=== PATIENT | male | born 1940 | race Caucasian/White ===

== ENCOUNTER → 2016-10-21 | Outpatient (CLI) | payer OTHER ==
[~2016-10-21] MED LIST: AMLO-114 PO; ASCO100061 PO; ASPEC81 PO; ESCI1TAB6 PO; FERR325T PO; FERR325T51 PO; LPT/40 PO; LPT10 PO; MULT-513 PO; PANT40TA PO; PRT/40 PO; SELE200T9 PO
[2016-10-21 13:37] LABS: BASO % 0.2 %; BASO ABS # 0.01 K/uL (0-0.2); COMPLETE YES; EOS % 0.6 %; HEMATOCRIT 41.6 % (42-52); IG% 0.4 %; LYMPH % 27.9 %; LYMPH ABS # 1.49 K/uL (1.2-3.4); MEAN CELL VOLUME 95.4 fL (80-100); MEAN CORPUSCULAR HEMOGLOBIN 31.4 pg (25-34); MEAN CORPUSCULAR HGB CONC 32.9 g/dl (32-36); MEAN PLATELET VOLUME 10.4 fL (7.4-10.4); MONO % 10.7 %; NEUT % 60.2 %; PLATELET COUNT 207 K/uL (130-400); RED BLOOD COUNT 4.36 M/uL (4.7-6.1); WHITE BLOOD COUNT 5.34 K/uL (4.8-10.8)
[2016-10-21 13:49] LABS: ALT/SGPT 26 U/L (12-78); AST/SGOT 22 U/L (15-37); BLOOD UREA NITROGEN 22 mg/dl (7-18); BUN/CREATININE RATIO 17.3 (10-20); CALCIUM 8.7 mg/dl (8.5-10.1); CARBON DIOXIDE 24 mmol/L (21-32); CHLORIDE 109 mmol/L (98-107); GLUCOSE 98 mg/dl (70-99); SODIUM 141 mmol/L (136-145)
[2016-10-21 13:59] LABS: ALB/GLOB RATIO 0.9 (0.9-2); ALKALINE PHOSPHATASE 82 U/L (45-117)
[2016-10-21 14:53] LABS: LYME DISEASE AB IGG NEG (NEG)
[2016-10-21 14:56] LABS: LYME DISEASE AB IGM NEG (NEG)
--- NOTE | 2016-10-26 11:01 | CODING QUERY MEDICAL NECESSITY ---
CQSUPPORTING DIAGNOSIS NEEDED A supporting diagnosis is required for the test/procedure performed on this patient in order for us to be reimbursed by the patient's insurance. Please provide a supporting diagnosis for the following test/procedure listed below next to the test name along with your signature. *If there is no additional diagnosis for this patient that would support the following test/procedure please document that below next to the test/procedure. Test(s)/Procedure(s) that require a supporting diagnosis: DOS 10/21/16 VITAMIN B12 ORDERED BY JARRED NULL Provider Signature: Date: Thank you Reina Garcia Health Information Management Once completed, please kindly fax back to [phone] For questions please call [phone]
== END | disposition home or self-care (01) ==
LOC: C.LABPBG 07:38
PROVIDERS: ATTEND Family Medicine
DX: N52.9 Male erectile dysfunction, unspecified (principal); C61 Malignant neoplasm of prostate; R31.29 Other microscopic hematuria; R41.3 Other amnesia; R26.89 Other abnormalities of gait and mobility; R53.83 Other fatigue; D50.9 Iron deficiency anemia, unspecified

== ENCOUNTER 2016-10-24 15:13 | Inpatient (IN) | payer OTHER ==
[~2016-10-24] VITALS: Ht 175.3 cm; Wt 80.0 kg
[~2016-10-24 15:13] MED LIST changes: -ASCO100061 PO; -ASPEC81 PO; -GADAVIST IV PRN; -LPT/40 PO; -LPT10 PO; -PRT/40 PO
[2016-10-24] MEDS ORDERED: PRT/40 PO (15:31)
[2016-10-24] MEDS ORDERED: SODIUM CHLORIDE 0.9% 1000ML 1,000 ML IV SCH (16:41)
[2016-10-24] MEDS ORDERED: ASCO100061 PO (16:42)
[2016-10-24] MEDS ORDERED: LPT10 PO (16:44)
[2016-10-24 17:01] LABS: BASO % 0.2 %; BASO ABS # 0.01 K/uL (0-0.2); COMPLETE YES; EOS % 0.8 %; HEMATOCRIT 42.2 % (42-52); IG% 0.2 %; LYMPH % 30.5 %; LYMPH ABS # 1.59 K/uL (1.2-3.4); MEAN CELL VOLUME 93.4 fL (80-100); MEAN CORPUSCULAR HEMOGLOBIN 30.5 pg (25-34); MEAN CORPUSCULAR HGB CONC 32.7 g/dl (32-36); MEAN PLATELET VOLUME 9.5 fL (7.4-10.4); MONO % 10.2 %; NEUT % 58.1 %; PLATELET COUNT 202 K/uL (130-400); RED BLOOD COUNT 4.52 M/uL (4.7-6.1); WHITE BLOOD COUNT 5.21 K/uL (4.8-10.8)
[2016-10-24 17:07] LABS: PARTIAL THROMBOPLASTIN RATIO 1.1; PROTHROMBIN TIME (PATIENT) 10.7 SECONDS (9.0-12.0)
[2016-10-24 17:08] LABS: BUN/CREATININE RATIO 13.3 (10-20); CALCIUM 8.5 mg/dl (8.5-10.1); CREATININE 1.3 mg/dl (0.60-1.40); POTASSIUM 3.8 mmol/L (3.5-5.1)
--- NOTE | 2016-10-24 17:08 | DIAGNOSTIC IMAGING REPORT ---
CHEST ONE VIEW PORTABLE CLINICAL HISTORY: Stroke COMPARISON STUDY: Chest CT November 12, 2015. FINDINGS: There is no pneumothorax. Mild elevation of the right hemidiaphragm is unchanged. Linear bibasilar opacities suggest atelectasis. There is no evidence of pulmonary edema. Mild cardiomegaly is unchanged. IMPRESSION: 1. No acute findings. 2. Linear bibasilar opacities suggestive of atelectasis. Electronically signed by: Angel Mann M.D. 10/24/2016 5:06 PM Dictated Date/Time: 10/24/2016 5:06 PM
[2016-10-24] MEDS ORDERED: PHARMACIST DISCHARGE MED REC CONSULT PRN (18:00)
[2016-10-24 20:00] VITALS: BP 162/80; PULSE 80; TEMP 36.9; O2SAT 95; Ht 175.3 cm; Wt 80.0 kg
--- NOTE | 2016-10-24 20:34 | EMERGENCY ROOM VISIT NOTE ---
History Report prepared by Ruben: Giovani Cedeño Under the Supervision of: Dr. Krunal Smith M.D. First contact with patient: 16:29 Chief Complaint: ABNORMAL DIAGNOSTIC TESTING Stated Complaint: ABNORMAL MRI History of Present Illness The patient is a 75 year old male who presents to the Emergency Room with an abnormal MRI that was taken earlier today. Per the patient's family, Dr. Hernandes of neurology had ordered the MRI because the patient had fallen while walking in June, and has been feeling fatigued for a while. The patient says that he has noticed feeling off balance intermittently for the past few days. The MRI revealed a 4x4 area consistent with an acute lacunar infarct. The patient states that he currently feels fine. He denies any fevers, recent cold symptoms , vision problems, trouble swallowing, abdominal pain, vomiting, diarrhea, or unilateral numbness or weakness. The patient was taken off Aspirin because he had went through radiation and had a lot of bleeding, per the patient's family. The patient does have a history of a stroke. Source of History: patient, family Onset: Earlier today Position: other (global - abnormal MRI) Quality: other (4x4 area consistent with an acute lacunar infarct) Associated Symptoms: + fatigue, No fevers, No vomiting, No abdominal pain, No diarrhea, No weakness (unilateral), No numbness (unilateral) Note: Associated symptoms: Off balance intermittently past few days. Denies recent cold symptoms, vision problems, trouble swallowing. Review of Systems See HPI for pertinent positives & negatives. A total of 10 systems reviewed and were otherwise negative. Past Medical & Surgical Medical Problems: (1) CVA (cerebral vascular accident) (2) Hypertension Family History Diabetes mellitus Heart disease Hypertension Social History Smoking Status: Never Smoker Alcohol Use: none Drug Use: none Marital Status: Housing Status: lives with family Occupation Status: employed, retired Current/Historical Medications Scheduled Amlodipine (Norvasc), 10 MG PO DAILY Ascorbic Acid (Ascorbic Acid), 1 TAB PO DAILY Atorvastatin (Atorvastatin Calcium), 1 TAB PO DAILY Ferrous Sulfate (Ferrous Sulfate), 1 TAB PO DAILY Multivitamins/Minerals (Mvi With Minerals), 1 TAB PO DAILY Pantoprazole (Pantoprazole Sodium), 1 TAB PO DAILY Allergies Coded Allergies: No Known Allergies (Unverified , 10/24/16) Physical Exam Vital Signs Date Time Temp Pulse Resp B/P (MAP) Pulse Ox O2 Delivery O2 Flow Rate FiO2 10/24/16 18:33 68 18 147/81 98 Room Air 10/24/16 17:05 70 18 147/81 97 Room Air 10/24/16 15:39 84 10/24/16 15:36 76 18 158/81 97 Room Air 10/24/16 15:20 36.9 77 18 157/81 97 Room Air Physical Exam Constitutional: Vital signs reviewed. Eyes: Pupils are equal round reactive to light. Conjunctiva are noninjected. ENT: Pharynx is clear without erythema or exudate. Mucous membranes are moist. Neck supple without meningeal signs. Respiratory: Clear to auscultation bilaterally. Breath sounds are equal bilaterally. Cardiovascular: Regular rate and rhythm. No rubs or gallops. No carotid bruits. GI: Soft, nondistended and nontender. Bowel sounds are present. Musculoskeletal: No peripheral edema. No lower extremity tenderness. Integumentary: No cyanosis. Neurological: The patient is awake and alert. Cranial nerves II-XII are intact. Motor is 5 out of 5 all extremities. Sensation is intact to light touch all extremities. Normal speech. No pronator drift. Psychiatric: Normal affect. Medical Decision & Procedures ER Provider Diagnostic Interpretation: X-ray results as stated below per interpretation by me and the radiologist: CHEST ONE VIEW PORTABLE CLINICAL HISTORY: Stroke COMPARISON STUDY: Chest CT November 12, 2015. FINDINGS: There is no pneumothorax. Mild elevation of the right hemidiaphragm is unchanged. Linear bibasilar opacities suggest atelectasis. There is no evidence of pulmonary edema. Mild cardiomegaly is unchanged. IMPRESSION: 1. No acute findings. 2. Linear bibasilar opacities suggestive of atelectasis. Electronically signed by: Angel Mann M.D. 10/24/2016 5:06 PM Dictated Date/Time: 10/24/2016 5:06 PM Laboratory Results 10/24/16 15:35 Red Blood Count 4.52, Mean Corpuscular Volume 93.4, Mean Corpuscular Hemoglobin 30.5, Mean Corpuscular Hemoglobin Concent 32.7, Mean Platelet Volume 9.5, Neutrophils (%) (Auto) 58.1, Lymphocytes (%) (Auto) 30.5, Monocytes (%) (Auto) 10.2, Eosinophils (%) (Auto) 0.8, Basophils (%) (Auto) 0.2, Neutrophils # (Auto ) 3.03, Lymphocytes # (Auto) 1.59, Monocytes # (Auto) 0.53, Eosinophils # (Auto ) 0.04, Basophils # (Auto) 0.01 10/24/16 15:35 Test 10/24/16 15:35 White Blood Count 5.21 K/uL (4.8-10.8) Red Blood Count 4.52 M/uL (4.7-6.1) Hemoglobin 13.8 g/dL (14.0-18.0) Hematocrit 42.2 % (42-52) Mean Corpuscular Volume 93.4 fL (80-100) Mean Corpuscular Hemoglobin 30.5 pg (25-34) Mean Corpuscular Hemoglobin Concent 32.7 g/dl (32-36) Platelet Count 202 K/uL (130-400) Mean Platelet Volume 9.5 fL (7.4-10.4) Neutrophils (%) (Auto) 58.1 % Lymphocytes (%) (Auto) 30.5 % Monocytes (%) (Auto) 10.2 % Eosinophils (%) (Auto) 0.8 % Basophils (%) (Auto) 0.2 % Neutrophils # (Auto) 3.03 K/uL (1.4-6.5) Lymphocytes # (Auto) 1.59 K/uL (1.2-3.4) Monocytes # (Auto) 0.53 K/uL (0.11-0.59) Eosinophils # (Auto) 0.04 K/uL (0-0.5) Basophils # (Auto) 0.01 K/uL (0-0.2) RDW Standard Deviation 46.5 fL (36.4-46.3) RDW Coefficient of Variation 13.6 % (11.5-14.5) Immature Granulocyte % (Auto) 0.2 % Immature Granulocyte # (Auto) 0.01 K/uL (0.00-0.02) Prothrombin Time 10.7 SECONDS (9.0-12.0) Prothromb Time International Ratio 1.0 (0.9-1.1) Activated Partial Thromboplast Time 28.2 SECONDS (21.0-31.0) Partial Thromboplastin Ratio 1.1 Anion Gap 8.0 mmol/L (3-11) Est Creatinine Clear Calc Drug Dose 47.6 ml/min Estimated GFR () 61.0 Estimated GFR (Non- 52.6 BUN/Creatinine Ratio 13.3 (10-20) Calcium Level 8.5 mg/dl (8.5-10.1) Medications Administered Medications (Trade) Dose Ordered Sig/Arturo Route Start Time Stop Time Status Last Admin Dose Admin Sodium Chloride 1,000 ml @ 50 mls/hr Q20H IV 10/24/16 16:41 11/23/16 16:40 10/24/16 16:41 50 MLS/HR ECG Indication: other (stroke) Rate (beats per minute): 72 Rhythm: normal sinus Findings: no acute ischemic change, no ectopy, other (limited due to baseline artifact) ED Course 1632: The patient was evaluated in room C4. A complete history and physical exam was performed. The patient verbally expressed understanding and agreement of the treatment plan. The patient will be evaluated for further treatment. 1639: I discussed the patient with Dr. Alamo's PA - Dr. Alamo will evaluate the patient for further treatment. 1641: Ordered NSS 1000 ml @ 50 mls/hr IV. Medical Decision This is a 75-year-old male who presents with an abnormal MRI. I did perform a limited focused review of portions of the patient's old chart on the electronic medical record. The patient had an MRI of the brain today which showed a 4x4 mm area consistent with an acute lacunar infarct. He also has increased signal within the distal basilar artery concerning for thrombus or slow flow. Blood Pressure Screening: Patient was found to have an elevated blood pressure and was referred to their primary doctor for recheck and further treatment. Medication Reconciliation: I attest that I have personally reviewed the patient' s current medication list. I did evaluate the patient as noted above. The patient is presenting with an MRI showing acute lacunar infarct as well as concerning flow in the basilar artery. Dr. Hernandes called and spoke to another physician and recommended he be admitted to the hospital for further evaluation. IV access was established. The patient was placed on a continuous monitoring engineer. I did order and personally review the patient's 12-lead EKG and chest x-ray as described above. I did order and review the patient's blood work as noted in the electronic medical record. I did discuss the case with the hospitalist and residential case manager. Consults Time Called: 163 Consulting Physician: Dr. Ashutosh STERN Returned Call: [phone] I discussed the patient with Dr. Alamo's PA - Dr. Alamo will evaluate the patient for further treatment. Impression Primary Impression: Acute CVA (cerebrovascular accident) Scribe Attestation The scribe's documentation has been prepared under my direct and personally reviewed by me in its entirety. I confirm that the note above accurately reflects all work, treatment, procedures, and medical decision making performed by me. Departure Information Dispostion Being Evaluated By Hospitalist Referrals Chanel Cruz M.D. (PCP) Patient Instructions [facility]
--- NOTE | 2016-10-24 20:57 | DIAGNOSTIC IMAGING REPORT ---
MRA OF THE INTRACRANIAL CIRCULATION WITHOUT CONTRAST CLINICAL HISTORY: Stroke - Attention to [place] [facility] [place]. COMPARISON STUDY: MRI of the brain performed earlier today. TECHNIQUE: Utilizing a 1.5 Michelle magnet and 3-D [id number] technique, unenhanced MRA of the intracranial circulation was obtained. FINDINGS: This exam is moderately compromised by motion artifact. However, the bilateral M1, M2, A1 and A2 segments appear patent. There is a diminutive right vertebral artery which was shown to be patent on contrast-enhanced MRA of the neck. The left vertebral artery is dominant and patent. 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 There are bilateral posterior communicating arteries. The posterior cerebral arteries appear diminutive. These are suboptimally assessed due to artifact on this exam. There is diminished flow within the bilateral posterior cerebral arteries although the vessels are likely patent. There is a suspected tiny 3 mm aneurysm arising from the inferior aspect of the left supraclinoid ICA. IMPRESSION: 1. 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 This accounts for the abnormality on MRI of the brain from earlier today. This occlusion is age indeterminate although probably chronic. 2. Minimal flow identified within the bilateral posterior cerebral arteries which are suboptimally assessed on this exam due to artifact. These vessels are likely patent although occlusion would be difficult to exclude on this exam. 3. 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 Electronically signed by: Angel Mann M.D. 10/24/2016 8:56 PM Dictated Date/Time: 10/24/2016 8:05 PM
--- NOTE | 2016-10-24 20:57 | DIAGNOSTIC IMAGING REPORT ---
MRA OF THE NECK WITH AND WITHOUT CONTRAST CLINICAL HISTORY: Stroke. COMPARISON STUDY: None. TECHNIQUE: Unenhanced and contrast-enhanced MRA of the neck was performed. Injection of 8 mL of Gadavist IV was uneventful. NASCET criteria were utilized to estimate the degree of carotid stenosis. FINDINGS: The vertebral arteries are suboptimally assessed on this exam. The vertebral artery origins are not imaged on this exam. The left vertebral artery is dominant and patent. There is no significant stenosis within the bilateral common carotid and internal carotid arteries. Note is made of occlusion of the proximal basilar artery with distal reconstitution. This accounts for the abnormality on MRI of the brain from earlier today. IMPRESSION: 1. 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 This occlusion is age indeterminate although probably chronic given the findings on the brain MRI. 2. No significant stenosis within the bilateral common carotid and internal carotid arteries. Electronically signed by: Angel Mann M.D. 10/24/2016 8:56 PM Dictated Date/Time: 10/24/2016 8:08 PM
[2016-10-24 23:33] VITALS: BP 130/71; PULSE 76; TEMP 36.9; O2SAT 97
[2016-10-25 01:10] LABS: CKMB/CK RATIO 1.7 (0-3.0)
[2016-10-25 03:49] VITALS: BP 153/85; PULSE 81; TEMP 37; O2SAT 96
[2016-10-25 06:42] LABS: ESTIMATED AVERAGE GLUCOSE 114 mg/dl; HA1C FLAG Normal (Normal)
--- NOTE | 2016-10-25 08:02 | History and Physical ---
History & Physical Date & Time of Service: Oct 25, 2016 at 07:52 Chief Complaint: CVA Primary Care Physician: Chanel Cruz M.D. History of Present Illness Source: patient, family, spouse The patient is a 75-year-old male referred to the emergency department by Dr. Hernandes his neurologist after an MRI showed a right acute lacunar infarct. Family has noted a worsening in his general mentation over the past few days, and he has noticed more of an issue with imbalance. The MRI was initially performed due to the patient's history of falling while walking in June, and some persistent fatigue since that time. The patient has had a normal appetite , and no difficulty with speech or with swallowing. The patient has a history of prostate cancer a few years ago, and was taken off aspirin due to hematuria at that time. His aspirin was not restarted after that incident. Past Medical/Surgical History Medical Problems: (1) Hypertension Status: Chronic Family History Diabetes mellitus Heart disease Hypertension Social History Smoking Status: Never Smoker Smokeless Tobacco Use: No Alcohol Use: none Drug Use: none Marital Status: Housing status: lives with family Occupational Status: employed, retired Multi-Drug Resistant Organisms History of MDRO: No Allergies Coded Allergies: No Known Allergies (Unverified , 10/24/16) Home Medications Scheduled Amlodipine (Norvasc), 10 MG PO DAILY Ascorbic Acid (Ascorbic Acid), 1,000 MG PO DAILY Atorvastatin (Atorvastatin Calcium), 1 TAB PO DAILY Ferrous Sulfate (Ferrous Sulfate), 325 MG PO DAILY Multivitamins/Minerals (Mvi With Minerals), 1 TAB PO DAILY Pantoprazole (Pantoprazole Sodium), 1 TAB PO DAILY Review of Systems The patient denies chest pain, palpitations, shortness of breath, cough, lower extremity swelling, sore throat, fevers, chills, sweats, weight change, fatigue , nausea, vomiting, abdominal pain, pelvic pain, blood in urine or stool, dysuria, urinary frequency or urgency, rash, abnormal bruising or bleeding, focal weakness, numbness or tingling in arms or legs, night sweats, or allergy symptoms. The review of systems is otherwise negative other than for that already noted above, and at least 10 systems have been reviewed. Physical Exam Vital Signs Date Time Temp Pulse Resp B/P (MAP) Pulse Ox O2 Delivery O2 Flow Rate FiO2 10/25/16 04:00 Room Air 10/25/16 03:49 37.0 81 16 153/85 (107) 96 Room Air 10/25/16 00:00 Room Air 10/24/16 23:33 36.9 76 17 130/71 (90) 97 Room Air 10/24/16 20:00 36.9 80 20 162/80 95 Room Air 10/24/16 20:00 Room Air 10/24/16 19:49 36.9 68 18 147/81 98 10/24/16 18:33 68 18 147/81 98 Room Air 10/24/16 17:05 70 18 147/81 97 Room Air 10/24/16 15:39 84 10/24/16 15:36 76 18 158/81 97 Room Air 10/24/16 15:20 36.9 77 18 157/81 97 Room Air The patient is awake, well-developed and adequately nourished, alert and oriented 3, normocephalic and atraumatic, lying in bed and in no acute distress. HEENT--PERRL, EOMI, mucous membranes and oropharynx normal. Neck--supple, no JVD or bruits, thyroid normal, trachea midline, no adenopathy. Heart--normal S1 and S2, no extra beats, no murmurs, rubs or gallops. Lungs--clear bilaterally with good air movement, no respiratory distress, no accessory muscle use. Abdomen--normal bowel sounds and soft, nontender and nondistended, no hernias or masses, no organomegaly. Extremities--no cyanosis, clubbing or edema. There are good distal pulses b/l. Dermatologic--normal skin turgor, normal color, warm and dry, no abnormal lymph nodes, no rash. Neurologic--cranial nerves II through XII grossly intact. Rheumatologic--normal range of motion of joints. Psychiatric--normal affect. Diagnostics Laboratory Results Results Past 24 Hours Test 10/24/16 15:35 10/25/16 00:16 10/25/16 07:37 10/25/16 07:42 Range/Units White Blood Count 5.21 4.8-10.8 K/uL Red Blood Count 4.52 4.7-6.1 M/uL Hemoglobin 13.8 14.0-18.0 g/dL Hematocrit 42.2 42-52 % Mean Corpuscular Volume 93.4 80-100 fL Mean Corpuscular Hemoglobin 30.5 25-34 pg Mean Corpuscular Hemoglobin Concent 32.7 32-36 g/dl Platelet Count 202 130-400 K/uL Mean Platelet Volume 9.5 7.4-10.4 fL Neutrophils (%) (Auto) 58.1 % Lymphocytes (%) (Auto) 30.5 % Monocytes (%) (Auto) 10.2 % Eosinophils (%) (Auto) 0.8 % Basophils (%) (Auto) 0.2 % Neutrophils # (Auto) 3.03 1.4-6.5 K/uL Lymphocytes # (Auto) 1.59 1.2-3.4 K/uL Monocytes # (Auto) 0.53 0.11-0.59 K/uL Eosinophils # (Auto) 0.04 0-0.5 K/uL Basophils # (Auto) 0.01 0-0.2 K/uL RDW Standard Deviation 46.5 36.4-46.3 fL RDW Coefficient of Variation 13.6 11.5-14.5 % Immature Granulocyte % (Auto) 0.2 % Immature Granulocyte # (Auto) 0.01 0.00-0.02 K/uL Prothrombin Time 10.7 9.0-12.0 SECONDS Prothromb Time International Ratio 1.0 0.9-1.1 Activated Partial Thromboplast Time 28.2 21.0-31.0 SECONDS Partial Thromboplastin Ratio 1.1 Sodium Level 140 136-145 mmol/L Potassium Level 3.8 3.5-5.1 mmol/L Chloride Level 107 98-107 mmol/L Carbon Dioxide Level 25 21-32 mmol/L Anion Gap 8.0 3-11 mmol/L Blood Urea Nitrogen 17 7-18 mg/dl Creatinine 1.30 0.60-1.40 mg/dl Est Creatinine Clear Calc Drug Dose 47.6 ml/min Estimated GFR () 61.0 Estimated GFR (Non- 52.6 BUN/Creatinine Ratio 13.3 10-20 Random Glucose 130 70-99 mg/dl Estimated Average Glucose 114 mg/dl Hemoglobin A1c 5.6 4.5-5.6 % Calcium Level 8.5 8.5-10.1 mg/dl Total Creatine Kinase 82 39-308 U/L Creatine Kinase MB 1.4 0.5-3.6 ng/ml Creatine Kinase MB Ratio 1.7 0-3.0 Troponin I < 0.015 0-0.045 ng/ml Diagnostic Radiology Patient Name: STEPHANY GREEN Unit Number: [id number] Dictated: 10/24/161705 Transcribed: 10/24/161705 JA Printed Date/Time: [~ rep prt dt]/[~ rep prt tm] [~ rep ct labl] - [~ rep ct ivnm] [facility] [place] [place] [address] Dictated: 10/24/161705 Transcribed: 10/24/161705 JA Printed Date/Time: [~ rep prt dt]/[~ rep prt tm] [~ rep ct labl] - [~ rep ct ivnm] [~ rep ct add3]] CHEST ONE VIEW PORTABLE CLINICAL HISTORY: Stroke COMPARISON STUDY: Chest CT November 12, 2015. FINDINGS: There is no pneumothorax. Mild elevation of the right hemidiaphragm is unchanged. Linear bibasilar opacities suggest atelectasis. There is no evidence of pulmonary edema. Mild cardiomegaly is unchanged. IMPRESSION: 1. No acute findings. 2. Linear bibasilar opacities suggestive of atelectasis. Electronically signed by: Angel Mann M.D. 10/24/2016 5:06 PM Dictated Date/Time: 10/24/2016 5:06 PM The status of this report is Signed. Draft = Not yet reviewed or approved by Radiologist. Signed = Reviewed and approved by Radiologist. <AttendingPhy></AttendingPhy> <FamilyPhy>Chanel Cruz M.D.</FamilyPhy> < PrimaryPhy>Chanel Crzu M.D.</PrimaryPhy> <UnitNumber>[id number]</UnitNumber> < VisitNumber>[id number]</VisitNumber> <PatientName>STEPHANY GREEN</PatientName > <DateOfBirth>1940</DateOfBirth> <Location>C.EDC</Location> <ServiceDate> 10/24/16</ServiceDate> <MNE>ESINDI</MNE> <OrderingPhy>Krunal Smith MD</ OrderingPhy> <OrderingPhyMNE>f rep ord dr pryor</OrderingPhyMNE> <DictatingPhyMNE> f rep dict dr pryor</DictatingPhyMNE> <CCListMNE>f rep ct mne</CCListMNE> < AdmittingPhyMNE>f pt admit dr pryor</AdmittingPhyMNE> <AttendingPhyMNE>f pt attend dr pryor</AttendingPhyMNE> <ConsultingPhyMNE>f pt consult dr pryor</ConsultingPhyMNE> <FamilyPhyMNE>f pt fam dr pryor</FamilyPhyMNE> <OtherPhyMNE>f pt other dr pryor</OtherPhyMNE> < PrimaryPhyMNE>f pt prim care dr pryor</PrimaryPhyMNE> <ReferringPhyMNE>f pt referring dr pryor</ReferringPhyMNE> Patient Name: STEPHANY GREEN Unit Number: [id number] Dictated: 10/24/162007 Transcribed: 10/24/162012 ELIEZER Printed Date/Time: [~ rep prt dt]/[~ rep prt tm] [~ rep ct labl] - [~ rep ct ivnm] [facility] Radiology Department [place] [id number] Dictated: 10/24/162007 Transcribed: 10/24/162012 JA Printed Date/Time: [~ rep prt dt]/[~ rep prt tm] [~ rep ct labl] - [~ rep ct ivnm] MRA OF THE NECK WITH AND WITHOUT CONTRAST CLINICAL HISTORY: Stroke. COMPARISON STUDY: None. TECHNIQUE: Unenhanced and contrast-enhanced MRA of the neck was performed. Injection of 8 mL of Gadavist IV was uneventful. NASCET criteria were utilized to estimate the degree of carotid stenosis. FINDINGS: The vertebral arteries are suboptimally assessed on this exam. The vertebral artery origins are not imaged on this exam. The left vertebral artery is dominant and patent. There is no significant stenosis within the bilateral common carotid and internal carotid arteries. Note is made of occlusion of the proximal basilar artery with distal reconstitution. This accounts for the abnormality on MRI of the brain from earlier today. IMPRESSION: 1. 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 This occlusion is age indeterminate although probably chronic given the findings on the brain MRI. 2. No significant stenosis within the bilateral common carotid and internal carotid arteries. Electronically signed by: Angel Mann M.D. 10/24/2016 8:56 PM Dictated Date/Time: 10/24/2016 8:08 PM The status of this report is Signed. Draft = Not yet reviewed or approved by Radiologist. Signed = Reviewed and approved by Radiologist. <AttendingPhy>Ramiro Alamo M.D.</AttendingPhy> <FamilyPhy>Chanel Cruz M.D.</FamilyPhy> <PrimaryPhy>Chanel Cruz M.D.</PrimaryPhy> <UnitNumber> [id number]</UnitNumber> <VisitNumber>[id number]</VisitNumber> <PatientName> STEPHANY GREEN</PatientName> <DateOfBirth>1940</DateOfBirth> <Location> C.2T</Location> <ServiceDate>10/24/16</ServiceDate> <MNE>ESINDI</MNE> < OrderingPhy>Ramiro Alamo M.D.</OrderingPhy> <OrderingPhyMNE>f rep ord dr pryor</OrderingPhyMNE> <DictatingPhyMNE>f rep dict dr pryor</DictatingPhyMNE> < CCListMNE>f rep ct konstantin</CCListMNE> <AdmittingPhyMNE>f pt admit dr pryor</ AdmittingPhyMNE> <AttendingPhyMNE>f pt attend dr pryor</AttendingPhyMNE> <ConsultingPhyMNE>f pt consult dr pryor</ConsultingPhyMNE> <FamilyPhyMNE>f pt fam dr pryor</FamilyPhyMNE> <OtherPhyMNE>f pt other dr pryor</OtherPhyMNE> < PrimaryPhyMNE>f pt prim care dr pryor</PrimaryPhyMNE> <ReferringPhyMNE>f pt referring dr pryor</ReferringPhyMNE> Patient Name: STEPHANY GREEN Unit Number: [id number] Dictated: 10/24/162004 Transcribed: 10/24/162020 JA Printed Date/Time: [~ rep prt dt]/[~ rep prt tm] [~ rep ct labl] - [~ rep ct ivnm] [facility] [place] [place] [address] Dictated: 10/24/162004 Transcribed: 10/24/162020 JA Printed Date/Time: [~ rep prt dt]/[~ rep prt tm] [~ rep ct labl] - [~ rep ct ivnm] [~ rep ct add3]] MRA OF THE INTRACRANIAL CIRCULATION WITHOUT CONTRAST CLINICAL HISTORY: Stroke - Attention to [place]. COMPARISON STUDY: MRI of the brain performed earlier today. TECHNIQUE: Utilizing a 1.5 Michelle magnet and 3-D [id number] technique, unenhanced MRA of the intracranial circulation was obtained. FINDINGS: This exam is moderately compromised by motion artifact. However, the bilateral M1, M2, A1 and A2 segments appear patent. There is a diminutive right vertebral artery which was shown to be patent on contrast-enhanced MRA of the neck. The left vertebral artery is dominant and patent. 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 There are bilateral posterior communicating arteries. The posterior cerebral arteries appear diminutive. These are suboptimally assessed due to artifact on this exam. There is diminished flow within the bilateral posterior cerebral arteries although the vessels are likely patent. There is a suspected tiny 3 mm aneurysm arising from the inferior aspect of the left supraclinoid ICA. IMPRESSION: 1. 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 This accounts for the abnormality on MRI of the brain from earlier today. This occlusion is age indeterminate although probably chronic. 2. Minimal flow identified within the bilateral posterior cerebral arteries which are suboptimally assessed on this exam due to artifact. These vessels are likely patent although occlusion would be difficult to exclude on this exam. 3. 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 Electronically signed by: Angel Mann M.D. 10/24/2016 8:56 PM Dictated Date/Time: 10/24/2016 8:05 PM The status of this report is Signed. Draft = Not yet reviewed or approved by Radiologist. Signed = Reviewed and approved by Radiologist. <AttendingPhy>Ramiro Alamo M.D.</AttendingPhy> <FamilyPhy>Chanel Cruz M.D.</FamilyPhy> <PrimaryPhy>Chanel Cruz M.D.</PrimaryPhy> <UnitNumber> [id number]</UnitNumber> <VisitNumber>[id number]</VisitNumber> <PatientName> STEPHANY GREEN</PatientName> <DateOfBirth>1940</DateOfBirth> <Location> C.2T</Location> <ServiceDate>10/24/16</ServiceDate> <MNE>ESINDI</MNE> < OrderingPhy>Ramiro Alamo M.D.</OrderingPhy> <OrderingPhyMNE>f rep ord dr pryor</OrderingPhyMNE> <DictatingPhyMNE>f rep dict dr pryor</DictatingPhyMNE> < CCListMNE>f rep ct konstantin</CCListMNE> <AdmittingPhyMNE>f pt admit dr pryor</ AdmittingPhyMNE> <AttendingPhyMNE>f pt attend dr pryor</AttendingPhyMNE> <ConsultingPhyMNE>f pt consult dr pryor</ConsultingPhyMNE> <FamilyPhyMNE>f pt fam dr pryor</FamilyPhyMNE> <OtherPhyMNE>f pt other dr pryor</OtherPhyMNE> < PrimaryPhyMNE>f pt prim care dr pryor</PrimaryPhyMNE> <ReferringPhyMNE>f pt referring dr pryor</ReferringPhyMNE> EKG EKG shows normal sinus rhythm at 72 bpm, no significant change compared to 10/16 Impression Assessment and Plan Right lacunar infarct in lentiform nucleus --noted in outpatient MRI by his neurologist Dr. Hernandes, who will be consulted. We'll order an MRA of the head without contrast, and an MRA of the neck combo further assessment. We'll start aspirin 81 mg by mouth daily. Hypertension-- continue amlodipine 10 mg by mouth daily. Hyperlipidemia--continue atorvastatin daily. GERD--continue pantoprazole 40 mg by mouth daily. Level of Care Telemetry Advanced Directives Existing Advance Directive: No Existing Living Will: Yes Existing Power of Auto Suspension And Steering Mechanic: Yes Resuscitation Status FULL RESUSCITATION VTE Prophylaxis VTE Risk Assessment Done? Y/N: Yes Risk Level: Moderate Given or contraindicated: SCD's (a CT)
[2016-10-25 08:13] LABS: BASO % 0.2 %; BASO ABS # 0.01 K/uL (0-0.2); COMPLETE YES; EOS % 0.5 %; HEMATOCRIT 44.7 % (42-52); IG% 0.2 %; LYMPH % 26.8 %; LYMPH ABS # 1.54 K/uL (1.2-3.4); MEAN CELL VOLUME 93.3 fL (80-100); MEAN CORPUSCULAR HEMOGLOBIN 30.9 pg (25-34); MEAN CORPUSCULAR HGB CONC 33.1 g/dl (32-36); MEAN PLATELET VOLUME 9.4 fL (7.4-10.4); MONO % 8.2 %; NEUT % 64.1 %; PLATELET COUNT 212 K/uL (130-400); RED BLOOD COUNT 4.79 M/uL (4.7-6.1); WHITE BLOOD COUNT 5.75 K/uL (4.8-10.8)
[2016-10-25 08:33] LABS: PROTHROMBIN TIME (PATIENT) 11.2 SECONDS (9.0-12.0)
[2016-10-25 08:35] VITALS: BP 153/76; PULSE 84; O2SAT 96
[2016-10-25 08:49] LABS: BLOOD UREA NITROGEN 16 mg/dl (7-18); BUN/CREATININE RATIO 12.6 (10-20); CALCIUM 9.2 mg/dl (8.5-10.1); CARBON DIOXIDE 25 mmol/L (21-32); CHLORIDE 107 mmol/L (98-107); GLUCOSE 93 mg/dl (70-99); POTASSIUM 3.8 mmol/L (3.5-5.1); SODIUM 140 mmol/L (136-145)
[2016-10-25] MEDS: CEROVITE ADV FORMULA TAB PO SCH (08:50)
[2016-10-25] MEDS: ASPIRIN 81 MG ECTAB PO SCH (08:50)
[2016-10-25] MEDS: AMLODIPINE BESYLATE 5 MG TAB PO SCH (08:51)
[2016-10-25] MEDS: PANTOprazole SOD 40 MG TAB PO SCH (08:51)
[2016-10-25] MEDS: ASCORBIC ACID 500 MG TAB PO SCH (08:51)
[2016-10-25 08:54] LABS: CHOLESTEROL 172 mg/dl (0-200); CHOLESTEROL/HDL RATIO 3.2; CKMB/CK RATIO 2.1 (0-3.0); HDL CHOLESTEROL 53 mg/dl; LDL CHOLESTEROL CALCULATED 98 mg/dl; TRIGLYCERIDES 106 mg/dl (0-150); VERY LOW DENSITY LIPOPROT CALC 21 mg/dl
[2016-10-25] MEDS ORDERED: ATORVASTATIN 10 MG TAB PO SCH (09:00)
[2016-10-25] MEDS: FERROUS SULFATE 325 MG TAB PO SCH (09:08)
--- NOTE | 2016-10-25 09:33 | Neurology Consultation ---
Neurology Consultation Date of Consultation: Oct 25, 2016. Attending Physician: Roly Beck MD Primary Care Physician: Chanel Cruz M.D. Reason for Consultation: Recent stroke on outpatient MRI History of Present Illness Source: patient, clinic records, hospital records The patient is a 75-year-old male who was recently seen by Kylie Raymundo PA-C and Dr. Hoff on 11/11/2016 for a neurological consultation regarding poor balance and memory problems of a persistent nature over the past year. The patient had fallen down in June. He reports that he had been waiting to see a neurologist for quite some time prior to his recent appointment. He is been noted to have slow thinking and forgetfulness. 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 Patient's history is also significant for prostate cancer, recent treatment with recent radiation treatments, complicated by increased gastrointestinal bleeding and subsequent discontinuation of daily low- dose aspirin which she had been taking for many years prior without difficulty. The neurology Department was contacted late yesterday afternoon regarding this patient's recently completed brain MRI. I reviewed the images as well as the radiologist's interpretation of this test. The study reveals evidence of an acute, 4 mm, lacunar stroke within the right lentiform nucleus. There was also evidence of a possible thrombosis or diminished flow within the basilar artery. After reviewing this test I had recommended admission to the hospital for further evaluation and management. The patient is subsequent to completed MR angiography of the head and neck. These studies reveal a proximal occlusion within the basilar artery likely due to a chronic thrombosis. There is distal reconstitution although diminished flow in both posterior cerebral arteries is noted. No significant occlusive disease in the neck observed. There is a 3 mm left supraclinoid ICA aneurysm that is incidental. The patient does not really have any further specific neurological complaints. With directed questioning he believes his left side may be slightly weaker than the right. He notices a slight tendency to lean to the left with walking. He is not really certain of the onset of this particular difficulty, however. He also notes that he seems to lack energy or tolerance to general physical exertion. This issue has been going on for many months. He denies headache, vertigo, hearing loss, problems with speech or swallowing. Past Medical/Surgical History Medical Problems: (1) Acute CVA (cerebrovascular accident) Status: Acute (2) Chest pain Status: Acute (3) Left rib fracture Status: Acute Family History Family history notable for diabetes mellitus and hypertension Social History Smokeless Tobacco Use: No Alcohol Use: none Drug Use: none Marital Status: Housing Status: lives with family Occupation Status: employed, retired Allergies Coded Allergies: No Known Allergies (Unverified , 10/24/16) Current Inpatient Medications Current Inpatient Medications Medications (Trade) Dose Ordered Sig/Arturo Route Start Time Stop Time Status Last Admin Dose Admin Aspirin (Ecotrin Tab) 81 mg QAM PO 10/25/16 09:00 11/24/16 08:59 10/25/16 08:50 81 MG Miscellaneous Information (Pharmacist Discharge Med Rec Consult) 1 ea UD PRN N/A 10/24/16 18:00 11/23/16 17:59 Amlodipine Besylate (Norvasc Tab) 10 mg DAILY PO 10/25/16 09:00 11/24/16 08:59 10/25/16 08:51 10 MG Multivitamins/ Minerals (Multivitamin W/ Minerals Tab) 1 tab DAILY PO 10/25/16 09:00 11/24/16 08:59 10/25/16 08:50 1 TAB Pantoprazole Sodium (Protonix Tab) 40 mg DAILY PO 10/25/16 09:00 11/24/16 08:59 10/25/16 08:51 40 MG Ascorbic Acid (Vitamin C Tab) 1,000 mg DAILY PO 10/25/16 09:00 11/24/16 08:59 10/25/16 08:51 1,000 MG Ferrous Sulfate (Feosol Tab) 325 mg DAILY PO 10/25/16 09:00 11/24/16 08:59 Enoxaparin Sodium (Lovenox Inj) 40 mg QAM SQ 10/25/16 09:00 11/24/16 08:59 Atorvastatin Calcium (Lipitor Tab) 40 mg DAILY PO 10/26/16 09:00 11/24/16 08:59 Review of Systems A full 10 point review of systems was obtained from this patient with pertinent positives and negatives described in the history of present illness. All other systems were reviewed and are negative. Physical Exam Vital Signs (Past 24 Hrs): Date Time Temp Pulse Resp B/P (MAP) Pulse Ox O2 Delivery O2 Flow Rate FiO2 10/25/16 08:35 84 16 153/76 (101) 96 Room Air 10/25/16 04:00 Room Air 10/25/16 03:49 37.0 81 16 153/85 (107) 96 Room Air 10/25/16 00:00 Room Air 10/24/16 23:33 36.9 76 17 130/71 (90) 97 Room Air 10/24/16 20:00 36.9 80 20 162/80 95 Room Air 10/24/16 20:00 Room Air 10/24/16 19:49 36.9 68 18 147/81 98 10/24/16 18:33 68 18 147/81 98 Room Air 10/24/16 17:05 70 18 147/81 97 Room Air 10/24/16 15:39 84 10/24/16 15:36 76 18 158/81 97 Room Air 10/24/16 15:20 36.9 77 18 157/81 97 Room Air The patient is a well-developed, well-nourished, elderly male, no acute distress. He is alert and fully oriented. Recent and remote memory intact. Attention and concentration normal. Exhibits a normal spontaneous speech pattern and an age-appropriate fund of knowledge. Visual simmons full to confrontation. Visual acuity normal. Pupils equal round reactive to light and accommodation. Eye movements normal. Visual sensation intact. There is slight weakness of the left lower facial musculature. No gross facial droop, however. Hearing intact. Palate elevates to midline. Shoulder shrug intact bilaterally. Tongue protrudes to midline. Sensation intact to light touch, temperature, vibration, and proprioception for all 4 limbs. Deep tendon reflexes are intact and symmetrical for the arms and legs. Plantar responses downgoing. There is slight dysmetria with finger to nose for the left arm. Slight dysmetria with heel to hayes for the left leg. Finger to nose and heel to hayes normal on the right. The optic disks and posterior segments are normal to ophthalmoscopic examination. No papilledema or hemorrhages. Carotid pulses normal bilaterally, no bruits. Patient exhibits a slight tendency to list to the left with ambulation. Gait does not appear to be grossly hemiparetic, however. Balance appears slightly impaired. Gross motor strength normal for all 4 limbs proximally and distally. Muscle tone normal throughout, no atrophy. No abnormal movements. Laboratory Results Past 24 Hours: 10/25/16 07:37 Red Blood Count 4.79, Mean Corpuscular Volume 93.3, Mean Corpuscular Hemoglobin 30.9, Mean Corpuscular Hemoglobin Concent 33.1, Mean Platelet Volume 9.4, Neutrophils (%) (Auto) 64.1, Lymphocytes (%) (Auto) 26.8, Monocytes (%) (Auto) 8.2, Eosinophils (%) (Auto) 0.5, Basophils (%) (Auto) 0.2, Neutrophils # (Auto) 3.69, Lymphocytes # (Auto) 1.54, Monocytes # (Auto) 0.47, Eosinophils # (Auto) 0.03, Basophils # (Auto) 0.01 10/25/16 07:42 Test 10/24/16 15:35 10/25/16 07:37 10/25/16 07:42 Activated Partial Thromboplast Time 28.2 SECONDS (21.0-31.0) Partial Thromboplastin Ratio 1.1 Estimated Average Glucose 114 mg/dl Hemoglobin A1c 5.6 % (4.5-5.6) White Blood Count 5.75 K/uL (4.8-10.8) Red Blood Count 4.79 M/uL (4.7-6.1) Hemoglobin 14.8 g/dL (14.0-18.0) Hematocrit 44.7 % (42-52) Mean Corpuscular Volume 93.3 fL (80-100) Mean Corpuscular Hemoglobin 30.9 pg (25-34) Mean Corpuscular Hemoglobin Concent 33.1 g/dl (32-36) Platelet Count 212 K/uL (130-400) Mean Platelet Volume 9.4 fL (7.4-10.4) Neutrophils (%) (Auto) 64.1 % Lymphocytes (%) (Auto) 26.8 % Monocytes (%) (Auto) 8.2 % Eosinophils (%) (Auto) 0.5 % Basophils (%) (Auto) 0.2 % Neutrophils # (Auto) 3.69 K/uL (1.4-6.5) Lymphocytes # (Auto) 1.54 K/uL (1.2-3.4) Monocytes # (Auto) 0.47 K/uL (0.11-0.59) Eosinophils # (Auto) 0.03 K/uL (0-0.5) Basophils # (Auto) 0.01 K/uL (0-0.2) RDW Standard Deviation 46.5 fL (36.4-46.3) RDW Coefficient of Variation 13.5 % (11.5-14.5) Immature Granulocyte % (Auto) 0.2 % Immature Granulocyte # (Auto) 0.01 K/uL (0.00-0.02) Prothrombin Time 11.2 SECONDS (9.0-12.0) Prothromb Time International Ratio 1.0 (0.9-1.1) Anion Gap 8.0 mmol/L (3-11) Est Creatinine Clear Calc Drug Dose 47.6 ml/min Estimated GFR () 61.0 Estimated GFR (Non- 52.6 BUN/Creatinine Ratio 12.6 (10-20) Calcium Level 9.2 mg/dl (8.5-10.1) Total Creatine Kinase 78 U/L (39-308) Creatine Kinase MB 1.6 ng/ml (0.5-3.6) Creatine Kinase MB Ratio 2.1 (0-3.0) Troponin I < 0.015 ng/ml (0-0.045) Triglycerides Level 106 mg/dl (0-150) Cholesterol Level 172 mg/dl (0-200) HDL Cholesterol 53 mg/dl LDL Cholesterol, Calculated 98 mg/dl VLDL Cholesterol, Calculated 21 mg/dl Cholesterol/HDL Ratio 3.2 Imaging MRI of the brain and MRA of the head and neck reviewed and as described in the history of present illness. Other review data includes an electrocardiogram which reveals a normal sinus rhythm, 72 bpm. Labs completed on October 21 including a sedimentation rate, Lyme antibody screen, vitamin B 12 level, and TSH are generally unremarkable. Impression Acute right lentiform ischemic lacunar stroke producing a very mild left hemiparesis and perhaps slightly ataxic gait pattern. 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 Plan Agree with restarting aspirin 81 mg per day. Patient will need to monitor for any recurrence of abnormal bleeding. Follow-up with results of transthoracic echocardiogram. There is no specific treatment for a chronically thrombosed basilar artery. However, an outpatient consultation with a stroke specialist at [facility] would be reasonable. A repeat MRA of the head or CT angiogram should be considered within the next year to reevaluate the incidental 3 mm supraclinoid left ICA aneurysm. PT/OT/speech therapy No further immediate recommendations. Outpatient follow-up with Kylie Raymundo PA-C/Dr. Nelsy Hoff.
[2016-10-25] MEDS: ENOXAPARIN 40 MG/0.4 ML SYR SQ SCH (09:43)
[2016-10-25 10:59] LABS: FERRITIN 26.2 ng/ml (8.0-388.0)
--- NOTE | 2016-10-25 11:50 | ECHOCARDIOGRAM REPORT ---
*NOTICE TO RECEIVING LIBERTARIAN AGENCY This information is strictly Confidential and protected under [place] law. [place] law prohibits you from making any further disclosure of this information unless further disclosure is expressly permitted by the written consent of the person to whom it pertains or is authorized by law. A general authorization for the release of medical or other information is not sufficient for this purpose. Hospital accepts no responsibility if the information is made available to any other person, INCLUDING THE PATIENT. Interpretation Summary * Name: STEPHANY GREEN Study Date: 10/25/2016 07:01 AM BP: 153/85 mmHg * Patient Location: C.2T\S\S239\S\1 HR: 73 * : 1940 (M/d/yyyy) Gender: Male Height: 69 in * Age: 75 yrs Ethnicity: [place] Weight: 182 lb * Ordering Physician: Ramiro Alamo * Referring Physician: Gael Hernandes * Performed By: Chanel Warner [facility] * * Reason For Study: CVA * BSA: 2.0 m2 * -- Conclusions -- * Compared with 09/08/14 study, no significant change. * The left ventricle is normal in size. * Left ventricular systolic function is normal. * Ejection Fraction = 55-60%. * The left ventricular wall motion is normal. * There is mild concentric left ventricular hypertrophy. * Grade I diastolic dysfunction, (abnormal relaxation pattern). * No significant valvular disease. Procedure Details * A complete two-dimensional transthoracic echocardiogram was performed (2D, M-mode, Doppler and color flow Doppler). * A saline contrast injection was performed to assess for cardiac shunting. * The injection was performed through an intravenous line in the right arm. * The attending nurse who injected the saline contrast was NICOLASA STREET, YUMIKO. * A total of 20 cc of agitated saline was given. Left Ventricle * The left ventricle is normal in size. * There is mild concentric left ventricular hypertrophy. * Left ventricular systolic function is normal. * Ejection Fraction = 55-60%. * The left ventricular wall motion is normal. Right Ventricle * The right ventricle is normal in size and function. Atria * The left atrial size is normal. * Right atrial size is normal. * The interatrial septum is intact with no evidence for an atrial septal defect. Mitral Valve * The mitral valve is normal in structure and function. * Significant mitral regurgitation is absent. Tricuspid Valve * The tricuspid valve is normal in structure and function. * Significant tricuspid regurgitation is absent. Aortic Valve * The aortic valve is trileaflet. * The aortic valve is normal in structure and function. * There is no significant aortic regurgitation. Pulmonic Valve * The pulmonic valve is not well seen, but is grossly normal. Great Vessels * The aortic root is normal size. * No obvious dissection could be visualized. * The pulmonary artery is normal size. Pericardium/Pleural * There is no pericardial effusion. Great Vessels * Normal inferior vena cava diameter and respiratory variation suggests normal central venous pressure. Left Ventricular Diastolic Function * Grade I diastolic dysfunction, (abnormal relaxation pattern). MMode 2D Measurements and Calculations IVSd 1.4 cm IVSs 1.8 cm LVIDd 4.2 cm LVIDs 3.2 cm LVPWd 1.5 cm LVPWs 1.5 cm IVS/LVPW 0.97 FS 25.3 % EDV(Teich) 80.8 ml ESV(Teich) 40.1 ml EF(Teich) 50.3 % EDV(cubed) 76.7 ml ESV(cubed) 31.9 ml EF(cubed) 58.4 % % IVS thick 23.3 % % LVPW thick 4.3 % LV mass(C)d 242.6 grams LV mass(C)dI 122.3 grams/m\S\2 LV mass(C)s 200.9 grams LV mass(C)sI 101.3 grams/m\S\2 SV(Teich) 40.7 ml SI(Teich) 20.5 ml/m\S\2 SV(cubed) 44.8 ml SI(cubed) 22.6 ml/m\S\2 Ao root diam 3.5 cm Ao root area 9.4 cm\S\2 ACS 2.2 cm LA dimension 3.6 cm LA/Ao 1.1 LVOT diam 2.0 cm LVOT area 3.1 cm\S\2 LVAd ap2 28.3 cm\S\2 LVLd ap2 7.9 cm EDV(MOD-sp2) 80.9 ml EDV(sp2-el) 85.5 ml LVAs ap2 17.5 cm\S\2 LVLs ap2 6.8 cm ESV(MOD-sp2) 39.7 ml ESV(sp2-el) 38.2 ml EF(MOD-sp2) 51.0 % EF(sp2-el) 55.3 % SV(MOD-sp2) 41.3 ml SI(MOD-sp2) 20.8 ml/m\S\2 SV(sp2-el) 47.3 ml SI(sp2-el) 23.8 ml/m\S\2 Doppler Measurements and Calculations MV E max sharon 83.0 cm/sec MV A max sharon 90.6 cm/sec MV E/A 0.92 MV P1/2t max sharon 94.2 cm/sec MV P1/2t 85.1 msec MVA(P1/2t) 2.6 cm\S\2 MV dec slope 324.0 cm/sec\S\2 MV dec time 0.31 sec Ao V2 max 114.2 cm/sec Ao max PG 5.2 mmHg Ao max PG (full) 2.4 mmHg SCOTT(V,A) 2.2 cm\S\2 SCOTT(V,D) 2.2 cm\S\2 LV V1 max PG 2.8 mmHg LV V1 max 83.6 cm/sec PA V2 max 138.9 cm/sec PA max PG 7.7 mmHg TR max sharon 276.6 cm/sec
[2016-10-25 11:53] VITALS: BP 144/78; PULSE 81; TEMP 36.9; O2SAT 96
[2016-10-25 16:08] VITALS: BP 121/69; PULSE 69; TEMP 36.6; O2SAT 96
[2016-10-25 20:06] VITALS: BP 144/80; PULSE 72; TEMP 36.7; O2SAT 96
--- NOTE | 2016-10-25 22:54 | Progress Note ---
Subjective Date of Service: Oct 25, 2016. Subjective Pt evaluation today including: conversation w/ patient, conversation w/ family ( at bedside), physical exam, chart review, lab review, review of studies ( MRI head, MRA head/neck, echo), review of inpatient medication list Pain: denies PO Intake: normal; no dysphagia Voiding: no voiding problems tele normal overnight; no a. fib or flutter feels good denies any neurological complaints - no dysarthria, no dysphagia, no motor weakness, no sensory issues walking is fine today he reports fatigue x 6 months "I just don't have the get up and go energy I used to have" he reports taking once daily iron for at least 1 year, possibly up to 2 years Problem List Medical Problems: (1) Acute CVA (cerebrovascular accident) Status: Acute (2) Chest pain Status: Acute (3) Left rib fracture Status: Acute Review of Systems Constitutional: No fever Respiratory: No shortness of breath, No dyspnea on exertion Cardiac: No chest pain, No orthopnea Abdomen: No pain Objective Vital Signs Date Time Temp Pulse Resp B/P (MAP) Pulse Ox O2 Delivery O2 Flow Rate FiO2 10/25/16 16:08 36.6 69 16 121/69 (86) 96 Room Air 10/25/16 15:30 Room Air 10/25/16 12:00 Room Air 10/25/16 11:53 36.9 81 18 144/78 (100) 96 Room Air 10/25/16 08:35 84 16 153/76 (101) 96 Room Air 10/25/16 08:00 Room Air 10/25/16 04:00 Room Air 10/25/16 03:49 37.0 81 16 153/85 (107) 96 Room Air 10/25/16 00:00 Room Air 10/24/16 23:33 36.9 76 17 130/71 (90) 97 Room Air 10/24/16 20:00 36.9 80 20 162/80 95 Room Air 10/24/16 20:00 Room Air 10/24/16 19:49 36.9 68 18 147/81 98 10/24/16 18:33 68 18 147/81 98 Room Air Physical Exam General Appearance: no apparent distress ENT: pharynx normal Neck: no JVD Respiratory/Chest: lungs clear, no respiratory distress, no accessory muscle use Cardiovascular: regular rate, rhythm, no gallop, no murmur Abdomen: normal bowel sounds, non tender, soft, no organomegaly Extremities: no pedal edema Neurologic/Psychiatric: no motor/sensory deficits, alert, oriented x 3, + pertinent finding (no pronator drift; no dysarthria or aphasia; finger/nose/ finger maneuver without dysmetria ) Laboratory Results Last 24 Hours Test 10/25/16 00:16 10/25/16 07:37 10/25/16 07:42 10/25/16 10:12 Total Creatine Kinase 82 U/L 78 U/L Creatine Kinase MB 1.4 ng/ml 1.6 ng/ml Creatine Kinase MB Ratio 1.7 2.1 Troponin I < 0.015 ng/ml < 0.015 ng/ml White Blood Count 5.75 K/uL Red Blood Count 4.79 M/uL Hemoglobin 14.8 g/dL Hematocrit 44.7 % Mean Corpuscular Volume 93.3 fL Mean Corpuscular Hemoglobin 30.9 pg Mean Corpuscular Hemoglobin Concent 33.1 g/dl Platelet Count 212 K/uL Mean Platelet Volume 9.4 fL Neutrophils (%) (Auto) 64.1 % Lymphocytes (%) (Auto) 26.8 % Monocytes (%) (Auto) 8.2 % Eosinophils (%) (Auto) 0.5 % Basophils (%) (Auto) 0.2 % Neutrophils # (Auto) 3.69 K/uL Lymphocytes # (Auto) 1.54 K/uL Monocytes # (Auto) 0.47 K/uL Eosinophils # (Auto) 0.03 K/uL Basophils # (Auto) 0.01 K/uL RDW Standard Deviation 46.5 fL RDW Coefficient of Variation 13.5 % Immature Granulocyte % (Auto) 0.2 % Immature Granulocyte # (Auto) 0.01 K/uL Prothrombin Time 11.2 SECONDS Prothromb Time International Ratio 1.0 Sodium Level 140 mmol/L Potassium Level 3.8 mmol/L Chloride Level 107 mmol/L Carbon Dioxide Level 25 mmol/L Anion Gap 8.0 mmol/L Blood Urea Nitrogen 16 mg/dl Creatinine 1.30 mg/dl Est Creatinine Clear Calc Drug Dose 47.6 ml/min Estimated GFR () 61.0 Estimated GFR (Non- 52.6 BUN/Creatinine Ratio 12.6 Random Glucose 93 mg/dl Calcium Level 9.2 mg/dl Triglycerides Level 106 mg/dl Cholesterol Level 172 mg/dl HDL Cholesterol 53 mg/dl LDL Cholesterol, Calculated 98 mg/dl VLDL Cholesterol, Calculated 21 mg/dl Cholesterol/HDL Ratio 3.2 Iron Level 98 mcg/dl Total Iron Binding Capacity 281 mcg/dl Transferrin 220 mg/dl Transferrin % Saturation 32 % Ferritin 26.2 ng/ml Assessment and Plan 75yo male with: 1. acute right-sided lentiform nucleus stroke - appreciate neuro consultation. Agree w/ aspirin for secondary stroke prevention. Increase statin dose to "high intensity" level (ie 40mg or higher). Likely that the etiology of this stroke was thrombotic in origin. Carotids were clean on MRA. ECHO w/o source of thrombus. Tele normal. PT, OT, speech have all cleared for home. 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 He has no symptoms of a posterior circulation issue (visual deficits, near- syncope, severe ataxia, etc). Aggressive risk factor modification (use of statin for lipids, etc). 3. 3mm aneurysm - outpatient MRA in 1 year to assess stability. 4. iron def - despite taking iron supplement for 1-2 years his ferritin level is <30. This argues that he has a low iron supply and could have ongoing occult GI bleeding. He has had overt GI bleeding in the past requiring 2 upper endoscopies. Will recommend he f/u with GI as an outpatient for consideration of repeat endoscopies. Increase Fe supplement to BID dosing. 5. DVT proph - lovenox 40mg daily. 6. fatigue - recent sed rate, b12, tsh, lyme's, etc all normal. Cause? Has had no weight loss; denies anorexia. Related to low iron stores? Will need outpatient follow-up. 7. h/o upper GI bleeding - PPI. 8. HTN - allow some element of permissiveness at this time. updated at bedside anticipate d/c in AM Discharge planning: home
[2016-10-25 23:44] VITALS: BP 163/80; PULSE 70; TEMP 37; O2SAT 97
[2016-10-26 03:55] VITALS: BP 126/71; PULSE 66; TEMP 36.9; O2SAT 95
[2016-10-26 06:54] VITALS: BP 151/83; PULSE 79; TEMP 36.6; O2SAT 97
[2016-10-26 07:07] LABS: BASO % 0.1 %; BASO ABS # 0.01 K/uL (0-0.2); COMPLETE YES; EOS % 0.6 %; IG% 0.3 %; LYMPH % 22.8 %; LYMPH ABS # 1.59 K/uL (1.2-3.4); MEAN CORPUSCULAR HEMOGLOBIN 31.5 pg (25-34); MEAN CORPUSCULAR HGB CONC 33.6 g/dl (32-36); MEAN PLATELET VOLUME 9.6 fL (7.4-10.4); MONO % 10.9 %; NEUT % 65.3 %; PLATELET COUNT 191 K/uL (130-400); RED BLOOD COUNT 4.47 M/uL (4.7-6.1); WHITE BLOOD COUNT 6.96 K/uL (4.8-10.8)
[2016-10-26 07:16] LABS: PROTHROMBIN TIME (PATIENT) 10.6 SECONDS (9.0-12.0)
[2016-10-26 07:35] LABS: BUN/CREATININE RATIO 15.5 (10-20); CALCIUM 8.8 mg/dl (8.5-10.1); CREATININE 1.5 mg/dl (0.60-1.40); POTASSIUM 3.7 mmol/L (3.5-5.1)
[2016-10-26] MEDS ORDERED: ASPEC81 PO (08:19)
[2016-10-26] MEDS ORDERED: LPT/40 PO (08:19)
[2016-10-26] MEDS ORDERED: FERR325T PO (08:19)
[2016-10-26] MEDS: CEROVITE ADV FORMULA TAB PO SCH (08:25)
[2016-10-26] MEDS: FERROUS SULFATE 325 MG TAB PO SCH (08:25)
[2016-10-26] MEDS: AMLODIPINE BESYLATE 5 MG TAB PO SCH (08:25)
[2016-10-26] MEDS: ASPIRIN 81 MG ECTAB PO SCH (08:25)
[2016-10-26] MEDS: PANTOprazole SOD 40 MG TAB PO SCH (08:25)
[2016-10-26] MEDS: ASCORBIC ACID 500 MG TAB PO SCH (08:25)
[2016-10-26] MEDS: ENOXAPARIN 40 MG/0.4 ML SYR SQ SCH ×2 (08:26→08:35)
--- NOTE | 2016-10-26 08:30 | Discharge Instructions ---
Discharge Instructions Date of Service Oct 26, 2016. Admission Reason for Admission: right sided stroke with resulting left-sided weakness Discharge Discharge Diagnosis / Problem: stroke Discharge Goals Goal(s): Learn about illness, Diagnostic testing, Therapeutic intervention Activity Recommendations Activity Limitations: resume your previous activity . Instructions / Follow-Up Instructions / Follow-Up From Dr. Beck: 1. Risk Factors for Stroke: You can reduce your chances of stroke by working with your medical provider to adopt a healthy lifestyle. Some specific ways to lower your chance of stroke are: * If you are a smoker, now is the time to stop smoking cigarettes * If you are diabetic, improve the control of your blood sugars * Avoid excessive amounts of alcohol * Control high blood pressure * Lose weight if you are overweight * Be sure to lead an active lifestyle * Eat a healthy diet low in salt, cholesterol and fat You should know about other risk factors for stroke that you are unable to control. These include: * Age 55 years or older * Male gender * Certain racial groups: , or / * Family History of Stroke, Mini stroke or Heart Attack * Sickle Cell Disease 2. Cholesterol - * please INCREASE your lipitor to 40mg once daily; start this TOMORROW. 3. Prevention of another stroke - * take ASPIRIN 81mg once daily * control your blood pressure; check your blood pressure a few times a week at your home; recommend that if you don't have a BP cuff please purchase one to monitor your numbers at the house * take lipitor for cholesterol 4. Small 3mm aneurysm - * you will need a repeat MRA of the brain in 1 year; Dr. Hernandes's office can coordinate this 5. Basilar artery stenosis - * this is an artery on the back of the brain * the artery has plaque build-up causing the blood flow to be sluggish * Dr. Hernandes suggested a follow-up with a specialist at [facility] to see if anything needs to be done about this * Dr. Hernandes can coordinate this follow-up appointment * continue your lipitor and blood pressure medication along with aspirin; eat a healthy, low fat/low cholesterol diet 6. Low Iron - * Your ferritin level - which is a marker of how much iron storage you have in your body - was low at 26 * This was surprising since you had been taking iron for the last 1-2 years * I would suggest INCREASING your iron supplement to TWICE A DAY * Take the iron with a glass of orange juice to help absorb it better * It also helps to take the iron at least 1-2 hours away from meals so that the iron is absorbed better * Please see Dr. Raymundo from [facility] as he may want to repeat your EGD and/ or colonoscopy * This could be contributing to your fatigue * If scopes are done and found to be OK then consider a sleep study due to your chronic snoring 7. Your stroke - fortunately - was small and hopefully you will make a complete recovery from this. Please go to [facility] for therapy as an outpatient. Please give the prescription to them at the time of your first appointment. 8. Follow-up appointments - * See Dr. Riddle this Monday if possible * Please have her recheck your "BMP" (kidney level) * I will have our nurse navigator/social sciences lecturer try to arrange follow-ups with Dr. Raymundo from [facility] and Dr. Hernandes from [facility] 9. Return to [facility] if - * you develop worsening left-sided weakness * you develop slurred speech, numbness/tingling, difficulty swallowing, etc * you develop any new weakness on the right side Current Hospital Diet Patient's current hospital diet: Regular Diet Discharge Diet Recommended Diet: AHA Diet (Heart Healthy) Procedures Procedures Performed: MRI brain showing a very small stroke on the right side deep within the brain. MRA of the brain and neck (looks at blood vessels) - 1. small aneurysm of one of the vessels (3mm in size). 2. basilar artery stenosis/plaque build-up. 3. normal carotid arteries. echocardiogram - normal heart function and no blood clot in the heart. Pending Studies Studies pending at discharge: yes List of pending studies: thiamine level (vitamin B1) Laboratory Results Hemoglobin A1c Test 10/24/16 15:35 Range/Units Estimated Average Glucose 114 mg/dl Hemoglobin A1c 5.6 4.5-5.6 % Lipid Panel Test 10/25/16 07:42 Range/Units Triglycerides Level 106 0-150 mg/dl Cholesterol Level 172 0-200 mg/dl HDL Cholesterol 53 mg/dl Cholesterol/HDL Ratio 3.2 LDL Cholesterol, Calculated 98 mg/dl Medical Emergencies . Who to Call and When: Medical Emergencies: Call 911 immediately if you experience any of the following warning signs and symptoms of Stroke: * Sudden numbness or weakness of the face, arm or leg, especially on one side of the body * Sudden confusion, trouble speaking or understanding * Sudden trouble seeing in one or both eyes * Sudden trouble walking, dizziness, loss of balance or coordination * Sudden severe headache with no cause Do not delay calling 911 if you experience any warning signs or symptoms of a stroke. Delay in seeking medical attention may affect what treatments can be given to you. . Non-Emergent Contact Non-Emergency issues call your: Primary Care Provider Call Non-Emergent contact if: you have any medication questions . . "Provider Documentation" section prepared by Roly Beck. . Stroke Core Measures Reason no t-PA for Stroke: Treatment not indicated Reason no antithrom by day 2: Treatment provided - N/A Reason no antithrom at D/C: Treatment provided - N/A Reason no statin at D/C: Treatment provided - N/A Reason no anticoag w/a fib: Treatment not indicated VTE Core Measure Inpt VTE Proph given/why not?: Enoxaparin (Lovenox)SQ, SCD's (a CT)
[2016-10-26] MEDS ORDERED: ATORVASTATIN 40 MG TAB PO SCH (09:00)
--- NOTE | 2016-10-26 09:14 | Neurology Progress Notes ---
Neurology Progress Note Date of Service Oct 26, 2016. Subjective Follow-up for stroke The patient does not have any new neurological complaints at this time. He is able to walk without assistance and has done well with his PT/OT and speech evaluations and has been cleared for discharge. Patient's family at bedside this morning as well. 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 I explained that thrombectomy and revascularization of a chronically thrombosed basilar artery and a stable patient is generally not recommended. 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 Objective Date Time Temp Pulse Resp B/P (MAP) Pulse Ox O2 Delivery O2 Flow Rate FiO2 10/26/16 06:54 36.6 79 17 151/83 (105) 97 Room Air 10/26/16 04:00 Room Air 10/26/16 03:55 36.9 66 17 126/71 (89) 95 Room Air 10/26/16 00:00 Room Air 10/25/16 23:44 37.0 70 21 163/80 (107) 97 Room Air 10/25/16 20:06 36.7 72 18 144/80 (101) 96 Room Air 10/25/16 20:00 Room Air 10/25/16 16:08 36.6 69 16 121/69 (86) 96 Room Air 10/25/16 15:30 Room Air 10/25/16 12:00 Room Air 10/25/16 11:53 36.9 81 18 144/78 (100) 96 Room Air Last 24 Hours Test 10/25/16 10:12 10/26/16 06:45 10/26/16 06:49 Iron Level 98 mcg/dl Total Iron Binding Capacity 281 mcg/dl Transferrin 220 mg/dl Transferrin % Saturation 32 % Ferritin 26.2 ng/ml White Blood Count 6.96 K/uL Red Blood Count 4.47 M/uL Hemoglobin 14.1 g/dL Hematocrit 42.0 % Mean Corpuscular Volume 94.0 fL Mean Corpuscular Hemoglobin 31.5 pg Mean Corpuscular Hemoglobin Concent 33.6 g/dl Platelet Count 191 K/uL Mean Platelet Volume 9.6 fL Neutrophils (%) (Auto) 65.3 % Lymphocytes (%) (Auto) 22.8 % Monocytes (%) (Auto) 10.9 % Eosinophils (%) (Auto) 0.6 % Basophils (%) (Auto) 0.1 % Neutrophils # (Auto) 4.54 K/uL Lymphocytes # (Auto) 1.59 K/uL Monocytes # (Auto) 0.76 K/uL Eosinophils # (Auto) 0.04 K/uL Basophils # (Auto) 0.01 K/uL RDW Standard Deviation 46.8 fL RDW Coefficient of Variation 13.6 % Immature Granulocyte % (Auto) 0.3 % Immature Granulocyte # (Auto) 0.02 K/uL Prothrombin Time 10.6 SECONDS Prothromb Time International Ratio 1.0 Sodium Level 138 mmol/L Potassium Level 3.7 mmol/L Chloride Level 105 mmol/L Carbon Dioxide Level 25 mmol/L Anion Gap 8.0 mmol/L Blood Urea Nitrogen 23 mg/dl Creatinine 1.50 mg/dl Est Creatinine Clear Calc Drug Dose 41.3 ml/min Estimated GFR () 51.3 Estimated GFR (Non- 44.3 BUN/Creatinine Ratio 15.5 Random Glucose 98 mg/dl Calcium Level 8.8 mg/dl Exam: The patient is alert and fully oriented. Attention and concentration normal. Exhibits a normal spontaneous speech pattern. He ambulates freely in his hospital room and does not have signs of a significant left hemiparesis or ataxia at this time. Current Inpatient Medications Medications (Trade) Dose Ordered Sig/Arturo Route Start Time Stop Time Status Last Admin Dose Admin Aspirin (Ecotrin Tab) 81 mg QAM PO 10/25/16 09:00 11/24/16 08:59 10/26/16 08:25 81 MG Miscellaneous Information (Pharmacist Discharge Med Rec Consult) 1 ea UD PRN N/A 10/24/16 18:00 11/23/16 17:59 Amlodipine Besylate (Norvasc Tab) 10 mg DAILY PO 10/25/16 09:00 11/24/16 08:59 10/26/16 08:25 10 MG Multivitamins/ Minerals (Multivitamin W/ Minerals Tab) 1 tab DAILY PO 10/25/16 09:00 11/24/16 08:59 10/26/16 08:25 1 TAB Pantoprazole Sodium (Protonix Tab) 40 mg DAILY PO 10/25/16 09:00 11/24/16 08:59 10/26/16 08:25 40 MG Ascorbic Acid (Vitamin C Tab) 1,000 mg DAILY PO 10/25/16 09:00 11/24/16 08:59 10/26/16 08:25 1,000 MG Ferrous Sulfate (Feosol Tab) 325 mg DAILY PO 10/25/16 09:00 11/24/16 08:59 10/26/16 08:25 325 MG Enoxaparin Sodium (Lovenox Inj) 40 mg QAM SQ 10/25/16 09:00 11/24/16 08:59 10/25/16 09:43 40 MG Atorvastatin Calcium (Lipitor Tab) 40 mg DAILY PO 10/26/16 09:00 11/24/16 08:59 10/26/16 08:25 40 MG Impression Acute ischemic stroke involving the right lentiform nucleus resulting in a very mild left hemiparesis and ataxic gait pattern which appears to be stable to improved and does not significantly affect his functioning. 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 Plan Patient should remain on daily low-dose aspirin. Follow-up in outpatient clinic with Kylie Raymundo PA-C/Dr. Hoff. A follow-up MRA or CT angiogram of the head in 1 year to ensure stability of the incidentally discovered 3 mm supraclinoid left ICA aneurysm should be obtained. An outpatient referral to a stroke specialist at [facility] would also be reasonable. No further recommendations at this time.
--- NOTE | 2016-10-26 09:14 | Pharmacy Progress Note ---
Pharmacist Stroke Counseling Date of Service Oct 26, 2016. Scope Pharmacy has been consulted to provide medication discharge counseling for this patient admitted with ischemic stroke as per the Pharmacist Discharge Counseling for Stroke Patients Protocol. Medications on Discharge New Medications: Aspirin (Aspirin EC Low Dose) 81 Mg Ectab 81 MG PO QAM, #90 TABS 3 Refills for prevention of stroke Changed Medications: Atorvastatin (Lipitor) 40 Mg Tab 40 MG PO DAILY, #30 TAB 11 Refills (Changed from: Atorvastatin (Atorvastatin Calcium) 10 Mg Tab 1 Tab PO DAILY) Ferrous Sulfate (Ferrous Sulfate) 325 Mg Tab 325 MG PO BID, #60 TABS 2 Refills (Changed from: DAILY; Refills: ) Continued Medications: Amlodipine (Norvasc) 10 Mg Tab 10 MG PO DAILY, TAB Ascorbic Acid (Ascorbic Acid) 1,000 Mg Tab 1000 MG PO DAILY Multivitamins/Minerals (Mvi With Minerals) Tab 1 TAB PO DAILY, TAB Pantoprazole (Pantoprazole Sodium) 40 Mg Tab 1 TAB PO DAILY, #90 Action The above medications, specifically ones for stroke treatment/prophylaxis, have been reviewed in detail with the patient and/or patient applications sales representative(s) prior to discharge. This includes indication, common adverse reactions, drug interactions, and medication administration. Medication counseling has been employed using the teach-back method to ensure understanding. Outcome The patient and/or patient applications sales representative(s) have demonstrated understanding of the medications. Please note, they are aware that the pharmacist will call them within 72 hours post-discharge to confirm that the appropriate medications are being taken and answer any further medication related questions the patient might have at that time. I spoke extensively with the patient and his regarding his medication changes. The patient is very knowledgeable and friendly. He was on aspirin 81 mg PO daily but was taken off it. I explained that there are different uses for aspirin and its purpose in secondary stroke prevention. I explained the iron can cause constipation and black stools. I also explained the importance of Lipitor and why it was increased. He stated that he has never had any problems with medications before this time. He believes that he should be okay. He takes all pills in the morning and I gave him a pillbox. He stated that he has many appointments on Monday so he prefers to be called on Monday.This is outside the 72 hour post-discharge timeframe but I believe this is appropriate per patient request. Contact information Individual to be contacted: patient Relationship to patient (if applicable): N/A Phone number: [phone] (cell: [phone]) Thank you for allowing pharmacy to be involved in the care of this patient. Please call [phone] with any additional questions
[2016-10-26 09:26] VITALS: BP 151/83; PULSE 79; TEMP 36.6; O2SAT 97
--- NOTE | 2016-10-27 18:38 | Discharge Summary ---
Discharge Summary Date of Service Oct 27, 2016. Discharge Summary Admission Date: Oct 24, 2016 at 18:45 Discharge Date: Oct 26, 2016 Discharge Disposition: Home Principal Diagnosis: acute right-sided lenticular nucleus stroke Problems/Secondary Diagnoses: 1. hypertension 2. hyperlipidemia 3. 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 iron deficiency - ferritin level 26 7. CKD stage 2 8. chronic fatigue - etiology uncertain 9. h/o prostate cancer Procedures: 1. MRA neck: IMPRESSION: 1. 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 This occlusion is age indeterminate although probably chronic. 2. No significant stenosis within the bilateral common carotid and internal carotid arteries. 2. MRA brain: IMPRESSION: 1. 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 This accounts for the abnormality on MRI of the brain from earlier today. This occlusion is age indeterminate although probably chronic. 2. Minimal flow identified within the bilateral posterior cerebral arteries which are suboptimally assessed on this exam due to artifact. These vessels are likely patent although occlusion would be difficult to exclude on this exam. 3. 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 3. echocardiogram: * -- Conclusions -- * Compared with 09/08/14 study, no significant change. * The left ventricle is normal in size. * Left ventricular systolic function is normal. * Ejection Fraction = 55-60%. * The left ventricular wall motion is normal. * There is mild concentric left ventricular hypertrophy. * Grade I diastolic dysfunction, (abnormal relaxation pattern). * No significant valvular disease. Consultations: PT, OT, speech neurology - Gael Hernandes MD Medication Reconciliation New Medications: Aspirin (Aspirin EC Low Dose) 81 Mg Ectab 81 MG PO QAM, #90 TABS 3 Refills for prevention of stroke Changed Medications: Atorvastatin (Lipitor) 40 Mg Tab 40 MG PO DAILY, #30 TAB 11 Refills (Changed from: Atorvastatin (Atorvastatin Calcium) 10 Mg Tab 1 Tab PO DAILY) Ferrous Sulfate (Ferrous Sulfate) 325 Mg Tab 325 MG PO BID, #60 TABS 2 Refills (Changed from: DAILY; Refills: ) Continued Medications: Amlodipine (Norvasc) 10 Mg Tab 10 MG PO DAILY, TAB Ascorbic Acid (Ascorbic Acid) 1,000 Mg Tab 1000 MG PO DAILY Multivitamins/Minerals (Mvi With Minerals) Tab 1 TAB PO DAILY, TAB Pantoprazole (Pantoprazole Sodium) 40 Mg Tab 1 TAB PO DAILY, #90 Referrals At Discharge Follow up Referrals: Order Dispatcher Chief Referral - First Available with Mk Raymundo D.O. Neurologist Referral - First Available with Gael Hernandes M.D. Discharge Exam Physical Exam: General Appearance: WD/WN, no apparent distress ENT: pharynx normal Neck: no JVD Respiratory/Chest: lungs clear, no respiratory distress, no accessory muscle use Cardiovascular: regular rate, rhythm, no gallop, no murmur, normal peripheral pulses Abdomen / GI: normal bowel sounds, non tender, soft, no organomegaly Extremities: no pedal edema Neurologic/Psychiatric: no motor/sensory deficits, alert, normal mood/affect , normal reflexes, oriented x 3, + pertinent finding (no facial droop; speech fluent ) Skin: no rash Hospital Course HISTORY OF PRESENT ILLNESS: The patient is a 75-year-old male referred to the emergency department by Dr. Hernandes his neurologist after an MRI showed a right acute lacunar infarct in the lentiform nucleus. Family has noted a worsening in his general mentation over the past few days, and he has noticed more of an issue with imbalance. The MRI was initially performed due to the patient's history of falling while walking in June, and some persistent fatigue since that time. The patient has had a normal appetite, and no difficulty with speech or with swallowing. The patient has a history of prostate cancer a few years ago, and was taken off aspirin due to hematuria at that time. His aspirin was not restarted after that incident. HOSPITAL COURSE: 1. acute right-sided lentiform nucleus stroke - the patient underwent a stroke work-up consisting of MRA head, MRA neck, and echocardiogram. 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 There was an incidental finding of a 3mm aneurysm as well. Echocardiogram was normal and without source of embolus. Telemetry was normal his entire stay. The likely etiology of his stroke was that of local thrombosis. He was seen in consult by Dr. Gael Hernandes, neurology, who recommended restarting of 81mg of aspirin daily for secondary stroke prevention. His lipitor was increased from 10mg to 40mg once daily. He was seen by PT/OT/speech therapies all of whom felt he could safely return home as his deficits were minimal. He will see Dr. Hernandes or one of his associates within 1 month of discharge. Outpatient PT/OT were recommended for balance/gait training. 2. stenotic basilar artery - fortunately the vessel has distal reconstitution on MRA. He has no symptoms of a posterior circulation issue (visual deficits, near- syncope, severe ataxia, etc). Aggressive risk factor modification (use of statin for lipids, etc). He will be referred to a stroke specialist after discharge to reassess this vessel. 3. 3mm aneurysm - outpatient MRA in 1 year to assess stability. 4. iron deficiency - despite taking iron supplements for 1-2 years his ferritin level was only 26. This argues that he has a low iron supply and could have ongoing occult GI bleeding. He has had overt GI bleeding in the past requiring 2 upper endoscopies. Recommended that he follow-up with GI as an outpatient for consideration of repeat endoscopies. I asked that he increase his iron supplement to BID dosing after discharge. 5. fatigue - recent sed rate, vitamin b12, tsh, lyme's, etc were all normal. The patient reported no weight loss, anorexia, fevers, etc. I am unclear if the low ferritin level could be reflective of a GI process leading to his fatigue. If his GI work-up is negative consider a sleep study. . 6. HTN - BP control was acceptable while hospitalized. He will continue on amlodipine. Total Time Spent: Greater than 30 minutes This includes examination of the patient, discharge planning, medication reconciliation, and communication with other providers. Discharge Instructions Please refer to the electronic Patient Visit Report (Discharge Instructions) for additional information. Follow-Up 1. see Dr. Cruz, PCP, within 2-3 days; recommend repeat BMP at that time 2. see Dr. Gael Hernandes or his associates within [address] Mk Raymundo, GI, first available appointment Additional Copies To Mk Raymundo D.O.; Chanel Cruz M.D.; Gael Hernandes M.D.
--- NOTE | 2016-10-31 14:05 | Pharmacy Progress Note ---
Pharmacist Post D/C Phone Note Medications Dose Route/Sig Max Daily Dose Days Date Category Dose Instructions Aspirin EC Low Dose (Aspirin) 81 Mg Ectab 81 Mg PO QAM 10/26/16 Rx for prevention of stroke Lipitor (Atorvastatin) 40 Mg Tab 40 Mg PO DAILY 10/26/16 Rx Ferrous Sulfate 325 Mg Tab 325 Mg PO BID 10/26/16 Rx Ascorbic Acid 1,000 Mg Tab 1,000 Mg PO DAILY 10/24/16 Reported Pantoprazole Sodium (Pantoprazole) 40 Mg Tab 1 Tab PO DAILY 10/24/16 Reported Mvi With Minerals (Multivitamins/Minerals) Tab 1 Tab PO DAILY 09/07/14 Reported Norvasc (Amlodipine Besylate) 10 Mg Tab 10 Mg PO DAILY 09/07/14 Reported Date of phone call: Oct 31, 2016. Individual with whom pharmacist spoke to: Ceasar The following questions were reviewed during the phone call with responses listed below each: Can you tell me the medications that you are currently taking as well as when and how you take each medication? - The patient was able to tell me all of his medications that he is currently taking. He was familiar with the names of them and also was familiar with what changes were made to his medications in the hospital. When have you missed any doses of your medications? - He informed me that he keeps the pillbox that we gave him on discharge to organize his medications and that he has not missed a dose. What side effects are you having from your medications? - He does not feel that he is experiencing any side effects from his medications. He just went to his PCP this morning and there were no changes made. What questions do you have about your medications? - He did not have any questions and seems to be doing very well with his medications. What problems are you having obtaining your medications? - He gets his medications through mail order and does not have any issues with getting his medications. When is your next appointment with your primary care doctor? - He just saw his PCP today and is scheduled to see them again in 2 months. Additional comments: - Patient was very pleasant to talk with and seemed very knowledgeable with his medications. As per the Pharmacist Discharge Counseling for Stroke Patients Protocol, this phone call has been completed within 72 hours of discharge. Thank you for allowing us to be involved in the care of this patient. Thank you for allowing us to be involved in the care of this patient.
== END 2016-10-26 10:00 | disposition home or self-care (01) | DRG 65 ==
LOC: C.EDB 15:14 → C.2T 18:45 → ENRESERV 19:24
PROVIDERS: ADMIT Hospitalist; ATTEND Internal Medicine
DX: I63.8 Other cerebral infarction (principal); G81.94 Hemiplegia, unspecified affecting left nondominant side; I65.1 Occlusion and stenosis of basilar artery; I66.23 Occlusion and stenosis of bilateral posterior cerebral arteries; I67.1 Cerebral aneurysm, nonruptured; R26.0 Ataxic gait; E61.1 Iron deficiency; R53.83 Other fatigue; I10 Essential (primary) hypertension; E78.5 Hyperlipidemia, unspecified; K21.9 Gastro-esophageal reflux disease without esophagitis; Z91.81 History of falling; Z79.899 Other long term (current) drug therapy; R41.3 Other amnesia; R26.89 Other abnormalities of gait and mobility

== ENCOUNTER → 2016-10-24 | Outpatient (CLI) | payer OTHER ==
[~2016-10-24] MED LIST changes: +GADAVIST IV PRN
--- NOTE | 2016-10-24 13:30 | DIAGNOSTIC IMAGING REPORT ---
BRAIN COMBO HISTORY: 75-year-old male presents with acute lightheadedness and occipital headache. No known head injury. History of prostate cancer years ago. COMPARISON: None available. TECHNIQUE: Multiplanar multisequence MRI of the brain was obtained both with and without the use of contrast. 8 mL Gadavist was utilized. FINDINGS: There is a 4 x 4 mm focus of restricted diffusion within the superior aspect of the right lentiform nucleus (image 13 of the axial series) without significantly decreased signal on ADC map. There is slightly increased PD and FLAIR signal within this distribution. There is focally increased PD and diffusion signal with loss of the normal flow void within the basilar artery which is slightly ectatic (for example best seen on image 9 of the axial series). There is at least moderate cerebral atrophy. Corpus callosum, brainstem, optic chiasm and pituitary gland appear unremarkable on the sagittal T1 series. No cerebellar tonsillar herniation. Uncovertebral spurring is seen within the imaged cervical spine. Multifocal areas of T2/FLAIR prolongation are noted within the periventricular and deep white matter structures bilaterally. There is generally symmetric moderate enlargement of the lateral ventricles, likely secondary to ex vacuo changes. There is no intracranial mass, midline shift, abnormal extra-axial collection or intracranial hemorrhage identified. Increased T1 signal of the left vertebral artery seen on image 1 of the axial T1 series is noted and may be artifactual. No abnormal enhancement. There is mild mucosal thickening of the ethmoid air cells. Orbits appear unremarkable. IMPRESSION: 1. 4 x 4 mm focus of restricted diffusion within the superior aspect of the right lentiform nucleus suggest acute lacunar infarction. No associated hemorrhage or significant edema. 2. Focally increased signal within the distal basilar artery as described above may reflect thrombus or slow flow. This finding could be further evaluated with MRA or CTA. 3. Background moderate cerebral atrophy with ex vacuo ventriculomegaly and moderate chronic microischemic changes. Electronically signed by: Lamine Anguiano 10/24/2016 1:29 PM Dictated Date/Time: 10/24/2016 12:51 PM
== END | disposition home or self-care (01) ==
LOC: C.MRI 11:45
PROVIDERS: ATTEND Physician Assistant
DX: R41.3 Other amnesia (principal); R26.89 Other abnormalities of gait and mobility

== ENCOUNTER → 2017-05-26 | Outpatient (CLI) | payer OTHER ==
[~2017-05-26] MED LIST changes: +ASCO100061 PO; +ASPEC81 PO; -ESCI1TAB6 PO; +FERR1TAB62 PO; -FERR325T PO; -FERR325T51 PO; +LPT/40 PO; -PANT40TA PO; +PANT40TA2 PO; -SELE200T9 PO
--- NOTE | 2017-05-26 09:16 | DIAGNOSTIC IMAGING REPORT ---
ABDOMINAL ULTRASOUND, RIGHT UPPER QUADRANT HISTORY: Lower back pain. Generalized abdominal pain.. COMPARISON: None. FINDINGS: Pancreas: Obscured by overlying bowel gas. Liver: Unremarkable. Gallbladder: No gallbladder wall thickening. No gallstones. There may be a small amount of gallbladder sludge versus artifact. CBD: 5 mm. Right kidney: 11.1 cm in length. There is moderate cortical renal thinning. There is a 1.1 cm peripelvic cyst IMPRESSION: 1. No gallstones. No gallbladder wall thickening. There may be a small amount of gallbladder sludge versus artifact. 2. Normal caliber common bile duct. 3. The pancreas is obscured by overlying bowel gas. 4. Moderate cortical renal thinning. No hydronephrosis. Electronically signed by: Iron Aquino M.D. 05/26/2017 9:14 AM Dictated Date/Time: 05/26/2017 9:11 AM
== END | disposition home or self-care (01) ==
LOC: C.ULTR 07:42
PROVIDERS: ATTEND Family Medicine
DX: R10.9 Unspecified abdominal pain (principal); M54.5 Low back pain; N28.9 Disorder of kidney and ureter, unspecified

== ENCOUNTER → 2017-08-17 | Outpatient (CLI) | payer OTHER ==
[~2017-08-17] MED LIST changes: -ASPEC81 PO; +ASPI-320 PO
--- NOTE | 2017-08-17 16:51 | EEG Procedure Note ---
EEG Procedure Note Date of Service Aug 17, 2017. Start / End Times Start Time: 1:57 PM End Time: 2:17 PM Referring Physician Chanel Riddle History This is a 76-year-old male with syncope. EEG for further evaluation of possible seizure etiology. Home Medication List Scheduled Amlodipine (Norvasc), 10 MG PO DAILY Ascorbic Acid (Ascorbic Acid), 1,000 MG PO DAILY Aspirin (Aspirin EC Low Dose), 81 MG PO QAM Atorvastatin (Lipitor), 40 MG PO DAILY Ferrous Sulfate (Ferrous Sulfate), 325 MG PO BID Multivitamins/Minerals (Mvi With Minerals), 1 TAB PO DAILY Pantoprazole (Pantoprazole Sodium), 1 TAB PO DAILY Description This is a 21 electrode EEG with a single channel dedicated to limited EKG. The electrodes were placed in accordance with the International 10-20 system. At the start of the recording the patient was in an awake state. Background was well organized and composed of symmetric mixed alpha and beta frequencies. There was a symmetric well-formed moderate amplitude 8-9Hz posterior dominant rhythm that was reactive to eye opening and closure. Hyperventilation was not done. Intermittent photic stimulation at various frequencies produced no abnormalities. Drowsiness was indicated by loss of muscle artifact and slowing of the background rhythm. There was no sleep transients. Interpretation This is a normal awake and drowsy routine EEG. There was no electrographic seizures or epileptiform discharges. Clinical Correlation A normal EEG does not rule out epilepsy if there is a strong clinical suspicion.
== END | disposition home or self-care (01) ==
LOC: C.NEUR 13:34
PROVIDERS: ATTEND Family Medicine
DX: R55 Syncope and collapse (principal)

== ENCOUNTER → 2017-09-04 | Outpatient (CLI) | payer OTHER ==
--- NOTE | 2017-09-04 11:04 | DIAGNOSTIC IMAGING REPORT ---
CHEST 2 VIEWS ROUTINE CLINICAL HISTORY: Cough. COMPARISON STUDY: Chest CT November 12, 2015 and chest radiograph October 24, 2016. FINDINGS: Lung volumes are normal. No pneumothorax or pleural effusion is noted. Linear bibasilar opacities suggest atelectasis or scarring. Mild reticulonodular interstitial thickening within the left lung is noted. Mild cardiomegaly is unchanged. Subpleural left lower lobe opacity favors atelectasis. IMPRESSION: Mild left lung reticulonodular interstitial thickening which favors a mild infectious process such as bronchiolitis. Post treatment radiographs to ensure resolution are recommended. Electronically signed by: Angel Mann M.D. 09/04/2017 11:02 AM Dictated Date/Time: 09/04/2017 10:59 AM
== END | disposition home or self-care (01) ==
LOC: C.RAD 10:30
PROVIDERS: ATTEND Family Medicine
DX: R05 Cough (principal)

== ENCOUNTER → 2017-09-12 | Outpatient (CLI) | payer OTHER ==
[2017-09-12 13:38] LABS: BLOOD UREA NITROGEN 21 mg/dl (7-18); CREATININE 1.41 mg/dl (0.60-1.40)
== END | disposition home or self-care (01) ==
LOC: C.LABPBG 10:33
PROVIDERS: ATTEND Psychiatry & Neurology Neurology
DX: I65.1 Occlusion and stenosis of basilar artery (principal); R29.90 Unspecified symptoms and signs involving the nervous system

== ENCOUNTER → 2017-11-10 | Outpatient (CLI) | payer OTHER ==
[~2017-11-10] MED LIST changes: -AMLO-114 PO; +AMLO10TA3 PO
--- NOTE | 2017-11-10 11:46 | DIAGNOSTIC IMAGING REPORT ---
MRA HEAD WITHOUT CONTRAST CLINICAL HISTORY: 76 years-old Male presenting with follow-up abnormal MRA. TECHNIQUE: MR angiography of the head was performed without the use of intravenous contrast using 3-D [id number] technique. 3-D volumetric and/or maximum intensity projection (MIP) images were subsequently reconstructed for review. IV contrast: None. COMPARISON: MR brain from 09/19/2017 and MRA from 10/24/2016. FINDINGS: Anterior circulation: Tortuosity of the internal carotid arteries proximal to the skull base may suggest a history of chronic hypertension. Intracranial portions of the internal carotid arteries patent to the level of the termini. Stable 3 mm inferiorly and posteriorly directed aneurysm at the level of the supraclinoid left ICA (series 4 image 147). 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 Anterior and middle cerebral arteries patent. Anterior communicating artery patent. Posterior circulation: Left dominant vertebral artery. Intradural portions of the vertebral arteries grossly patent though signal loss is evident at the skull base likely on a technical basis. Posterior inferior cerebellar arteries poorly evaluated. Basilar artery diminutive and patent proximally though likely occluded or severely stenotic in the mid to distal portion. Anterior inferior cerebellar arteries poorly visualized. Superior cerebellar arteries poorly visualized and possibly occluded as on prior exam. Posterior cerebral arteries demonstrate poor flow related enhancement and may be partially reconstituted via the belkofski posterior communicating arteries. Posterior communicating arteries patent. IMPRESSION: 1. Stable findings of diminutive anterior circulation aneurysms and occlusions or severe stenoses in the posterior circulation as detailed above. Patency of the right vertebral artery, mid to distal basilar artery, bilateral superior cerebellar arteries, and bilateral posterior cerebral arteries would be better assessed with CTA in the future. Electronically signed by: Darryn Gibbs M.D. 11/10/2017 11:45 AM Dictated Date/Time: 11/10/2017 11:35 AM
== END | disposition home or self-care (01) ==
LOC: C.MRIBC 10:34
PROVIDERS: ATTEND Physician Assistant
DX: I67.1 Cerebral aneurysm, nonruptured (principal)

== ENCOUNTER → 2017-12-14 | Outpatient (CLI) | payer OTHER ==
[2017-12-14 13:01] LABS: BASO % 0.2 %; BASO ABS # 0.01 K/uL (0-0.2); EOS % 1.2 %; EOS ABS # 0.07 K/uL (0-0.5); HEMATOCRIT 40.6 % (42-52); HEMOGLOBIN 13.4 g/dL (14.0-18.0); IG# 0.01 K/uL (0.00-0.02); LYMPH % 23.7 %; LYMPH ABS # 1.35 K/uL (1.2-3.4); MEAN CELL VOLUME 91.9 fL (80-100); MEAN CORPUSCULAR HEMOGLOBIN 30.3 pg (25-34); MEAN PLATELET VOLUME 10.2 fL (7.4-10.4); MONO % 13.7 %; MONO ABS # 0.78 K/uL (0.11-0.59); NEUT ABS # 3.48 K/uL (1.4-6.5); PLATELET COUNT 182 K/uL (130-400); RED CELL DISTRIBUTION WIDTH CV 14.7 % (11.5-14.5); RED CELL DISTRIBUTION WIDTH SD 49.6 fL (36.4-46.3)
[2017-12-14 13:30] LABS: ALBUMIN 3.5 gm/dl (3.4-5.0); ALKALINE PHOSPHATASE 74 U/L (45-117); ALT/SGPT 25 U/L (12-78); AST/SGOT 20 U/L (15-37); BLOOD UREA NITROGEN 22 mg/dl (7-18); CALCIUM 8.3 mg/dl (8.5-10.1); CARBON DIOXIDE 25 mmol/L (21-32); CHOLESTEROL 136 mg/dl (0-200); CREATININE 1.25 mg/dl (0.60-1.40); GLUCOSE,FASTING 104 mg/dl (70-99); LDL CHOLESTEROL CALCULATED 68 mg/dl; POTASSIUM 3.8 mmol/L (3.5-5.1); SODIUM 138 mmol/L (136-145); TOTAL PROTEIN 7.8 gm/dl (6.4-8.2)
== END | disposition home or self-care (01) ==
LOC: C.LABPBG 07:29
PROVIDERS: ATTEND Family Medicine
DX: E78.5 Hyperlipidemia, unspecified (principal); I10 Essential (primary) hypertension; D64.9 Anemia, unspecified

== ENCOUNTER 2021-03-22 03:11 | Inpatient (IN) ==
[2021-03-22 04:11] LABS: Basophils # (auto) 0.03 K/uL (0-0.2); Basophils % (auto) 0.4 %; Eosinophils # (auto) 0.16 K/uL (0-0.5); Eosinophils % (auto) 1.9 %; Hematocrit (blood only) 27.5 % (42-52); Hemoglobin 8.5 g/dL (14.0-18.0); Immature Granulocytes # (auto) 0.04 K/uL (0.00-0.02); Immature Granulocytes % (auto) 0.5 %; Lymphocytes # (auto) 1.44 K/uL (1.2-3.4); Lymphocytes % (auto) 16.9 %; Mean Corpuscular Hemoglobin 25.3 pg (25-34); Mean Corpuscular Hgb Conc 30.9 g/dL (32-36); Mean Corpuscular Volume 81.8 fL (80-100); Mean Platelet Volume 9.1 fL (7.4-10.4); Monocytes # (auto) 0.91 K/uL (0.11-0.59); Monocytes % (auto) 10.7 %; Neutrophils # (auto) 5.92 K/uL (1.4-6.5); Neutrophils % (auto) 69.6 %; Platelet Count 262 K/uL (130-400); RDW Coefficient of Variation 17.9 % (11.5-14.5); RDW Standard Deviation 54.5 fL (36.4-46.3); Red Blood Count 3.36 M/uL (4.7-6.1)
[2021-03-22 04:30] LABS: Alanine Aminotransferase 25 U/L (12-78); Albumin Level 3.1 gm/dl (3.4-5.0); Aspartate Aminotransferase 21 U/L (15-37); BUN Creatinine Ratio 21.3 (10-20); Blood Urea Nitrogen 31 mg/dl (7-18); Calcium 8.7 mg/dl (8.5-10.1); Carbon Dioxide 28 mmol/L (21-32); Chloride 107 mmol/L (98-107); Creatinine Clr Calc Pharmacy 44.2 ml/min; Est GFR (African American) 52.5 ml/min; Est GFR (Non-African American) 45.3 ml/min; Glucose 115 mg/dl (70-99); Magnesium 2.3 mg/dl (1.8-2.4); Potassium 3.7 mmol/L (3.5-5.1); Sodium 141 mmol/L (136-145)
[2021-03-22 04:41] LABS: Albumin Globulin Ratio 0.6 (0.9-2); Alkaline Phosphatase 93 U/L (45-117); Bilirubin,Total 0.3 mg/dl (0.2-1); Globulin 4.9 gm/dl (2.5-4.0); Troponin I < 0.015 ng/ml (0-0.045)
--- NOTE | 2021-03-22 05:39 | History & Physical Report ---
Date of Service March 22, 2021 Assessment & Plan (1) Anemia: Plan: Anemia/GAVE/GERD/history of acute blood loss anemia- Hemoglobin 8.5 upon admission, with most recent 13.5 Heme-negative in the ED Patient has not noted any recent blood in stool Patient has had a few weeks of diarrhea NPO Repeat H&H at 12:00 this afternoon Follow serial CBC with differential and chemistry profile every morning Protonix 40 mg IV twice daily Order CT of abdomen and pelvis without contrast to assess for possible retroperitoneal bleed Consult gastroenterology (2) GI bleed: Plan: See above (3) GERD (gastroesophageal reflux disease): Plan: See above (4) GAVE (gastric antral vascular ectasia): Plan: See above (5) Hypertension: Plan: Hold aspirin, amlodipine, metoprolol succinate and HCTZ Hydralazine 10 mg IV every 4 hours. Systolic blood pressure greater than 160 (6) Anxiety: Plan: Anxiety/mild cognitive impairment- Resume donepezil and escitalopram after GI status cleared (7) MCI (mild cognitive impairment): Plan: See above (8) Hyperlipidemia: Plan: Hold atorvastatin (9) Prostate cancer: History of Present Illness Chief Complaint: The patient was brought to the emergency department by family due to concerns regarding altered mentation and persistent diarrhea with fatigue Primary Care Provider: Chanel Cruz MD The patient is a 80-year-old male past medical history including prostate cancer, basilar artery thrombosis, syncope, facial contusion, mild cognitive impairment, hypertension, asthma, hyperlipidemia, anxiety, GERD, GAVE, ischemic stroke, prostate cancer, supraclinoid carotid artery aneurysm, hiatal hernia, GI bleed, GERD without esophagitis, iron deficiency anemia, and anemia due to acute blood loss. The patient presents to the emergency department as noted above. Abnormal laboratories: Hemoglobin 8.5, hematocrit 27.5 creatinine 1.43 Patient is COVID-[address] scan of head shows stable changes and ventricles, and no other acute changes Allergies Allergy/AdvReac Type Severity Reaction Status Date / Time No Known Allergies Allergy Verified 12/01/20 11:20 Home Medications Medication Instructions Recorded Confirmed Type potassium 99 mg tablet 99 mg PO QAM 10/04/18 12/01/20 History amlodipine 10 mg tablet 10 mg PO QAM #30 tab 05/13/20 12/01/20 Rx ascorbic acid (vitamin C) 500 mg 500 mg PO QAM #30 tab 05/13/20 12/01/20 Rx tablet (Vitamin C) aspirin 81 mg tablet,delayed 81 mg PO QAM #30 tab 05/13/20 12/01/20 Rx release (Aspirin Low Dose) atorvastatin 40 mg tablet 40 mg PO QPM #30 tab 05/13/20 12/01/20 Rx docusate sodium 100 mg tablet 100 mg PO QAM #30 tab 05/13/20 12/01/20 Rx escitalopram oxalate 10 mg tablet 10 mg PO QPM #30 tab 05/13/20 12/01/20 Rx hydrochlorothiazide 12.5 mg tablet 12.5 mg PO QAM #30 tab 05/13/20 12/01/20 Rx metoprolol succinate 25 mg 25 mg PO QAM #30 tab 05/13/20 12/01/20 Rx tablet,extended release 24 hr pxlyobqt-pma-pixje acid 0.4 1 tab PO QAM #30 tab 05/13/20 12/01/20 Rx mg-lycopene 300 mcg-lutein 250 mcg tablet (Centrum Silver) pantoprazole 40 mg tablet,delayed 40 mg PO QAM #30 tab 05/13/20 12/01/20 Rx release donepezil 5 mg tablet 5 mg PO HS #90 tab 12/01/20 12/01/20 Rx Past Med/Surg History Medical History (Updated 03/22/21 @ 06:17 by Ramiro Alamo MD) Acute chest wall pain Anemia Anemia due to acute blood loss Anxiety Basilar artery thrombosis Carcinoma of prostate Carotid aneurysm, left Chronic cough Fatigue Fe deficiency anemia GAVE (gastric antral vascular ectasia) GERD (gastroesophageal reflux disease) GERD without esophagitis GI bleed Hiatal hernia History of colon polyps Hyperlipidemia Hypertension Impacted cerumen of both ears Ischemic stroke Malignant neoplasm of prostate Occlusion and stenosis of basilar artery Prostate cancer Shortness of breath Small aneurysm of supraclinoid carotid artery Stroke 2017--no deficits, follows with Dr. Hernandes Stroke-like symptom Surgical History History of colonoscopy History of esophagogastroduodenoscopy (EGD) History of tooth extraction all upper and some lower Family History Mother Family history of diabetes mellitus Other No family history of adverse response to anesthesia Social History Smoking Status: Former smoker Second Hand Exposure: No; Hx Alcohol Use: No Hx Substance Use: No Preferred Language: Armenian Communication Ability: Impaired Mica Sizer Required: No Beliefs That Will Affect Care: None Current Living Situation: Spouse Feels Safe at Home: Yes Assistive Devices: Walker Review of Systems Review of Systems: The patient denies chest pain, palpitations, shortness of breath, dyspnea on exertion, cough, lower extremity swelling, sore throat, fevers, chills, sweats, nausea, vomiting, blood in urine or stool, dysuria, urinary frequency or urgency, lightheadedness, dizziness, headache, memory loss, loss of consciousness, rash, abnormal bruising or bleeding, focal weakness, numbness or tingling in arms or legs, generalized arthralgias or myalgias, back or neck pain, or night sweats. The review of systems is otherwise negative other than for that already noted above, and at least 10 systems have been reviewed. Physical Exam Physical Exam: The patient is awake, alert and oriented 3, normocephalic and atraumatic, lying in bed and in no acute distress. HEENT--PERRL, EOMI, mucous membranes and oropharynx dry. Neck--supple. No JVD. No bruits. Thyroid normal, trachea midline, no adenopathy. Heart--normal S1 and S2. No murmurs, rubs or gallops. Lungs--clear bilaterally, no respiratory distress, no accessory muscle use. Abdomen--normal bowel sounds and soft. Nontender. Nondistended. Mildly obese Extremities--no cyanosis or clubbing. No edema. Dermatologic--normal skin turgor, normal color, no abnormal lymph nodes, no rash. Neurologic--cranial nerves II through XII grossly intact. Rheumatologic--normal range of motion. Psychiatric--normal affect. Results & Data Results & Data ([facility]) Vital Signs (Past 12 Hours) Vital Signs Temp Pulse Pulse Resp BP BP Pulse Ox 03/22/21 05:30 68 21 151/66 H 96 03/22/21 05:00 62 22 155/71 H 96 03/22/21 04:35 20 152/69 H 97 03/22/21 04:00 64 26 H 147/72 H 97 03/22/21 03:41 63 20 97 03/22/21 03:29 70 14 155/80 H 96 03/22/21 03:21 96 03/22/21 03:12 36.9 C 67 14 144/104 H 97 Laboratory Results Laboratory Results WBC 8.50 K/uL (4.8-10.8) 03/22/21 03:53 RBC 3.36 M/uL (4.7-6.1) L 03/22/21 03:53 Hgb 8.5 g/dL (14.0-18.0) L 03/22/21 03:53 Hct 27.5 % (42-52) L 03/22/21 03:53 MCV 81.8 fL (80-100) 03/22/21 03:53 MCH 25.3 pg (25-34) 03/22/21 03:53 MCHC 30.9 g/dL (32-36) L 03/22/21 03:53 RDW Std Deviation 54.5 fL (36.4-46.3) H 03/22/21 03:53 RDW Coeff of [place] 17.9 % (11.5-14.5) H 03/22/21 03:53 Plt Count 262 K/uL (130-400) 03/22/21 03:53 MPV 9.1 fL (7.4-10.4) 03/22/21 03:53 Immature Gran % (Auto) 0.5 % 03/22/21 03:53 Neut % (Auto) 69.6 % 03/22/21 03:53 Lymph % (Auto) 16.9 % 03/22/21 03:53 [place] % (Auto) 10.7 % 03/22/21 03:53 Eos % (Auto) 1.9 % 03/22/21 03:53 Baso % (Auto) 0.4 % 03/22/21 03:53 Neut # (Auto) 5.92 K/uL (1.4-6.5) 03/22/21 03:53 Lymph # (Auto) 1.44 K/uL (1.2-3.4) 03/22/21 03:53 [place] # (Auto) 0.91 K/uL (0.11-0.59) H 03/22/21 03:53 Eos # (Auto) 0.16 K/uL (0-0.5) 03/22/21 03:53 Baso # (Auto) 0.03 K/uL (0-0.2) 03/22/21 03:53 Immature Gran # (Auto) 0.04 K/uL (0.00-0.02) H 03/22/21 03:53 Sodium 141 mmol/L (136-145) 03/22/21 03:53 Potassium 3.7 mmol/L (3.5-5.1) 03/22/21 03:53 Chloride 107 mmol/L (98-107) 03/22/21 03:53 Carbon Dioxide 28 mmol/L (21-32) 03/22/21 03:53 Anion Gap 6.0 (3-11) 03/22/21 03:53 BUN 31 mg/dl (7-18) H 03/22/21 03:53 Creatinine 1.43 mg/dl (0.6-1.4) H 03/22/21 03:53 Est Cr Clr Drug Dosing 44.2 ml/min 03/22/21 03:53 Est GFR ( Amer) 52.5 ml/min 03/22/21 03:53 Est GFR (Non-Af Amer) 45.3 ml/min 03/22/21 03:53 BUN/Creatinine Ratio 21.3 (10-20) H 03/22/21 03:53 Glucose 115 mg/dl (70-99) H 03/22/21 03:53 Lactate 1.3 mmol/L (0.4-2.0) 03/22/21 03:56 Calcium 8.7 mg/dl (8.5-10.1) 03/22/21 03:53 Magnesium 2.3 mg/dl (1.8-2.4) 03/22/21 03:53 Total Bilirubin 0.3 mg/dl (0.2-1) 03/22/21 03:53 AST 21 U/L (15-37) 03/22/21 03:53 ALT 25 U/L (12-78) 03/22/21 03:53 Alkaline Phosphatase 93 U/L (45-117) 03/22/21 03:53 Ammonia 17.0 umol/L (11-32) 03/22/21 03:58 Troponin I < 0.015 ng/ml (0-0.045) 03/22/21 03:53 Total Protein 8.0 gm/dl (6.4-8.2) 03/22/21 03:53 Albumin 3.1 gm/dl (3.4-5.0) L 03/22/21 03:53 Globulin 4.9 gm/dl (2.5-4.0) H 03/22/21 03:53 Albumin/Globulin Ratio 0.6 (0.9-2) L 03/22/21 03:53 TSH 1.540 uIu/ml (0.300-4.500) 03/22/21 03:53 Urine Color Yellow 03/22/21 04:57 Urine Appearance Clear (Clear) 03/22/21 04:57 Urine pH 7.0 (4.5-7.5) 03/22/21 04:57 Ur Specific [place] 1.014 (1.000-1.030) 03/22/21 04:57 Urine Protein Negative (Negative) 03/22/21 04:57 Urine Glucose (UA) Negative (Negative) 03/22/21 04:57 Urine Ketones Negative (Negative) 03/22/21 04:57 Urine Blood Negative (Negative) 03/22/21 04:57 Urine Nitrite Negative (Negative) 03/22/21 04:57 Urine Bilirubin Negative (Negative) 03/22/21 04:57 Urine Urobilinogen Negative (Negative) 03/22/21 04:57 Ur Leukocyte Esterase Negative (Negative) 03/22/21 04:57 SARS-CoV-2 (PCR) NEGATIVE (Negative) 03/22/21 04:03 Diagnostic Findings [facility] Patient: STEPHANY GREEN (Male) : 36 Status: ER Date: 03/22/21 04:36 Room #: History: ALTERED MENTAL STATUS, PT. HAVING INCREASED CONFUSION PER FAMILY MEMBERS PT. DENIES ANY PAIN AT THIS TIME Slices: 74 Priors: Tech: Danyelle Devi @ [phone] Exams: CT HEAD Contrast: Accession Numbers: [id number] Referring Physician: REFERRED SELF Preliminary Findings Only See Final Report For Complete Findings CT HEAD: No intracranial hemorrhage, mass-effect or midline shift. There is no abnormal extra axial fluid collection. No evidence of acute infarct. Mild periventricular white matter hypodensities are most consistent with chronic micro-angiopathy. There is stable configuration of the ventricles. Mild mucosal thickening of the maxillary and ethmoid sinuses. No mastoid effusion. No fracture. Radiologist: Sari Nava MD Study ready at 04:40 and initial results transmitted at 05:06 *This report constitutes a preliminary interpretation only. Non-acute findings felt to be unrelated to the clinical presentation may not be discussed in this report. The study will be interpreted and a final report will be generated by the local Radiologist the following shift. To reach the [facility] radiology department call [phone]. If a discrepancy is found between the preliminary and final interpretations of this study, please notify us via our Client Portal at [facility] [email or web address] under QA Exams. You can also fax this report with a description of the discrepancy, or include the final report, to our daytime fax number [phone]. If faxing, please indicate the severity of discrepancy using one of the following categories: [ ] 1 - Agree/Informational [ ] 2 - Unlikely to Affect Management [ ] 3 - Possible Eventual Change of Management [ ] 4 - Probable Immediate Change of Management For all other patient related information, please fax us at [phone] [id number] Code Status & VTE Plan Code Status Full code VTE Prophylaxis Plan VTE Prophylaxis will be ordered: Yes PG Care Time/CCT Total # of Minutes Spent Total Time Spent with Patient: Total time spent is greater than 50% in coordination of care (as documented) at patient's floor/unit and/or counseling patient: Coding Level of Care Code 13390 Initial Inpt Care Lvl 3 Diagnoses Anemia D64.9 Hypertension I10 MCI (mild cognitive impairment) G31.84 Hyperlipidemia E78.5 GI bleed K92.2 GERD (gastroesophageal reflux disease) K21.9 GAVE (gastric antral vascular ectasia) K31.819 Prostate cancer C61 Anxiety F41.9
[2021-03-22 05:48] LABS: Appearance Urine Clear (Clear); Bilirubin Urine Negative (Negative); Blood Urine Negative (Negative); Color Urine Yellow; Glucose Urine UA Negative (Negative); Ketones Urine Negative (Negative); Leukocyte Esterase Urine Negative (Negative); Nitrite Urine Negative (Negative); Protein Urine Negative (Negative); Specific Gravity Urine 1.014 (1.000-1.030); Urobilinogen Urine Negative (Negative)
[2021-03-22] MEDS ORDERED: hydrALAZINE HCL 20 MG/ML VIAL IV PRN (06:19)
--- NOTE | 2021-03-22 06:34 | Emergency Department Note ---
Impression & Plan AMS (altered mental status), Anemia ED Provider Note CHIEF COMPLAINT: Confusion, cough, weakness HISTORY OF PRESENT ILLNESS: This 80 yo male patient presents to the emergency department with his daughter, complaining of altered mental status and weakness. The patient has been sick for the last several days. He was tested for Covid yesterday and negative. He has been taking Coricidin for his cough and congestion. Patient's daughter states she is a nurse and that her mother has been giving him the medication, so she thinks it is very unlikely that he would have overdosed. Patient denies any complaints at this time but states he did wake up somewhat confused. He has a history of dementia. He denies any falls, chest pain, shortness of breath or syncopal episodes. He does have a history of prostate cancer and subsequently has difficulty with frequent urination. REVIEW OF SYSTEMS: A review of systems was performed with positives and pertinent negatives listed in the history of present illness. 10 systems were reviewed and are otherwise negative. ALLERGIES: see below MEDICATIONS: see below PMH: see below SOCIAL HISTORY: see below DDx: Infection, dehydration, metabolic abnormality, hypo/hyperglycemia, electrolyte disturbance, anemia, hypoxia, cardiac sources, intracerebral event, toxicologic, neurologic, as well as other pathologies. PHYSICAL EXAM: Vital signs reviewed. General: Elderly 80-year-old male, in no significant distress. HEENT: No scleral icterus, PERRLA, neck supple. Atraumatic. Cardiovascular: Regular rate and rhythm, no extra sounds. Pulmonary: Clear to auscultation bilaterally, normal work of breathing. Abdomen: Soft, nontender, nondistended, positive bowel sounds. Musculoskeletal: Atraumatic, no peripheral edema. Rectal: Normal external rectal mucosa. Guaiac negative dark brown stool. Neurologic: Patient awake alert and oriented x 3 Skin: Warm, dry, no rash EMERGENCY DEPARTMENT COURSE/MDM: This patient was evaluated and appeared to be in no significant distress. IV access was obtained and laboratory work was drawn. Patient's laboratory work reveals negative cardiac enzymes and anemia with a hemoglobin of 8.5. Rectal exam was performed and is guaiac negative. Covid swab was obtained and is negative. Chest x-ray reveals pulmonary vascular congestion. Head CT is negative for intracranial hemorrhage however there is chronic ventricular dilatation that appears to be stable. Patient's confusion is likely multifactorial including the anemia, the Coricidin and cough/lack of sleep. Case was discussed with the hospitalist service who will evaluate the patient for further management. MONITORING: An order for cardiac monitoring was placed and the patient is noted to be in a normal sinus rhythm at 70 beats per minute. RADIOLOGY: To my interpretation reveals cardiomegaly with pulmonary vascular congestion, poor inspiratory effort. EKG: sinus rhythm with first degree AV block, 67 bpm, QTc 450, no PVC, no PAC, poor quality baseline for interpretation. DISPOSITION: admit Past Med/Surg History Medical History (Updated 03/22/21 @ 06:34 by Hamida Tucker MD) Acute chest wall pain Anemia Anemia due to acute blood loss Anxiety Basilar artery thrombosis Carcinoma of prostate Carotid aneurysm, left Chronic cough Fatigue Fe deficiency anemia GAVE (gastric antral vascular ectasia) GERD (gastroesophageal reflux disease) GERD without esophagitis GI bleed Hiatal hernia History of colon polyps Hyperlipidemia Hypertension Impacted cerumen of both ears Ischemic stroke Malignant neoplasm of prostate Occlusion and stenosis of basilar artery Prostate cancer Shortness of breath Small aneurysm of supraclinoid carotid artery Stroke 2016--no deficits, follows with Dr. Hernandes Stroke-like symptom Surgical History History of colonoscopy History of esophagogastroduodenoscopy (EGD) History of tooth extraction all upper and some lower Family History Mother Family history of diabetes mellitus Other No family history of adverse response to anesthesia Social History Smoking Status: Former smoker Second Hand Exposure: No; Hx Alcohol Use: No Hx Substance Use: No Preferred Language: Palauan Communication Ability: Impaired Radial Saw Operator Required: No Beliefs That Will Affect Care: None Current Living Situation: Spouse Feels Safe at Home: Yes Assistive Devices: Walker Allergies Allergies Allergy/AdvReac Type Severity Reaction Status Date / Time No Known Allergies Allergy Verified 12/01/20 11:20 Home Meds Home Medications Medication Instructions Recorded Confirmed potassium 99 mg tablet 99 mg PO QAM 10/04/18 12/01/20 Previous Rx's Medication Instructions Recorded amlodipine 10 mg tablet 10 mg PO QAM #30 tab 05/13/20 ascorbic acid (vitamin C) 500 mg 500 mg PO QAM #30 tab 05/13/20 tablet (Vitamin C) aspirin 81 mg tablet,delayed 81 mg PO QAM #30 tab 05/13/20 release (Aspirin Low Dose) atorvastatin 40 mg tablet 40 mg PO QPM #30 tab 05/13/20 docusate sodium 100 mg tablet 100 mg PO QAM #30 tab 05/13/20 escitalopram oxalate 10 mg tablet 10 mg PO QPM #30 tab 05/13/20 hydrochlorothiazide 12.5 mg tablet 12.5 mg PO QAM #30 tab 05/13/20 metoprolol succinate 25 mg 25 mg PO QAM #30 tab 05/13/20 tablet,extended release 24 hr jkbzozby-bkz-duana acid 0.4 1 tab PO QAM #30 tab 05/13/20 mg-lycopene 300 mcg-lutein 250 mcg tablet (Centrum Silver) pantoprazole 40 mg tablet,delayed 40 mg PO QAM #30 tab 05/13/20 release donepezil 5 mg tablet 5 mg PO HS #90 tab 12/01/20 Results & Data (ED) Vital Signs Vital Signs - 24 hr 03/22/21 03:12 03/22/21 03:21 03/22/21 03:29 Temperature 36.9 C Temperature Source Oral Pulse Rate 67 Pulse Rate [Apical] 70 Pulse Rate from SpO2 Sensor Respiratory Rate 14 14 Respiratory Effort / Characteristics Non-Labored Respiratory Depth Normal Normal Blood Pressure 144/104 H Blood Pressure [Right Arm] 155/80 H Blood Pressure Mean 117 Blood Pressure Mean [Right Arm] 105 Pulse Oximetry 97 96 96 Oxygen Delivery Method Room Air Room Air Room Air Sepsis Recent Fever Within 48 Hours No Sepsis New/Unexplained Change in Mental Status N/A Sepsis Action Taken by Nursing No Action Required 03/22/21 03:41 03/22/21 04:00 03/22/21 04:35 Temperature Temperature Source Pulse Rate 63 64 Pulse Rate [Apical] Pulse Rate from SpO2 Sensor 63 63 Respiratory Rate 20 26 H 20 Respiratory Effort / Characteristics Respiratory Depth Blood Pressure 147/72 H 152/69 H Blood Pressure [Right Arm] Blood Pressure Mean 97 96 Blood Pressure Mean [Right Arm] Pulse Oximetry 97 97 97 Oxygen Delivery Method Room Air Room Air Room Air Sepsis Recent Fever Within 48 Hours Sepsis New/Unexplained Change in Mental Status Sepsis Action Taken by Nursing 03/22/21 05:00 03/22/21 05:30 Temperature Temperature Source Pulse Rate 62 68 Pulse Rate [Apical] Pulse Rate from SpO2 Sensor Respiratory Rate 22 21 Respiratory Effort / Characteristics Respiratory Depth Blood Pressure 155/71 H 151/66 H Blood Pressure [Right Arm] Blood Pressure Mean 99 94 Blood Pressure Mean [Right Arm] Pulse Oximetry 96 96 Oxygen Delivery Method Room Air Room Air Sepsis Recent Fever Within 48 Hours Sepsis New/Unexplained Change in Mental Status Sepsis Action Taken by Usp Medications Current Medication List: was personally reviewed by me Laboratory Data Attestation: I reviewed the patient's lab results. Result diagrams: 03/22/21 03:53 03/22/21 03:53 Lab Results 03/22/21 03/22/21 03/22/21 Range/Units 03:53 03:53 03:56 WBC 8.50 (4.8-10.8) K/uL RBC 3.36 L (4.7-6.1) M/uL Hgb 8.5 L (14.0-18.0) g/dL Hct 27.5 L (42-52) % MCV 81.8 (80-100) fL MCH 25.3 (25-34) pg MCHC 30.9 L (32-36) g/dL RDW Std Deviation 54.5 H (36.4-46.3) fL RDW Coeff of Poncho 17.9 H (11.5-14.5) % Plt Count 262 (130-400) K/uL MPV 9.1 (7.4-10.4) fL Immature Gran % (Auto) 0.5 % Neut % (Auto) 69.6 % Lymph % (Auto) 16.9 % [place] % (Auto) 10.7 % Eos % (Auto) 1.9 % Baso % (Auto) 0.4 % Neut # (Auto) 5.92 (1.4-6.5) K/uL Lymph # (Auto) 1.44 (1.2-3.4) K/uL [place] # (Auto) 0.91 H (0.11-0.59) K/uL Eos # (Auto) 0.16 (0-0.5) K/uL Baso # (Auto) 0.03 (0-0.2) K/uL Immature Gran # (Auto) 0.04 H (0.00-0.02) K/uL Sodium 141 (136-145) mmol/L Potassium 3.7 (3.5-5.1) mmol/L Chloride 107 (98-107) mmol/L Carbon Dioxide 28 (21-32) mmol/L Anion Gap 6.0 (3-11) BUN 31 H (7-18) mg/dl Creatinine 1.43 H (0.6-1.4) mg/dl Est Cr Clr Drug Dosing 44.2 ml/min Est GFR ( Amer) 52.5 ml/min Est GFR (Non-Af Amer) 45.3 ml/min BUN/Creatinine Ratio 21.3 H (10-20) Glucose 115 H (70-99) mg/dl Lactate 1.3 (0.4-2.0) mmol/L Calcium 8.7 (8.5-10.1) mg/dl Magnesium 2.3 (1.8-2.4) mg/dl Total Bilirubin 0.3 (0.2-1) mg/dl AST 21 (15-37) U/L ALT 25 (12-78) U/L Alkaline Phosphatase 93 (45-117) U/L Ammonia (11-32) umol/L Troponin I < 0.015 (0-0.045) ng/ml Total Protein 8.0 (6.4-8.2) gm/dl Albumin 3.1 L (3.4-5.0) gm/dl Globulin 4.9 H (2.5-4.0) gm/dl Albumin/Globulin Ratio 0.6 L (0.9-2) TSH 1.540 (0.300-4.500) uIu/ml Urine Color Urine Appearance (Clear) Urine pH (4.5-7.5) Ur Specific [place] (1.000-1.030) Urine Protein (Negative) Urine Glucose (UA) (Negative) Urine Ketones (Negative) Urine Blood (Negative) Urine Nitrite (Negative) Urine Bilirubin (Negative) Urine Urobilinogen (Negative) Ur Leukocyte Esterase (Negative) SARS-CoV-2 (PCR) (Negative) 03/22/21 03/22/21 03/22/21 Range/Units 03:58 04:03 04:57 WBC (4.8-10.8) K/uL RBC (4.7-6.1) M/uL Hgb (14.0-18.0) g/dL Hct (42-52) % MCV (80-100) fL MCH (25-34) pg MCHC (32-36) g/dL RDW Std Deviation (36.4-46.3) fL RDW Coeff of Poncho (11.5-14.5) % Plt Count (130-400) K/uL MPV (7.4-10.4) fL Immature Gran % (Auto) % Neut % (Auto) % Lymph % (Auto) % [place] % (Auto) % Eos % (Auto) % Baso % (Auto) % Neut # (Auto) (1.4-6.5) K/uL Lymph # (Auto) (1.2-3.4) K/uL [place] # (Auto) (0.11-0.59) K/uL Eos # (Auto) (0-0.5) K/uL Baso # (Auto) (0-0.2) K/uL Immature Gran # (Auto) (0.00-0.02) K/uL Sodium (136-145) mmol/L Potassium (3.5-5.1) mmol/L Chloride (98-107) mmol/L Carbon Dioxide (21-32) mmol/L Anion Gap (3-11) BUN (7-18) mg/dl Creatinine (0.6-1.4) mg/dl Est Cr Clr Drug Dosing ml/min Est GFR ( Amer) ml/min Est GFR (Non-Af Amer) ml/min BUN/Creatinine Ratio (10-20) Glucose (70-99) mg/dl Lactate (0.4-2.0) mmol/L Calcium (8.5-10.1) mg/dl Magnesium (1.8-2.4) mg/dl Total Bilirubin (0.2-1) mg/dl AST (15-37) U/L ALT (12-78) U/L Alkaline Phosphatase (45-117) U/L Ammonia 17.0 (11-32) umol/L Troponin I (0-0.045) ng/ml Total Protein (6.4-8.2) gm/dl Albumin (3.4-5.0) gm/dl Globulin (2.5-4.0) gm/dl Albumin/Globulin Ratio (0.9-2) TSH (0.300-4.500) uIu/ml Urine Color Yellow Urine Appearance Clear (Clear) Urine pH 7.0 (4.5-7.5) Ur Specific [place] 1.014 (1.000-1.030) Urine Protein Negative (Negative) Urine Glucose (UA) Negative (Negative) Urine Ketones Negative (Negative) Urine Blood Negative (Negative) Urine Nitrite Negative (Negative) Urine Bilirubin Negative (Negative) Urine Urobilinogen Negative (Negative) Ur Leukocyte Esterase Negative (Negative) SARS-CoV-2 (PCR) NEGATIVE (Negative) Blood Pressure Blood Pressure Findings: Elevated blood pressure Blood Pressure Disposition: Referred to patients primary care provider Discharge Plan Visit Data Chief Complaint: Illness Stated Complaint: ILLNESS/CONFUSION/WEAKNESS ED Provider: Hamida Tucker Discharge Problem: AMS (altered mental status), Anemia Forms Stand Alone Forms: [facility] Prescriptions Prescriptions: No Action donepezil 5 mg tablet 5 mg PO HS Qty: 90 RF: 3 potassium 99 mg Tablet 99 mg PO QAM RF: 0 atorvastatin 40 mg Tablet 40 mg PO QPM Qty: 30 RF: 0 aspirin [Aspirin Low Dose] 81 mg Tablet,Delayed Release (Dr/Ec) 81 mg PO QAM Qty: 30 RF: 0 ascorbic acid (vitamin C) [Vitamin C] 500 mg Tablet 500 mg PO QAM Qty: 30 RF: 0 amlodipine 10 mg Tablet 10 mg PO QAM Qty: 30 RF: 0 pantoprazole 40 mg Tablet,Delayed Release (Dr/Ec) 40 mg PO QAM Qty: 30 RF: 0 metoprolol succinate 25 mg Tablet Extended Release 24 Hr 25 mg PO QAM Qty: 30 RF: 0 docusate sodium 100 mg Tablet 100 mg PO QAM Qty: 30 RF: 0 escitalopram oxalate 10 mg tablet 10 mg PO QPM Qty: 30 RF: 0 Centrum Silver 0.4-300-250 mg-mcg-mcg Tablet 1 tab PO QAM Qty: 30 RF: 0 hydrochlorothiazide 12.5 mg Tablet 12.5 mg PO QAM Qty: 30 RF: 0 Referrals Referrals: Chanel Cruz MD [Primary Care Provider] - Discharge Problem: AMS (altered mental status) Qualifiers: Altered mental status type: disorientation Qualified Code(s): R41.0 - Disorientation, unspecified Anemia Qualifiers: Anemia type: unspecified type Qualified Code(s): D64.9 - Anemia, unspecified
--- NOTE | 2021-03-22 06:35 | CT Scan Report ---
CT OF THE HEAD WITHOUT CONTRAST CLINICAL HISTORY: Altered mental status. COMPARISON STUDY: Head CT May 08, 2020. CT DOSE: 960.06 mGy.cm TECHNIQUE: Helical axial images of the head were obtained without IV contrast. Automated exposure con trol was utilized for the study. A dose lowering technique was utilized adhering to the principles o f ALARA. FINDINGS: No acute intracranial hemorrhage, midline shift or mass effect is present. The ventricular system is stable. White matter hypodensity suggests small vessel disease. The basal cisterns are acosta nt. No extra-axial collections are present. There are no findings to suggest acute dural sinus thromb osis or acute territorial infarct. No significant calvarial abnormalities are present. There is mild sinus mucosal thickening. IMPRESSION: No acute intracranial findings. No change in appearance of the brain. ACT 112: Negative or not required by law. Electronically signed by: Angel Mann M.D. 03/22/2021 6:34 AM
--- NOTE | 2021-03-22 06:46 | XRay Report ---
XR chest 1V portable CLINICAL HISTORY: weakness COMPARISON STUDY: Chest radiograph May 07, 2020. FINDINGS: Lung volumes are mildly diminished. This is unchanged. There is no pneumothorax or pleural effusion. Cardiomegaly is unchanged. There is no evidence for pulmonary edema. There is mild right ba silar opacity. There is mild lower lung interstitial thickening. IMPRESSION: 1. Mild right lower lung interstitial thickening opacity. This appears similar to prior exam and may be chronic however an infectious process cannot be excluded. 2. Cardiomegaly without evidence for pulmonary edema. ACT 112: Negative or not required by law. Electronically signed by: Angel Mann M.D. 03/22/2021 6:44 AM
--- NOTE | 2021-03-22 07:56 | CT Scan Report ---
CT OF THE ABDOMEN AND PELVIS WITHOUT CONTRAST CLINICAL HISTORY: anemia, assess for retroperitoneal bleed COMPARISON STUDY: Right upper quadrant ultrasound May 26, 2017. TECHNIQUE: Axial images of the abdomen and pelvis were obtained without IV contrast. Images were revi ewed in the axial, sagittal, and coronal planes. Automated exposure control was utilized for the sally dy. A dose lowering technique was utilized adhering to the principles of ALARA. FINDINGS: Left lower lobe airspace opacity favors atelectasis. No pneumatosis, free air or portal nadeem ous gas is present. There is no retroperitoneal hematoma. There is no hemoperitoneum. Evaluation of t he abdomen and pelvis is suboptimal on this unenhanced exam. The liver, spleen, adrenal glands and pa ncreas are unremarkable. There is no biliary or pancreatic ductal dilatation. No peripancreatic or pe richolecystic infiltration. Moderate bilateral renal cortical thinning is noted. There is no hydronep hrosis. A 3.2 cm water attenuation lesion within the lower pole of the left kidney is suboptimally as sessed on this unenhanced exam but favors a cyst. There is a 1.3 cm hypodense lesion within the midpo le of the left kidney. There is no urinary calculi. There is no evidence for a bowel obstruction. Col onic diverticulosis is noted without evidence for acute diverticulitis. Fat-containing bilateral ingu inal hernias are present. There is no lymphadenopathy or ascites. No acute fracture or suspicious les ion is identified within the visualized skeletal structures. IMPRESSION: 1. No acute process within the abdomen or pelvis on unenhanced exam. No retroperitoneal hematoma. 2. Colonic diverticulosis without evidence for acute diverticulitis. 3. 1.3 cm hyperdense left renal lesion. This could reflect a hyperdense cyst or small solid renal les ion. Follow-up nonemergent renal ultrasound is recommended. ACT 112: Negative or not required by law. Electronically signed by: Angel Mann M.D. 03/22/2021 7:54 AM
[2021-03-22] MEDS ORDERED: SODIUM CHLORIDE 0.9% 250 ML IV PRN (09:33)
--- NOTE | 2021-03-22 14:25 | Electrocardiogram Report ---
Test Reason : Blood Pressure : / mmHG Vent. Rate : 067 BPM Atrial Rate : 067 BPM P-R Int : 238 ms QRS Dur : 096 ms QT Int : 426 ms P-R-T Axes : 058 -02 015 degrees QTc Int : 450 ms Sinus rhythm with 1st degree A-V block Otherwise normal ECG When compared with ECG of 11-MAY-2020 17:01, T wave inversion no longer evident in Anterior leads Confirmed by Adriano Santa ([id number]) on 03/22/2021 2:25:50 PM Referred By: REFERRED SELF Confirmed By:Theo Santa
--- NOTE | 2021-03-22 16:26 | Gastrointestinal Consultation ---
Date of Consultation March 22, 2021 Assessment & Plan (1) Anemia: Discussed with resident team that with heme negative stool he is no having an acute bleed. Normocytic anemia does not even suggest chronic bleeding. Would recommend Fe sat and ferritin now to see whether Fe def anemia is present. If Fe deficiency anemia is present then elective GI workup could be entertained renal lesion on CT--workup per primary team. History of Present Illness Reason for Consultation: anemia, rule out GI bleeding Attending Physician: Ramiro Alamo MD History of Present Illness CC no abd complaints HPI Pt with history of GAVE with APC done 09/[address] Villatoro. Pt admitted with weakness and confustion and noted to have normochromic anemia of 8.5 vs 13.5 04/2020. Pt denies gross bleeding and rectal in ER heme negative. CT a/p scan no bleeding noted--diverticulosis and renal cyst vs tumor noted. . Allergies Allergy/AdvReac Type Severity Reaction Status Date / Time No Known Allergies Allergy Verified 03/22/21 07:40 Home Medications Medication Instructions Recorded Confirmed Type amlodipine 10 mg tablet 10 mg PO QAM #30 tab 05/13/20 03/22/21 Rx ascorbic acid (vitamin C) 500 mg 500 mg PO QAM #30 tab 05/13/20 03/22/21 Rx tablet (Vitamin C) aspirin 81 mg tablet,delayed 81 mg PO QAM #30 tab 05/13/20 03/22/21 Rx release (Aspirin Low Dose) atorvastatin 40 mg tablet 40 mg PO QPM #30 tab 05/13/20 03/22/21 Rx docusate sodium 100 mg tablet 100 mg PO QAM #30 tab 05/13/20 03/22/21 Rx escitalopram oxalate 10 mg tablet 10 mg PO QPM #30 tab 05/13/20 03/22/21 Rx hydrochlorothiazide 12.5 mg tablet 12.5 mg PO QAM #30 tab 05/13/20 03/22/21 Rx metoprolol succinate 25 mg 25 mg PO QAM #30 tab 05/13/20 03/22/21 Rx tablet,extended release 24 hr vwxuuvsn-zxt-oegkl acid 0.4 1 tab PO QAM #30 tab 05/13/20 03/22/21 Rx mg-lycopene 300 mcg-lutein 250 mcg tablet (Centrum Silver) pantoprazole 40 mg tablet,delayed 40 mg PO QAM #30 tab 05/13/20 03/22/21 Rx release donepezil 5 mg tablet 5 mg PO HS #90 tab 12/01/20 03/22/21 Rx Patient History Medical History (Updated 03/22/21 @ 06:34 by Hamida Tucker MD) Acute chest wall pain Anemia Anemia due to acute blood loss Anxiety Basilar artery thrombosis Carcinoma of prostate Carotid aneurysm, left Chronic cough Fatigue Fe deficiency anemia GAVE (gastric antral vascular ectasia) GERD (gastroesophageal reflux disease) GERD without esophagitis GI bleed Hiatal hernia History of colon polyps Hyperlipidemia Hypertension Impacted cerumen of both ears Ischemic stroke Malignant neoplasm of prostate Occlusion and stenosis of basilar artery Prostate cancer Shortness of breath Small aneurysm of supraclinoid carotid artery Stroke 2017--no deficits, follows with Dr. Hernandes Stroke-like symptom Surgical History History of colonoscopy History of esophagogastroduodenoscopy (EGD) History of tooth extraction all upper and some lower Family History Mother Family history of diabetes mellitus Other No family history of adverse response to anesthesia Social History Smoking Status: Former smoker Second Hand Exposure: No; Hx Alcohol Use: No Hx Substance Use: No Preferred Language: Slovak Communication Ability: Impaired Dinkey Brakeman Required: No Beliefs That Will Affect Care: None Current Living Situation: Spouse Feels Safe at Home: Yes Assistive Devices: Walker Review of Systems Review of Systems: All systems reviewed & are unremarkable except as noted in HPI & below Physical Exam Constitutional: WD/WN, vitals as above ENMT: external ear and nose normal Neck: normal visual inspection and trachea midline Respiratory: normal respiratory effort, lungs clear to auscultation Cardiovascular: RRR, no murmur, no edema Gastrointestinal (Abdomen): normal bowel sounds, soft, nontender, no hepatosplenomegaly Skin: normal turgor; no induration Neurologic: PERRL, EOMI, accommodation nl, no face palsy, no dysarthria Psychiatric: alert Results & Data ([facility]) Vital Signs (Past 12 Hours) Vital Signs Pulse Pulse Resp BP BP Pulse Ox 03/22/21 15:30 71 16 03/22/21 15:06 97 03/22/21 14:38 67 16 153/74 H 96 03/22/21 14:30 63 18 97 03/22/21 14:00 65 19 147/69 H 03/22/21 13:30 66 21 03/22/21 13:00 61 20 98 03/22/21 12:30 60 63 18 133/82 95 03/22/21 12:00 65 18 03/22/21 11:30 62 17 148/77 H 03/22/21 11:05 66 18 156/69 H 97 03/22/21 10:30 62 17 03/22/21 10:00 64 17 03/22/21 09:30 63 18 152/71 H 03/22/21 09:00 68 21 165/74 H 94 03/22/21 08:30 71 17 158/71 H 03/22/21 08:00 73 20 03/22/21 07:30 65 22 143/56 H 95 03/22/21 07:00 63 20 150/71 H 96 03/22/21 06:00 65 19 152/71 H 96 03/22/21 05:30 68 21 151/66 H 96 03/22/21 05:00 62 22 155/71 H 96 03/22/21 04:35 20 152/69 H 97 (1) Anemia Anemia type: unspecified type Qualified Code(s): D64.9 - Anemia, unspecified
--- NOTE | 2021-03-22 17:00 | Communication Note ---
Date of Service: March 22, 2021 Patient seen and reviewed plan started by Dr Alamo. New onset altered mental status over the course of a few days likely due to multiple variables including side effects from cold medication, chronic anemia, baseline dementia. Spoke to GI about the case, likely not an acute bleed due to guaiac negative Hemoccult test done in ER. Just in case there are 2 units of blood being held for him. Per GI, TIBC, ferritin, iron ordered to evaluate for cause of anemia. Patient will get regular diet for now.
[2021-03-22] MEDS ORDERED: ONDANSETRON INJ 2 MG/ML 2 ML VIAL IV PRN (18:07)
[2021-03-22 19:03] LABS: Hematocrit (blood only) 29.3 % (42-52); Hemoglobin 9.1 g/dL (14.0-18.0)
[2021-03-22] MEDS: PANTOprazole 40 MG in SYRINGE 0 ML IV SCH (19:05)
[2021-03-22] MEDS: SODIUM CHLORIDE 0.9% 1000ML 1,000 ML IV SCH (19:08)
[2021-03-22 19:43] LABS: Iron 18 mcg/dl (35-175); Total Iron Binding Capacity 342 mcg/dl (250-450); Transferrin 261 mg/dl (200-360)
[2021-03-23] MEDS ORDERED: OLANZapine ZYDIS 5 MG ORALLY DIS. TAB PO STA (00:02)
[2021-03-23 05:42] LABS: Basophils # (auto) 0.01 K/uL (0-0.2); Basophils % (auto) 0.1 %; Eosinophils # (auto) 0.05 K/uL (0-0.5); Eosinophils % (auto) 0.6 %; Hematocrit (blood only) 28.4 % (42-52); Hemoglobin 8.7 g/dL (14.0-18.0); Immature Granulocytes # (auto) 0.01 K/uL (0.00-0.02); Immature Granulocytes % (auto) 0.1 %; Lymphocytes # (auto) 1.32 K/uL (1.2-3.4); Lymphocytes % (auto) 15.1 %; Mean Corpuscular Hgb Conc 30.6 g/dL (32-36); Mean Corpuscular Volume 81.6 fL (80-100); Monocytes # (auto) 0.98 K/uL (0.11-0.59); Monocytes % (auto) 11.2 %; Neutrophils # (auto) 6.39 K/uL (1.4-6.5); Neutrophils % (auto) 72.9 %; Platelet Count 267 K/uL (130-400); RDW Standard Deviation 54.3 fL (36.4-46.3); Red Blood Count 3.48 M/uL (4.7-6.1); White Blood Count 8.76 K/uL (4.8-10.8)
[2021-03-23 06:02] LABS: INR 1.1 (0.9-1.1); Partial Thromboplastin Time 27.3 Seconds (21.0-31.0); Prothrombin Time 11.2 Seconds (9.0-12.0)
[2021-03-23 06:10] LABS: BUN Creatinine Ratio 19.2 (10-20); Calcium 8.6 mg/dl (8.5-10.1); Creatinine Clr Calc Pharmacy 52.2 ml/min; Est GFR (African American) 65.5 ml/min; Est GFR (Non-African American) 56.5 ml/min; Magnesium 2.4 mg/dl (1.8-2.4); Potassium 3.5 mmol/L (3.5-5.1)
[2021-03-23 06:13] LABS: Albumin Globulin Ratio 0.6 (0.9-2); Bilirubin,Total 0.6 mg/dl (0.2-1); Globulin 4.8 gm/dl (2.5-4.0); Total Protein 7.8 gm/dl (6.4-8.2)
--- NOTE | 2021-03-23 06:27 | Ultrasound Report ---
RENAL ULTRASOUND CLINICAL HISTORY: cyst noted on L kidney COMPARISON STUDY: CT of the abdomen and pelvis March 22, 2021. TECHNIQUE: Sonography of the kidneys and the urinary bladder was performed. FINDINGS: Right kidney measures 10.4 cm in maximal dimension and the left measures 11.9 cm. There is moderate to severe bilateral renal cortical thinning. There is no hydronephrosis. There is a 9 mm rig ht renal cyst which contains an echogenic focus. Note is made of a 3.1 cm cyst arising from the lower pole of the left kidney. This corresponds to the water attenuation lesion on CT of March 22, 2021 . Note is also made of a 1.4 cm cyst within the midpole of the left kidney which corresponds to the h yperdense lesion on CT. There is an additional 1.1 cm left renal cyst. No solid renal lesion is ident ified by sonography. The ureteral jets were visualized. IMPRESSION: 1. 1.4 cm cyst within the midpole of the left kidney which corresponds to the hyperdense lesion on CT performed earlier today. Therefore, this lesion is benign. 2. Moderate to severe bilateral renal cortical thinning. 3. No hydronephrosis. ACT 112: Negative or not required by law. Electronically signed by: Angel Mann M.D. 03/23/2021 6:25 AM
[2021-03-23] MEDS: PANTOprazole 40 MG in SYRINGE 0 ML IV SCH (08:22)
[2021-03-23 08:46] LABS: Reticulocyte % 2.1 % (0.5-2.0); Reticulocytes # 0.07 10^6/uL (0.02-0.10)
--- NOTE | 2021-03-23 08:47 | Gastroenterology Progress Note ---
Date of Service March 23, 2021 Assessment & Plan (1) Anemia: Plan: The patient is a pleasant 80-year-old male which GI was consulted for due to chronic anemia. Heme-negative stool indicative of no acute bleed. Normocytic anemia. Iron studies demonstrated low iron level of 18. Added ferritin to labs as I did not see this resulted. Please refer to supervising physician addendum for further recommendations. Admission and Anticipated Discharge Date Admission Date: March 22, 2021 Supervising Physician Co-Signing Physician Notes I have seen and examined the patient. I agree with note above by TRAVIS Krishnan except as noted below. HPI Pt denies abd pain PE Abdomen pos bs, soft, no guarding nor rebound A/P Fe def anemia Fe sat is 5-7% depending if use TIBC or transferrin but low either way. --discussed with attending and market research intern regarding recommend GI workup if patient/family agreeable but not in setting of acute mental status changes. Will sign off. Send for outpt eval as desired. Subjective Patient is awake and pleasantly confused. He is alert to person. He tried to crawl out of bed when I entered the room. I assisted nursing to help patient back in the bed. Incontinent of urine. He denies any pain, nausea, vomiting. No bowel movement per nursing. Review of Systems Review of Systems: Unobtainable due to cognitive status Physical Exam Gastrointestinal (Abdomen): normal bowel sounds, soft, nontender, no hepatosplenomegaly Results & Data ([facility]) Vital Signs (Past 12 Hours) Vital Signs Temp Pulse Pulse Resp BP Pulse Ox 03/23/21 07:21 37 C 79 18 161/71 H 95 03/23/21 07:00 82 03/23/21 02:33 37.0 C 74 18 166/79 H 96 03/22/21 22:35 37.1 C 75 18 151/64 H 95 03/22/21 22:19 74 Laboratory Results Laboratory Results - last 24 hr 03/22/21 03/22/21 03/22/21 09:48 18:38 18:38 WBC RBC Hgb 9.1 L Hct 29.3 L MCV MCH MCHC RDW Std Deviation RDW Coeff of [place] Plt Count MPV Immature Gran % (Auto) Neut % (Auto) Lymph % (Auto) [place] % (Auto) Eos % (Auto) Baso % (Auto) Reticulocyte % (Auto) Neut # (Auto) Lymph # (Auto) [place] # (Auto) Eos # (Auto) Baso # (Auto) Reticulocyte # Immature Gran # (Auto) Peripher Smr Path Cons PT INR APTT PTT Ratio Sodium Potassium Chloride Carbon Dioxide Anion Gap BUN Creatinine Est Cr Clr Drug Dosing Est GFR ( Amer) Est GFR (Non-Af Amer) BUN/Creatinine Ratio Glucose Calcium Magnesium Iron 18 L TIBC 342 Transferrin 261 Total Bilirubin AST ALT Alkaline Phosphatase Total Protein Albumin Globulin Albumin/Globulin Ratio Blood Type O Positive Antibody Screen NEGATIVE Crossmatch See Detail 03/23/21 03/23/21 03/23/21 05:26 05:26 05:26 WBC 8.76 RBC 3.48 L Hgb 8.7 L Hct 28.4 L MCV 81.6 MCH 25.0 MCHC 30.6 L RDW Std Deviation 54.3 H RDW Coeff of [place] 18.0 H Plt Count 267 MPV 9.0 Immature Gran % (Auto) 0.1 Neut % (Auto) 72.9 Lymph % (Auto) 15.1 [place] % (Auto) 11.2 Eos % (Auto) 0.6 Baso % (Auto) 0.1 Reticulocyte % (Auto) Pending Neut # (Auto) 6.39 Lymph # (Auto) 1.32 [place] # (Auto) 0.98 H Eos # (Auto) 0.05 Baso # (Auto) 0.01 Reticulocyte # Pending Immature Gran # (Auto) 0.01 Peripher Smr Path Cons Pending PT 11.2 INR 1.1 APTT 27.3 PTT Ratio 1.0 Sodium 140 Potassium 3.5 Chloride 109 H Carbon Dioxide 26 Anion Gap 5.0 BUN 23 H Creatinine 1.19 Est Cr Clr Drug Dosing 52.2 Est GFR ( Amer) 65.5 Est GFR (Non-Af Amer) 56.5 BUN/Creatinine Ratio 19.2 Glucose 100 H Calcium 8.6 Magnesium 2.4 Iron TIBC Transferrin Total Bilirubin 0.6 AST 20 ALT 23 Alkaline Phosphatase 94 Total Protein 7.8 Albumin 3.0 L Globulin 4.8 H Albumin/Globulin Ratio 0.6 L Blood Type Antibody Screen Crossmatch Diagnostic Findings Renal Ultrasound 03/22/21 18:07 RENAL ULTRASOUND CLINICAL HISTORY: cyst noted on L kidney COMPARISON STUDY: CT of the abdomen and pelvis March 22, 2021. TECHNIQUE: Sonography of the kidneys and the urinary bladder was performed. FINDINGS: Right kidney measures 10.4 cm in maximal dimension and the left measures 11.9 cm. There is moderate to severe bilateral renal cortical thinning. There is no hydronephrosis. There is a 9 mm right renal cyst which contains an echogenic focus. Note is made of a 3.1 cm cyst arising from the lower pole of the left kidney. This corresponds to the water attenuation lesion on CT of March 22, 2021. Note is also made of a 1.4 cm cyst within the midpole of the left kidney which corresponds to the hyperdense lesion on CT. There is an additional 1.1 cm left renal cyst. No solid renal lesion is identified by sonography. The ureteral jets were visualized. IMPRESSION: 1. 1.4 cm cyst within the midpole of the left kidney which corresponds to the hyperdense lesion on CT performed earlier today. Therefore, this lesion is benign. 2. Moderate to severe bilateral renal cortical thinning. 3. No hydronephrosis. ACT 112: Negative or not required by law. Electronically signed by: Angel Mann M.D. 03/23/2021 6:25 AM (1) Anemia Anemia type: unspecified type Qualified Code(s): D64.9 - Anemia, unspecified
[2021-03-23 09:12] LABS: RBC Morphology Unremarkable
[2021-03-23] MEDS: SODIUM CHLORIDE 0.9% 1000ML 1,000 ML IV SCH ×2 (10:03→23:07)
[2021-03-23] MEDS: FERROUS SULFATE 325 MG TAB PO SCH (10:33)
--- NOTE | 2021-03-23 16:01 | Hospitalist Progress Note ---
Date of Service March 23, 2021 Assessment & Plan (1) AMS (altered mental status): Plan: (1) Altered mental status Plan: Baseline mild cognitive impairment noted by neurology in previous outpatient visit. Previous MRI showed enlarged ventricles bilaterally but "does not appear to be normal pressure hydrocephalus "per neurology. 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 Ordered MRI today, if concerning consider consulting neurology At this time not likely due to cold medications as this would have left his system by now Differential includes normal pressure hydrocephalus versus delirium on top of baseline dementia versus vascular dementia versus progression of baseline dementia (2) Anemia: Plan: Hemoglobin 8.5 upon admission, with most recent being 8.7. Heme-negative in the ED Iron panel revealed low iron, normal TIBC, low ferritin, and normal transferrin Patient has not noted any recent blood in stool Patient has had a few weeks of diarrhea Repeat H&H at 12:00 this afternoon Follow serial CBC with differential and chemistry profile every morning Protonix discontinued as no active GI bleed is present. Gastroenterology has signed off on this patient as anemia is stable and not acute. (3) GAVE (gastric antral vascular ectasia): Plan: See above (4) Hypertension: Plan: Hold aspirin, amlodipine, metoprolol succinate and HCTZ Hydralazine 10 mg IV every 4 hours. Systolic blood pressure greater than 160 (5) Anxiety: Plan: Anxiety/mild cognitive impairment- Resume donepezil and escitalopram after GI status cleared (6) MCI (mild cognitive impairment): Plan: See above (7) Hyperlipidemia: Plan: Hold atorvastatin (8) Prostate cancer: (2) Anemia: (3) GAVE (gastric antral vascular ectasia): (4) GERD (gastroesophageal reflux disease): (5) Hyperlipidemia: (6) MCI (mild cognitive impairment): Admission and Anticipated Discharge Date Admission Date: March 22, 2021 Supervising Physician Co-Signing Physician Notes I also saw the patient along with the resident physician and confirmed goldberg portions of the history and physical examination. I agree with the impression and plan as noted in the resident documentation. Also discussed the case with the gastroenterology pmo consultant. The patient is seen late afternoon at bedside. He is sleeping but awakens to voice. He is alert to his name only. When we are not in conversation with him, he stares straight upwards at the ceiling. Outside records were reviewed today. Noted in his outpatient chart were previous episodes of altered mental status, but I do not think to the degree of alteration of this presentation. Also reviewed was a outpatient neurology note from November of this year; he describes mild cognitive decline/memory impairment, perhaps early dementia. The patient is currently on Aricept 5 mg; he was on 10 mg previously but back down to 5mg due to tolerability issues. 169/75, 80, 18, 36.7, 96% on room air Alert, oriented x1 Data Hemoglobin 8.7, platelet count 267 Sodium 140, potassium 3.5 BUN 23, creatinine 1.19 Blood cultures dated 03/22/2021 showed no growth at 24 hours Imaging A renal ultrasound demonstrates a 1.4 cm cyst within the midpole of the left kidney. Assessment and Plan Altered mental status in the setting of mild cognitive impairment No clear cause for his altered mental status. This could be progression of his dementia and some delirium secondary to hospitalization, although this would represent rather rapid progression of his dementia if he was characterized as mild cognitive impairment 3 months ago. No signs of infection or metabolic derangement. Agree with MRI today Consider neurology consultation Anemia, iron deficiency Stable, may be more chronic in nature Gastroenterology consultation appreciated We will begin to replete iron Subjective Seen at bedside this morning. Patient's altered mental status seems to have declined as he seems more confused today than he was yesterday. Last night he did have a bout of aggression that required the use of Zyprexa to relieve his agitation. He is still unaware of where he is, why is here, as well as what year it is. He does recognize his name and his date of . When talking with him he is talking about hunting and hoping the weather clears up as he looks up to the ceiling. States that he is in no pain. No other meaningful HPI or review of systems could be obtained due to mental status. Review of Systems Review of Systems: Unobtainable due to cognitive status Physical Exam Constitutional: well developed, well nourished, + obese and + altered mental status; no acute distress Eyes: + anicteric sclerae Neck: normal visual inspection and trachea midline Respiratory: normal respiratory effort, lungs clear to auscultation Cardiovascular: RRR, no murmur, no edema Gastrointestinal (Abdomen): normal bowel sounds, soft, nontender, no hepatosplenomegaly Skin: no rashes, warm and dry Neurologic: moves all extremities Psychiatric: Orientation: oriented to person and cooperative; + not oriented to place and + not oriented to time Eye Contact: + poor eye contact Hallucinations: + visual hallucinations Judgement: + impaired judgement Results & Data Results & Data ([facility]) Vital Signs (Past 12 Hours) Vital Signs Temp Pulse Pulse Resp BP Pulse Ox 03/23/21 15:17 36.7 C 84 18 195/73 H 96 03/23/21 11:29 37.2 C 75 18 159/71 H 98 03/23/21 07:21 37 C 79 18 161/71 H 95 03/23/21 07:00 82 Resident Activity Tracking Resident Involvement: Resident Care Provided Care Provided: Adult Hospital Medicine (1) Anemia Anemia type: unspecified type Qualified Code(s): D64.9 - Anemia, unspecified (2) AMS (altered mental status) Altered mental status type: disorientation Qualified Code(s): R41.0 - Disorientation, unspecified
[2021-03-24 07:10] LABS: Basophils # (auto) 0.03 K/uL (0-0.2); Basophils % (auto) 0.3 %; Eosinophils # (auto) 0.08 K/uL (0-0.5); Eosinophils % (auto) 0.9 %; Hematocrit (blood only) 28.7 % (42-52); Hemoglobin 8.7 g/dL (14.0-18.0); Immature Granulocytes # (auto) 0.05 K/uL (0.00-0.02); Immature Granulocytes % (auto) 0.6 %; Lymphocytes # (auto) 1.48 K/uL (1.2-3.4); Lymphocytes % (auto) 16.7 %; Mean Corpuscular Hemoglobin 24.7 pg (25-34); Mean Corpuscular Hgb Conc 30.3 g/dL (32-36); Mean Corpuscular Volume 81.5 fL (80-100); Mean Platelet Volume 9.1 fL (7.4-10.4); Monocytes # (auto) 1.02 K/uL (0.11-0.59); Monocytes % (auto) 11.5 %; Neutrophils # (auto) 6.22 K/uL (1.4-6.5); Platelet Count 264 K/uL (130-400); RDW Coefficient of Variation 18.3 % (11.5-14.5); RDW Standard Deviation 54.4 fL (36.4-46.3); Red Blood Count 3.52 M/uL (4.7-6.1); White Blood Count 8.88 K/uL (4.8-10.8)
[2021-03-24 07:16] LABS: INR 1.1 (0.9-1.1); Partial Thromboplastin Time 27.1 Seconds (21.0-31.0)
[2021-03-24 07:55] LABS: Albumin Level 2.9 gm/dl (3.4-5.0); BUN Creatinine Ratio 17.8 (10-20); Calcium 8.6 mg/dl (8.5-10.1); Creatinine Clr Calc Pharmacy 59.2 ml/min; Est GFR (African American) 76.2 ml/min; Est GFR (Non-African American) 65.8 ml/min; Magnesium 2.3 mg/dl (1.8-2.4); Potassium 3.4 mmol/L (3.5-5.1)
[2021-03-24 07:58] LABS: Albumin Globulin Ratio 0.6 (0.9-2); Bilirubin,Total 0.7 mg/dl (0.2-1); Globulin 4.7 gm/dl (2.5-4.0); Total Protein 7.6 gm/dl (6.4-8.2)
[2021-03-24] MEDS: SODIUM CHLORIDE 0.9% 1000ML 1,000 ML IV SCH ×2 (09:36→21:28)
[2021-03-24] MEDS: FERROUS SULFATE 325 MG TAB PO SCH (09:36)
[2021-03-24] MEDS ORDERED: LORazepam 0.5 MG TAB PO STA (15:46)
--- NOTE | 2021-03-24 17:49 | Hospitalist Progress Note ---
Date of Service March 24, 2021 Assessment & Plan (1) AMS (altered mental status): Plan: (1) Altered mental status Plan: Baseline mild cognitive impairment noted by neurology in previous outpatient visit. Previous MRI showed enlarged ventricles bilaterally but "does not appear to be normal pressure hydrocephalus "per neurology. 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 Ordered MRI yesterday if concerning consider consulting neurology. MRI was unable to be performed yesterday as patient was moving too much in order to get an accurate image. Consider giving small dose of Ativan half an hour prior to study At this time not likely due to cold medications as this would have left his system by now Differential includes normal pressure hydrocephalus versus delirium on top of baseline dementia versus vascular dementia versus progression of baseline dementia (2) Anemia: Plan: Hemoglobin 8.5 upon admission, with most recent being 8.7. Heme-negative in the ED Iron panel revealed low iron, normal TIBC, low ferritin, and normal transferrin Patient has not noted any recent blood in stool Patient has had a few weeks of diarrhea Follow serial CBC with differential and chemistry profile every morning Protonix discontinued as no active GI bleed is present. Gastroenterology has signed off on this patient as anemia is stable and not acute. (3) GAVE (gastric antral vascular ectasia): Plan: See above (4) Hypertension: Plan: Hold aspirin, amlodipine, metoprolol succinate and HCTZ Hydralazine 10 mg IV every 4 hours. Systolic blood pressure greater than 160 (5) Anxiety: Plan: Anxiety/mild cognitive impairment- Resume donepezil and escitalopram after GI status cleared (6) MCI (mild cognitive impairment): Plan: See above (7) Hyperlipidemia: Plan: Hold atorvastatin (8) Prostate cancer: (2) Anemia: (3) GAVE (gastric antral vascular ectasia): (4) GERD (gastroesophageal reflux disease): (5) Hyperlipidemia: (6) MCI (mild cognitive impairment): Admission and Anticipated Discharge Date Admission Date: March 22, 2021 Supervising Physician Co-Signing Physician Notes I also saw the patient along with the resident physician and confirmed goldberg portions of the history and physical examination. I agree with the impression and plan as noted in the resident documentation. He is again alert to his name only. 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 163/76, 98, 20, 36.6, 95% on room air Alert, oriented x1 Data Hemoglobin 8.7 Sodium 142, potassium 3.4 BUN 19, creatinine 1.05 Blood cultures dated 03/22/2021 showed no growth at 48 hours Assessment and Plan Altered mental status in the setting of mild cognitive impairment No clear cause for his altered mental status. No evidence of infection No metabolic abnormalities No culprit medications Could simply be progression of his dementia and delirium secondary to hospitalization, although this would represent rather rapid progression of his dementia if he was characterized as mild cognitive impairment 3 months ago. MRI was attempted today but he would not hold still/agitated Will try again with low-dose lorazepam Consider neurology consultation Anemia, iron deficiency Stable, may be more chronic in nature Gastroenterology consultation appreciated We will begin to replete iron Subjective Patient seen at bedside. No meaningful HPI or review of systems obtainable due to mental status. Review of Systems Review of Systems: Unobtainable due to cognitive status Physical Exam Constitutional: well developed, well nourished, + obese and cooperative; no acute distress Eyes: + anicteric sclerae Neck: normal visual inspection and trachea midline Respiratory: normal respiratory effort, lungs clear to auscultation Cardiovascular: RRR, no murmur, no edema Gastrointestinal (Abdomen): normal bowel sounds, soft, nontender, no hepatosplenomegaly Skin: no rashes, warm and dry Psychiatric: Orientation: oriented to person; + not oriented to place and + not oriented to time Eye Contact: + poor eye contact Thought Content: + preoccupation Results & Data Results & Data ([facility]) Vital Signs (Past 12 Hours) Vital Signs Temp Pulse Resp BP Pulse Ox 03/24/21 14:40 36.6 C 98 H 20 163/76 H 95 03/24/21 07:27 37.3 C 83 20 149/71 H 94 (1) Anemia Anemia type: unspecified type Qualified Code(s): D64.9 - Anemia, unspecified (2) AMS (altered mental status) Altered mental status type: disorientation Qualified Code(s): R41.0 - Disorientation, unspecified
[2021-03-24] MEDS ORDERED: LORazepam 0.5 MG TAB ONE (22:56)
[2021-03-25] MEDS ORDERED: GADOBUTROL 65ML VIAL IV ONE (03:41)
[2021-03-25 06:55] LABS: Basophils # (auto) 0.02 K/uL (0-0.2); Basophils % (auto) 0.2 %; Eosinophils # (auto) 0.01 K/uL (0-0.5); Eosinophils % (auto) 0.1 %; Hemoglobin 8.2 g/dL (14.0-18.0); Immature Granulocytes # (auto) 0.08 K/uL (0.00-0.02); Immature Granulocytes % (auto) 0.8 %; Lymphocytes # (auto) 1.24 K/uL (1.2-3.4); Lymphocytes % (auto) 11.9 %; Mean Corpuscular Hemoglobin 24.8 pg (25-34); Mean Corpuscular Hgb Conc 30.4 g/dL (32-36); Mean Corpuscular Volume 81.6 fL (80-100); Mean Platelet Volume 9.3 fL (7.4-10.4); Monocytes # (auto) 0.79 K/uL (0.11-0.59); Monocytes % (auto) 7.6 %; Neutrophils # (auto) 8.28 K/uL (1.4-6.5); Neutrophils % (auto) 79.4 %; Platelet Count 260 K/uL (130-400); RDW Coefficient of Variation 18.2 % (11.5-14.5); RDW Standard Deviation 54.3 fL (36.4-46.3); Red Blood Count 3.31 M/uL (4.7-6.1); White Blood Count 10.42 K/uL (4.8-10.8)
[2021-03-25 07:10] LABS: INR 1.1 (0.9-1.1); Partial Thromboplastin Time 27.2 Seconds (21.0-31.0); Prothrombin Time 11.2 Seconds (9.0-12.0)
[2021-03-25 07:23] LABS: Albumin Level 2.8 gm/dl (3.4-5.0); BUN Creatinine Ratio 19.3 (10-20); Calcium 8.5 mg/dl (8.5-10.1); Creatinine Clr Calc Pharmacy 61.6 ml/min; Est GFR (African American) 79.9 ml/min; Est GFR (Non-African American) 68.9 ml/min; Magnesium 2.5 mg/dl (1.8-2.4); Potassium 3.5 mmol/L (3.5-5.1)
[2021-03-25 07:36] LABS: Albumin Globulin Ratio 0.6 (0.9-2); Bilirubin,Total 0.7 mg/dl (0.2-1); Globulin 4.9 gm/dl (2.5-4.0); Total Protein 7.7 gm/dl (6.4-8.2)
--- NOTE | 2021-03-25 07:52 | Magnetic Resonance Report ---
Brain MRI WITH AND WITHOUT CONTRAST HISTORY: Altered mental status, previous brain aneurysms TECHNIQUE: Multiplanar multisequence MRI of the brain was performed both before and after the intrave nous administration of contrast. COMPARISON STUDY: Head CT 03/22/2021. Brain MRI 09/19/2017. FINDINGS: No areas restricted diffusion to suggest acute infarction. The midline structures are intac t. Mild periventricular white matter T2 hyperintensity remains unchanged. This favors chronic microva scular ischemic change. There is no mass, hematoma, midline shift. 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 Mild mucosal thickening within the paranasal sinuses with partial opacitie s of the ethmoid air cells. This has progressed. The mastoid air cells are clear. The orbits are unre markable. Old lacunar infarct within the matt/midbrain remains unchanged. Moderate ventriculomegaly r emains stable. Postcontrast sequences show no areas of abnormal enhancement. IMPRESSION: 1. No acute infarct or intracranial hemorrhage. 2. 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 3. 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 4. Stable volume loss and moderate ventriculomegaly. 5. Additional findings as described above. ACT 112: Negative or not required by law. Electronically signed by: Iron Aquino M.D. 03/25/2021 7:51 AM
[2021-03-25] MEDS: FERROUS SULFATE 325 MG TAB PO SCH ×2 (08:31→08:32)
[2021-03-25] MEDS: SODIUM CHLORIDE 0.9% 1000ML 1,000 ML IV SCH ×2 (12:05→22:21)
--- NOTE | 2021-03-25 16:23 | Hospitalist Progress Note ---
Date of Service March 25, 2021 Assessment & Plan (1) AMS (altered mental status): Plan: (1) Altered mental status Plan: Baseline mild cognitive impairment noted by neurology in previous outpatient visit. Previous MRI showed enlarged ventricles bilaterally but "does not appear to be normal pressure hydrocephalus "per neurology. 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 MRI revealed stable moderate ventriculomegaly. Neurology consulted. Patient will be seen tomorrow, 03/26. Consult made as infectious and metabolic causes have been ruled out as sources of increased confusion. At this time not likely due to cold medications as this would have left his system by now Differential includes normal pressure hydrocephalus versus delirium on top of baseline dementia versus vascular dementia versus progression of baseline dementia (2) Anemia: Plan: Hemoglobin 8.5 upon admission, with most recent being 8.2. Heme-negative in the ED Iron panel revealed low iron, normal TIBC, low ferritin, and normal transferrin Patient has not noted any recent blood in stool Patient has had a few weeks of diarrhea Follow serial CBC with differential and chemistry profile every morning Protonix discontinued as no active GI bleed is present. Gastroenterology has signed off on this patient as anemia is stable and not acute. (3) GAVE (gastric antral vascular ectasia): Plan: See above (4) Hypertension: Plan: Hold aspirin, amlodipine, metoprolol succinate and HCTZ Hydralazine 10 mg IV every 4 hours. Systolic blood pressure greater than 160 (5) Anxiety: Plan: Anxiety/mild cognitive impairment- Resume donepezil and escitalopram after GI status cleared (6) MCI (mild cognitive impairment): Plan: See above (7) Hyperlipidemia: Plan: Hold atorvastatin (8) Prostate cancer: (2) Anemia: (3) GAVE (gastric antral vascular ectasia): (4) GERD (gastroesophageal reflux disease): (5) Hyperlipidemia: (6) MCI (mild cognitive impairment): Admission and Anticipated Discharge Date Admission Date: March 22, 2021 Supervising Physician Co-Signing Physician Notes I also saw the patient along with the resident physician and confirmed goldberg portions of the history and physical examination. I agree with the impression and plan as noted in the resident documentation. He is again alert to his name only. He is a little bit more conversational today compared to yesterday. After carrying on a conversation a little longer, he is able to repeat the name of the hospital where he is currently at. 163/76, 98, 20, 36.6, 95% on room air Alert, oriented x1 Data Hemoglobin 8.2 Sodium 142, potassium 3.5 BUN 19, creatinine 1.01 Blood cultures dated 03/22/2021 showed no growth at 48 hours Assessment and Plan Altered mental status in the setting of mild cognitive impairment No clear cause for his altered mental status. No evidence of infection No metabolic abnormalities No culprit medications Could simply be progression of his dementia and delirium secondary to hospitalization, although this would represent rather rapid progression of his dementia if he was characterized as mild cognitive impairment 3 months ago. MRI was attempted yesterday but he would not hold still/agitated Will try again with low-dose lorazepam Consider neurology consultation Anemia, iron deficiency Stable, may be more chronic in nature Gastroenterology consultation appreciated We will begin to replete iron Subjective Patient seen at bedside. No meaningful HPI or review of systems obtainable due to mental status. Review of Systems Review of Systems: Unobtainable due to cognitive status Physical Exam Constitutional: well developed, well nourished, + obese, + altered mental status and cooperative; no acute distress Eyes: + anicteric sclerae Neck: normal visual inspection and trachea midline Respiratory: normal respiratory effort, lungs clear to auscultation Cardiovascular: RRR, no murmur, no edema Gastrointestinal (Abdomen): normal bowel sounds, soft, nontender, no hepatosplenomegaly Skin: no rashes, warm and dry Neurologic: moves all extremities Psychiatric: Orientation: oriented to person and cooperative; + not oriented to time Eye Contact: + poor eye contact Thought Content: + preoccupation Results & Data Results & Data ([facility]) Vital Signs (Past 12 Hours) Vital Signs Temp Pulse Resp BP Pulse Ox 03/25/21 07:18 36.6 C 80 22 171/76 H 91 (1) Anemia Anemia type: unspecified type Qualified Code(s): D64.9 - Anemia, unspecified (2) AMS (altered mental status) Altered mental status type: disorientation Qualified Code(s): R41.0 - Disorientation, unspecified
--- NOTE | 2021-03-26 07:58 | Neurology Consultation ---
Date of Consultation March 26, 2021 Assessment & Plan (1) AMS (altered mental status): (2) MCI (mild cognitive impairment): (3) Cerebral ventriculomegaly: (4) Gait disturbance: Patient was admitted with "altered mental status / confusion". Currently he has a mild underlying dementia but has no signs of delirium or encephalopathy today. On exam physically, he has an abnormal gait but is not atypical gait apraxia that would be seen in normal pressure hydrocephalus. It is not a Parkinson's gait either and he has no other Parkinson's features. With an underlying dementia, any viral illness could lead to a worsening, temporarily, of his mental status. In addition, I note he has a significant anemia, not present earlier this year, which would also tend to make his dementia worse. MRI of the brain shows considerable generalized atrophy with moderate diffuse ventriculomegaly. After reviewing films from 2017 and this hospitalization and consulting with Radiology, I am fairly convinced that his overall picture is not consistent with normal pressure hydrocephalus. His gait disturbance is noted. He does have some incontinence of urine but this is more of an urge incontinence and is likely related to his prostate issue and post radiation. Recommendations: 1. Obtain B12 and folate levels, as well as a Lyme antibody titer ( he is someone who likes to ramsay and fish in be outdoors) 2. Physical therapy to evaluate and treat 3. consider initiating memantine 10 milligrams a day for 1 month then 10 milligrams twice a day, in addition to the donepezil 5 milligrams a day. 4. I see no need for additional Neurologic testing or treatment at this time otherwise. 5. evaluate and treat anemia as you are doing 6. Follow up with Dr. Hernandes as an outpatient. Overall, I spent a total of 100 minutes with this case including review of records, review of MRI films, direct evaluation the patient bedside, and discussion of the case with the patient and RN at bedside, Dr. Mann in Radiology, and Dr. Awan including differential diagnosis and treatment options. History of Present Illness Reason for Consultation: Patient is an 80-year-old, who I was asked to see at the request of Dr. Sailnas, for neurologic consultation regarding altered mental status and abnormal MRI of the brain Requesting Physician: Dr. Salinas Attending Physician: Dwight Awan DO History of Present Illness Patient has a history of hypertension, dyslipidemia, and anxiety. He was 1st seen by Neurology in September of 2016 for the problems of memory loss and balance issues Which had been going on for about the last year. On exam he had a slightly wide-based gait with no shuffling. In October of 2016 he was admitted and seen by Dr. Hernandes for some worsening balance and left-sided weakness. MRI of the brain showed a tiny right lentiform nucleus acute stroke. He improved nicely was put on 81 milligram aspirin tablet daily which she is still taking. MRI at that time also showed moderate atrophy and moderate ventriculomegaly. It was not felt he had normal pressure hydrocephalus. Dr. Hernandes did believe he bit of an apraxic gait however. 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 The patient continues to have cognitive and memory problems along with some gait issues. Repeat MRIs have been stable over time. Last saw Dr. Hernandes in November of 2020 and he was clinically stable. Donepezil was initiated but he could not tolerate over 5 daily Patient was admitted on March 22 for new onset confusion with cough weakness several days. Laboratory studies have revealed a fairly significant anemia ( change from earlier this year). Chem profile, ammonia, TSH been unremarkable. AST was slightly elevated. MRI of the brain revealed no acute stroke. The tiny aneurysms and basilar stenosis the same as the previous study in 2018 (which was the same is the original studies 2017). In addition the ventriculomegaly atrophy were the same as 2018 as her mild old small vessel ischemic changes. There is still concern that this patient may have normal pressure hydrocephalus. the patient himself denies any pain or headaches ( although he has a bit of sore throat and congestion. He tires easily. He does know that he has some walking and balance problems and he can fall. These have been particularly significant over the last year or 2. he knows his memory is not as good as it used to be but thinks he is "okay". He has some urge incontinence. He does have a history of prostate cancer post radiation. I reviewed the MRI films from March 25 with the once from [address] Mann in Radiology. We are certain that there is no significant change in the amount of atrophy and ventriculomegaly over the last 4-5 years and that the ventriculomegaly is likely secondary to the atrophy. Allergies Allergy/AdvReac Type Severity Reaction Status Date / Time No Known Allergies Allergy Verified 03/22/21 07:40 Home Medications Medication Instructions Recorded Confirmed Type amlodipine 10 mg tablet 10 mg PO QAM #30 tab 05/13/20 03/22/21 Rx ascorbic acid (vitamin C) 500 mg 500 mg PO QAM #30 tab 05/13/20 03/22/21 Rx tablet (Vitamin C) aspirin 81 mg tablet,delayed 81 mg PO QAM #30 tab 05/13/20 03/22/21 Rx release (Aspirin Low Dose) atorvastatin 40 mg tablet 40 mg PO QPM #30 tab 05/13/20 03/22/21 Rx docusate sodium 100 mg tablet 100 mg PO QAM #30 tab 05/13/20 03/22/21 Rx escitalopram oxalate 10 mg tablet 10 mg PO QPM #30 tab 05/13/20 03/22/21 Rx hydrochlorothiazide 12.5 mg tablet 12.5 mg PO QAM #30 tab 05/13/20 03/22/21 Rx metoprolol succinate 25 mg 25 mg PO QAM #30 tab 05/13/20 03/22/21 Rx tablet,extended release 24 hr ckkggdoz-nqd-yohrg acid 0.4 1 tab PO QAM #30 tab 05/13/20 03/22/21 Rx mg-lycopene 300 mcg-lutein 250 mcg tablet (Centrum Silver) pantoprazole 40 mg tablet,delayed 40 mg PO QAM #30 tab 05/13/20 03/22/21 Rx release donepezil 5 mg tablet 5 mg PO HS #90 tab 12/01/20 03/22/21 Rx Patient History Medical History Acute chest wall pain Anemia Anemia due to acute blood loss Anxiety Basilar artery thrombosis Carcinoma of prostate Carotid aneurysm, left Chronic cough Fatigue Fe deficiency anemia GAVE (gastric antral vascular ectasia) GERD (gastroesophageal reflux disease) GERD without esophagitis GI bleed Hiatal hernia History of colon polyps Hyperlipidemia Hypertension Impacted cerumen of both ears Ischemic stroke Malignant neoplasm of prostate Occlusion and stenosis of basilar artery Prostate cancer Shortness of breath Small aneurysm of supraclinoid carotid artery Stroke 2017--no deficits, follows with Dr. 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 Beliefs That Will Affect Care: None marital status: Current Living Situation: Spouse Feels Safe at Home: Yes Assistive Devices: Walker Review of Systems Constitutional: + fatigue and + weakness; no fever Eyes: no diplopia, no eye pain and no worsening vision Ear, Nose, Mouth, Throat: + nasal congestion and + sore throat; no ear pain, no tinnitus, no hearing loss, no dizziness, no snoring, no hoarseness and no dysphagia Respiratory: no cough and no dyspnea Cardiovascular: no chest pain, no palpitations and no lightheadedness Gastrointestinal: no abdominal pain, no nausea and no vomiting Musculoskeletal: + neck pain; no back pain, no radicular pain, no joint pain and no myalgia Integumentary: no rash and no lesions Neurologic: + gait abnormality and + memory loss; no localized weakness, no generalized weakness, no tingling, no numbness, no tremor(s), no abnormal movements, no headache(s), no abnormal speech and no confusion Psychiatric: + anxiety; no depression, no irritability, no difficulty concentrating, no confusion and no hallucinations Endocrine: no fatigue and no flushing Hematologic / Lymphatic: no easy bleeding and no easy bruising Allergy / Immunological: no urticaria and no problem reported Exam (Neuro) Physical Exam: The patient is right-handed. The patient is awake, alert, and attentive. Speech is normal without any aphasia or dysarthria. The patient can name objects, repeat phrases, and has normal spontaneous speech. Mentation and thought processes are reasonable and is mood and affect are normal and appropriate. His attention and concentration is. He knew his name, where he was, his age, the month, but did not know the day or the date. He knew long-term memory questions about his schooling and jobs. The discs are sharp with positive venous pulsations bilaterally. Pupils are 3 mm bilaterally and reactive to light. Extraocular eye muscles are intact without nystagmus. Visual acuity and visual simmons seem normal grossly to confrontation. There are no deficits to sensation in the face in all 3 distributions of the fifth cranial nerve bilaterally. Corneal reflexes are positive bilaterally. Facial strength and symmetry was normal bilaterally. Hearing seems normal bilaterally. Palate moves well without asymmetry. There is normal sternocleidomastoid and trapezius (shoulder shrug) strength bilaterally. Tongue is midline with good strength bilaterally. 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 Cervical, thoracic, and lumbar spine are nontender to palpation. Gait is relatively narrow based although the right foot turns slightly compared to the is straight for a. He walks slowly and with a limp favoring the right leg. His turns are slow and en bloc, but he does not have a true shuffling or festinating gait. Stance with feet together and eyes open is reasonable. When he walks he tends to lean towards the right. With outstretched arms there is no drift. There are no resting, postural, or action tremors. There is no ataxia with finger to nose testing. There is good facility in the hands. No other abnormal involuntary movements are noted. Motor strength is 5/5 diffusely in the arms bilaterally including deltoids, biceps, triceps, brachioradialis, wrist flexors and extensors, automobile and property underwriter, and intrinsic hand muscles. Motor strength is 5/5 diffusely in the legs bilaterally including hip flexors, quadriceps, hamstrings, gastrocnemius, tibialis anterior, tibialis posterior, and Peroneii muscles. Toe extensors are normal and there is good bulk in the extensor digitorum brevis muscles bilaterally. The limbs have good tone without rigidity or spasticity. There is no atrophy n oted in the muscles. Muscle bulk is normal, there is no tenderness to palpation, no myotonia to percussion, and no fasciculations seen. Sensory examination is intact to touch and pin throughout all 4 limbs diffusely. Reflexes are 1/4 in the biceps, triceps, brachioradialis, quadriceps, and Achilles tendons bilaterally. There is no clonus bilaterally. Toes are downgoing with plantar stimulation bilaterally. Peripheral pulses are present and of normal quality distally in all 4 limbs. There is no peripheral edema noted in the limbs. Results & Data ([facility]) Vital Signs (Past 12 Hours) Vital Signs Temp Pulse Resp BP Pulse Ox 03/26/21 07:39 37.1 C 83 22 177/78 H 95 PG Care Time/CCT Total # of Minutes Spent Total Time Spent with Patient: Total time spent is greater than 50% in coordination of care (as documented) at patient's floor/unit and/or counseling patient: Coding Level of Care Code 19969 Initial Inpt Care Lvl 3 Diagnoses AMS (altered mental status) R41.0 Altered mental status type: disorientation MCI (mild cognitive impairment) G31.84 Cerebral ventriculomegaly G93.89 Gait disturbance R26.9 Time Spent (min) 100 Comment Add modifiers as able (1) AMS (altered mental status) Altered mental status type: disorientation Qualified Code(s): R41.0 - Disorientation, unspecified
[2021-03-26 11:11] LABS: Lyme Ab IgG w/WB Rflx Negative (Negative); Lyme Ab IgM w/WB Rflx Negative (Negative)
[2021-03-26 11:16] LABS: Folate (Folic Acid) > 20.00 ng/ml (>5.38); Vitamin B12 1198 pg/ml (193-986)
--- NOTE | 2021-03-26 17:50 | Hospitalist Progress Note ---
Date of Service March 26, 2021 Assessment & Plan (1) AMS (altered mental status): Plan: (1) Altered mental status Plan: Baseline mild cognitive impairment noted by neurology in previous outpatient visit. Previous MRI showed enlarged ventricles bilaterally but "does not appear to be normal pressure hydrocephalus "per neurology. 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 MRI revealed stable moderate ventriculomegaly. Neurology consulted. Discussed with Dr. Barrientos. Per him and radiology, no signs of normal pressure hydrocephalus, likely just cerebral atrophy. Unchanged from last MRI. Differential includes delirium on top of baseline dementia versus vascular dementia versus progression of baseline dementia versus waxing and waning of baseline dementia (2) Anemia: Plan: Hemoglobin 8.5 upon admission, with most recent being 8.2. Heme-negative in the ED Iron panel revealed low iron, normal TIBC, low ferritin, and normal transferrin, transfused 200 mg of iron sulfate. Patient has not noted any recent blood in stool Patient has had a few weeks of diarrhea Follow serial CBC with differential and chemistry profile every morning Protonix discontinued as no active GI bleed is present. Gastroenterology has signed off on this patient as anemia is stable and not acute. (3) GAVE (gastric antral vascular ectasia): Plan: See above (4) Hypertension: Plan: Hold aspirin, metoprolol succinate, and HCTZ Discontinue hydralazine Restart amlodipine tomorrow a.m. (5) Anxiety: Plan: Anxiety/mild cognitive impairment- Continue to hold donepezil and escitalopram (6) MCI (mild cognitive impairment): Plan: See above (7) Hyperlipidemia: Plan: Hold atorvastatin (8) Prostate cancer: (2) Anemia: (3) GAVE (gastric antral vascular ectasia): (4) GERD (gastroesophageal reflux disease): (5) Hyperlipidemia: (6) MCI (mild cognitive impairment): Admission and Anticipated Discharge Date Admission Date: March 22, 2021 Supervising Physician Co-Signing Physician Notes Patient seen and examined with PGY-1 Dr. Salinas. Agree wit history, exam findings, assessment and plan as outlined. In brief, Mr. Correia is an 80 year old male with history of prostate cancer, basilar artery thrombosis, mild cognitive impairment, hypertension, asthma HLD, anxiety, GERD admitted with altered mental status and persistent diarrhea. His is at the bedside and feels that he is much closer to his baseline. No pain. Feels well. VS and nursing notes reviewed. Well appearing. Heart with regular rate and rhythm. Lungs clear to auscultation throughout. Labs and imaging reviewed. 1. AMS. Ruled out infectious and metabolic etiologies. Neurology consulted--likely secondary to underlying dementia. Can consider starting yvonne ntine 10mg daily then increase to BID after one month with donepezil 5mg. Discussed case with Dr. Barrientos, neurology, and agree that doing a deinifitive test for NPH is unlikely to be of benefit since Mr. Correia is not a great shunt candidate. Recommendations appreciated. 2. Anemia. Hgb 8.5 on admission. Heme negative stool on admission, iron studies consistent with iron deficiency. Started initially on oral iron, but given the very low ferritin and low serum iron, start IV iron dosing to build up iron stores to aid in red blood cell production. 3. HTN. Restarting amlodipine; continue to hold metoprolol succinate and HCTZ and will add back as blood pressures allow. Subjective Patient seen at bedside with present today. Patient's mentation is much improved today and is aware of where he is, who he is, but is not aware of the year and states that it is 2011. He is very pleasant this morning and is much more aware of his situation as well as his past medical history and is describing his watermelon stomach/gave. Stating that he is overall doing well today and has no pain that he can report. He is very grateful that someone is e xplaining his disposition and seems to be overall pleased with his care. It was explained to the that neurology had seen him and reviewed imaging and at this time there seems to be no metabolic, infectious, iatrogenic, or neurological cause for the dramatic change in mental status. It was explained that neurology seems to think that this may be the natural waxing and waning of his dementia and his anemia may be exacerbating his symptoms. There is also asked that the believes she would be able to manage her at home or if it would be better for him to go to a care home facility. At this time the agrees that it would be best for him to get some physical therapy and be placed at a SNF that he can be better taking care of. Patient denies any complaints. Review of Systems Review of Systems: All systems reviewed & are unremarkable except as noted in HPI & below Physical Exam Constitutional: well developed, well nourished and + obese; no acute distress Eyes: + anicteric sclerae Neck: normal visual inspection Respiratory: normal respiratory effort, lungs clear to auscultation Cardiovascular: RRR, no murmur, no edema Neurologic: moves all extremities Psychiatric: Orientation: oriented to person, oriented to place and cooperative; + not oriented to time Eye Contact: good eye contact Affect: euthymic affect Results & Data Results & Data ([facility]) Vital Signs (Past 12 Hours) Vital Signs Temp Pulse Resp BP BP Pulse Ox 03/26/21 14:07 36.5 C 86 18 170/67 H 96 03/26/21 07:39 37.1 C 83 22 177/78 H 95 Resident Activity Tracking Resident Involvement: Resident Care Provided Care Provided: Adult Hospital Medicine (1) Anemia Anemia type: unspecified type Qualified Code(s): D64.9 - Anemia, unspecified (2) AMS (altered mental status) Altered mental status type: disorientation Qualified Code(s): R41.0 - Disorientation, unspecified
[2021-03-26] MEDS ORDERED: IRON SUCROSE 200 MG in 0.9 % SODIUM CHLORIDE 100 ML IV ONE (18:00)
--- NOTE | 2021-03-27 07:44 | Neurology Progress Note ---
Date of Service March 27, 2021 Assessment & Plan (1) AMS (altered mental status): (2) MCI (mild cognitive impairment): (3) Cerebral ventriculomegaly: (4) Gait disturbance: Plan: Patient was admitted 03/22/2021, with "altered mental status / confusion". Currently he has a mild underlying dementia but has no signs of delirium or encephalopathy yesterday or today. On exam physically, he has an abnormal gait but is not a typical gait apraxia that would be seen in normal pressure hydrocephalus. It is not a Parkinson's gait either and he has no other Parkinson's features. With an underlying dementia, any viral illness could lead to a worsening, temporarily, of his mental status. In addition, I note he has a significant anemia, not present earlier this year, which would also tend to make his dementia worse. MRI of the brain showed considerable generalized atrophy with moderate diffuse ventriculomegaly. After reviewing films from 2017 and this hospitalization and consulting with Radiology, I am fairly convinced that his overall picture is not consistent with normal pressure hydrocephalus. His gait disturbance is noted. He does have some incontinence of urine but this is more of an urge incontinence and is likely related to his prostate issue and post radiation. Recommendations: 1. Physical therapy to evaluate and treat 2. consider initiating memantine 10 milligrams a day for 1 month then 10 milligrams twice a day, in addition to the donepezil 5 milligrams a day. 3. I see no need for additional Neurologic testing or treatment at this time otherwise. 4. evaluate and treat anemia as you are doing 5. Please contact me if I can be of further assistance on this case, otherwise follow up with Dr. Hernandes as an outpatient. Overall, I spent a total of 25 minutes with this case including review of records, direct evaluation the patient bedside, and discussion of the case with the patient and RN at bedside, Admission and Anticipated Discharge Date Admission Date: March 22, 2021 Subjective Patient feels quite good, without any pain or headache. He recognized me from yesterday but did not remember my name. According to the RN, who was in the room with me, patient is more interactive than yesterday. B12 and folate were unremarkable. Lyme titers are negative. Blood pressure is 172/76. He is afebrile. Results & Data ([facility]) Vital Signs (Past 12 Hours) Vital Signs Temp Pulse Resp BP BP Pulse Ox 03/27/21 07:30 36.8 C 74 18 172/76 H 93 03/26/21 23:01 37.1 C 78 20 163/71 H 169/71 H 94 Exam (Neuro) Physical Exam: He is awake and alert. Speech is without aphasia or dysarthria. Normal affect appropriate. He is pleasant cooperative. Mental status and cognitive abilities about the same as yesterday , when I examined him. Extraocular muscles are intact without nystagmus. There is no facial droop, tremor, or ataxia or other abnormal involuntary movements. strength is symm etrical in the limbs. PG Care Time/CCT Total # of Minutes Spent Total Time Spent with Patient: Total time spent is greater than 50% in coordination of care (as documented) at patient's floor/unit and/or counseling patient: Coding Level of Care Code 98083 Subseq Hosp Care Lvl 2 Diagnoses AMS (altered mental status) R41.0 Altered mental status type: disorientation MCI (mild cognitive impairment) G31.84 Cerebral ventriculomegaly G93.89 Gait disturbance R26.9 Time Spent (min) 25 (1) AMS (altered mental status) Altered mental status type: disorientation Qualified Code(s): R41.0 - Disorientation, unspecified
[2021-03-27] MEDS: amLODIPine BESYLATE 5 MG TAB PO SCH (08:21)
[2021-03-27] MEDS: FERROUS SULFATE 325 MG TAB PO SCH (08:22)
--- NOTE | 2021-03-27 08:30 | Hospitalist Progress Note ---
Date of Service March 27, 2021 Assessment & Plan (1) AMS (altered mental status): Plan: 80-year-old male with a PMHx of prostate cancer, basilar artery thrombosis, syncope, facial contusion, mild cognitive impairment, hypertension, asthma, hyperlipidemia, anxiety, GERD, GAVE, ischemic stroke, prostate cancer, supraclinoid carotid artery aneurysm, hiatal hernia, GI bleed, GERD without esophagitis, iron deficiency anemia, and anemia due to acute blood loss presen landry with AMS. 1) Altered mental status, resolving Likely waxing and waning in the setting of known mild cognitive impairment. -Previous MRI: enlarged ventricles bilaterally but "does not appear to be normal pressure hydrocephalus" per neurology, also old stable aneurysms. -MRI (03/25): stable moderate ventriculomegaly. -Neurology consult: no signs of normal pressure hydrocephalus, likely just ce rebral atrophy. Unchanged from last MRI. -restarted home donepezil 5mg daily -consider starting memantine 10mg qd x1 month followed by 10mg BID -Awaiting SNF placement (2) Anemia, stable -Hgb 8.5 upon admission, 9.0 (03/27) -Heme-negative in ED -Iron panel: low iron, normal TIBC, low ferritin, and normal transferrin, received 200 mg of iron sucrose. Will need recheck of his iron labs in 2-3 months. - continue with oral iron -Recent few weeks of diarrhea, denies blood in stool -Protonix discontinued as no active GI bleed is present. -GI signed off -cont aspirin since Hgb stable -Trend H&H 3) GAVE (gastric antral vascular ectasia): - chronic, stable. No bleeding. 4) Hypertension -discontinued hydralazine -restarted metoprolol -cont. amlodipine -cont. hold HCTZ, consider restarting if BP allows 5) Anxiety: - restarted escitalopram -6) Hyperlipidemia: -restarted home atorvastatin DVT ppx: SCDs FEN/GI: regular Code Status: DNR/DNI Dispo: awaiting SNF placement (2) Anemia: (3) GAVE (gastric antral vascular ectasia): (4) GERD (gastroesophageal reflux disease): (5) Hyperlipidemia: (6) MCI (mild cognitive impairment): Admission and Anticipated Discharge Date Admission Date: March 22, 2021 Supervising Physician Co-Signing Physician Notes Patient seen and examined with PGY-1 Dr. Yanez. Agree wit history, exam findings, assessment and plan as outlined. In brief, Mr. Correia is an 80 year old male with history of prostate cancer, basilar artery thrombosis, mild cognitive impairment, hypertension, asthma HLD, anxiety, GERD admitted with altered mental status and persistent diarrhea. Feels well. No complaints. VS and nursing notes reviewed. Well appearing. Heart with regular rate and rhythm. Lungs clear to auscultation throughout. Labs and imaging reviewed. 1. AMS. Ruled out infectious and metabolic etiologies. Neurology consulted--likely secondary to underlying dementia. Starting memantine 10mg daily then increase to BID after one month . Restarted home donepezil 5mg daily. 2. Anemia. Hgb 8.5 on admission. Heme negative stool on admission, iron studies consistent with iron deficiency. Started initially on oral iron, but given the very low ferritin and low serum iron, start IV iron dosing to build up iron stores to aid in red blood cell production. 3. HTN. Restarting amlodipine and metoprolol; continue to hold HCTZ and will add back as blood pressures allow. Other chronic issues are stable and home medications continued. Dispo: medically stable for discharge; awaiting placement. Subjective Saw patient at bedside this morning. Does recall a lot of information expressed to him yesterday and where we plan on sending him after discharge. Discussed the idea of adding memantine and donepezil to his medication regimen and he is okay with it. Says he got out of bed once without any complaints. Does complain of a mild sore throat which is worse at night but has had this since for the last couple of days. Review of Systems Review of Systems: All systems reviewed & are unremarkable except as noted in HPI & below Constitutional: no fever, no chills and no fatigue Respiratory: no cough and no dyspnea Cardiovascular: no chest pain and no palpitations Physical Exam Constitutional: well developed, well nourished and + obese; no acute distress Eyes: + anicteric sclerae Neck: normal visual inspection and trachea midline Respiratory: normal respiratory effort, lungs clear to auscultation Cardiovascular: RRR, no murmur, no edema Gastrointestinal (Abdomen): normal bowel sounds, soft, nontender, no hepatosplenomegaly Neurologic: moves all extremities Psychiatric: Orientation: oriented x 3 and cooperative Eye Contact: good eye contact Affect: euthymic affect Results & Data Results & Data ([facility]) Vital Signs (Past 12 Hours) Vital Signs Temp Pulse Resp BP BP Pulse Ox 03/27/21 07:30 36.8 C 74 18 172/76 H 93 03/26/21 23:01 37.1 C 78 20 163/71 H 169/71 H 94 Resident Activity Tracking Resident Involvement: Resident Care Provided Care Provided: Adult [facility] (1) Anemia Anemia type: unspecified type Qualified Code(s): D64.9 - Anemia, unspecified (2) AMS (altered mental status) Altered mental status type: disorientation Qualified Code(s): R41.0 - Disorientation, unspecified
[2021-03-27 10:25] LABS: Hematocrit (blood only) 30.1 % (42-52)
[2021-03-27] MEDS: ATORVASTATIN 40 MG TAB PO SCH (18:47)
[2021-03-27] MEDS: DONEPEZIL HCL 5 MG TAB PO SCH (20:34)
[2021-03-28] MEDS: amLODIPine BESYLATE 5 MG TAB PO SCH (08:00)
[2021-03-28] MEDS: METOPROLOL SUCC 25MG EXT REL TAB PO SCH (08:01)
[2021-03-28] MEDS: ASPIRIN 81 MG ECTAB PO SCH (08:01)
[2021-03-28] MEDS: FERROUS SULFATE 325 MG TAB PO SCH (08:01)
[2021-03-28] MEDS: ESCITALOPRAM OXALATE 10 MG TAB PO SCH (08:02)
[2021-03-28] MEDS: ATORVASTATIN 40 MG TAB PO SCH (08:02)
--- NOTE | 2021-03-28 10:03 | Hospitalist Progress Note ---
Date of Service March 28, 2021 Assessment & Plan (1) AMS (altered mental status): Plan: 80-year-old male with a PMHx of prostate cancer, basilar artery thrombosis, syncope, facial contusion, mild cognitive impairment, hypertension, asthma, hyperlipidemia, anxiety, GERD, GAVE, ischemic stroke, prostate cancer, supraclinoid carotid artery aneurysm, hiatal hernia, GI bleed, GERD without esophagitis, iron deficiency anemia, and anemia due to acute blood loss presen landry with AMS. 1) Altered mental status, resolving -ddx delirium on top of baseline dementia versus vascular dementia versus progression of baseline dementia versus waxing/waning of baseline dementia -Baseline mild cognitive impairment noted by neurology in previous outpatient visit. -Previous MRI: enlarged ventricles bilaterally but "does not appear to be normal pressure hydrocephalus" per neurology, also old stable aneurysms. -MRI (03/25): stable moderate ventriculomegaly. -Neurology consult: no signs of normal pressure hydrocephalus, likely just cerebral atrophy. Unchanged from last MRI. -cont. home donepezil 5mg daily -started memantine, 10mg qd x1 month followed by 10mg BID -Awaiting SNF placement, could be as early as (03/29) per CM (2) Anemia, stable -Hgb 8.5 upon admission, 8.8 (03/28) -Heme-negative in ED -Iron panel: low iron, normal TIBC, low ferritin, and normal transferrin, transfused 200 mg of iron sulfate. -Recent few weeks of diarrhea, denies blood in stool -Protonix discontinued as no active GI bleed is present. -GI signed off -cont aspirin since Hgb stable 3) GAVE (gastric antral vascular ectasia): -See above 4) Hypertension -discontinued hydralazine -cont. metoprolol -cont. amlodipine -cont. hold HCTZ, consider restarting if BP allows (isolated systolic HTN, be cautious of diastolic drop) 5) Anxiety: -cont. home donepezil and escitalopram 6) Mild cognitive impairment -See above -7) Hyperlipidemia: -cont. home atorvastatin DVT ppx: SCDs FEN/GI: regular Code Status: DNR/DNI Dispo: awaiting SNF placement (2) Anemia: (3) GAVE (gastric antral vascular ectasia): (4) GERD (gastroesophageal reflux disease): (5) Hyperlipidemia: (6) MCI (mild cognitive impairment): Admission and Anticipated Discharge Date Admission Date: March 22, 2021 Supervising Physician Co-Signing Physician Notes Patient seen and examined with PGY-1 Dr. Yanez. Agree wit history, exam findings, assessment and plan as outlined. In brief, Mr. Correia is an 80 year old male with history of prostate cancer, basilar artery thrombosis, mild cognitive impairment, hypertension, asthma HLD, anxiety, GERD admitted with altered mental status and persistent diarrhea. Feels well. No complaints. VS and nursing notes reviewed. Well appearing. Pall conjunctivia. Heart with regular rate and rhythm. No edema. Nail beds are pale. Lungs clear to auscultation throughout. Labs and imaging reviewed. 1. AMS. Ruled out infectious and metabolic etiologies. Neurology consulted--likely secondary to underlying dementia. Starting memantine 10mg daily then increase to BID after one month . Restarted home donepezil 5mg daily. 2. Anemia. Hgb 8.5 on admission. Heme negative stool on admission, iron studies consistent with iron deficiency. Started initially on oral iron, but given the very low ferritin and low serum iron, start IV iron dosing to build up iron stores to aid in red blood cell production. Follow anemia. Will need recheck of iron profile, including a ferritin, in 2-3 months. 3. HTN. Restarting amlodipine and metoprolol; continue to hold HCTZ and will add back as blood pressures allow. Other chronic issues are stable and home medications continued. Dispo: medically stable for discharge; awaiting placement. Subjective Patient seen at bedside this morning. Recalls where he is going after discharge. He understands he needs further conditioning as he lost his "zip." Ambulating to bathroom without complaints. Will try to sit in chair while eating today. Otherwise no acute complaints. Spoke with his daughter Pita about starting memantine for dementia. She agrees with plan. Review of Systems Constitutional: no fever, no chills and no fatigue Respiratory: no cough and no dyspnea Cardiovascular: no chest pain and no palpitations Physical Exam Constitutional: well developed, well nourished and + obese; no acute distress Eyes: + anicteric sclerae + conjunctival pallor ENMT: Throat: uvula midline Neck: normal visual inspection and trachea midline Respiratory: normal respiratory effort, lungs clear to auscultation Cardiovascular: RRR, no murmur, no edema nail beds are pale appearing Gastrointestinal (Abdomen): normal bowel sounds, soft, nontender, no hepatosplenomegaly Neurologic: moves all extremities Psychiatric: Orientation: oriented x 3 and cooperative Eye Contact: good eye contact Affect: euthymic affect Results & Data Results & Data ([facility]) Vital Signs (Past 12 Hours) Vital Signs Temp Pulse Resp BP BP Pulse Ox 03/28/21 06:56 37.1 C 77 18 182/70 H 173/75 H 94 Resident Activity Tracking Resident Involvement: Resident Care Provided Care Provided: Adult Hospital Medicine (1) Anemia Anemia type: unspecified type Qualified Code(s): D64.9 - Anemia, unspecified (2) AMS (altered mental status) Altered mental status type: disorientation Qualified Code(s): R41.0 - Disorientation, unspecified
[2021-03-28 11:28] LABS: Hematocrit (blood only) 29.2 % (42-52); Hemoglobin 8.8 g/dL (14.0-18.0)
[2021-03-28] MEDS ORDERED: MEMANTINE HCL 10 MG TAB PO ONE (13:52)
[2021-03-28] MEDS: DONEPEZIL HCL 5 MG TAB PO SCH (19:15)
[2021-03-29] MEDS: METOPROLOL SUCC 25MG EXT REL TAB PO SCH (08:13)
[2021-03-29] MEDS: ATORVASTATIN 40 MG TAB PO SCH (08:13)
[2021-03-29] MEDS: ASPIRIN 81 MG ECTAB PO SCH (08:13)
[2021-03-29] MEDS: ESCITALOPRAM OXALATE 10 MG TAB PO SCH (08:14)
[2021-03-29] MEDS: FERROUS SULFATE 325 MG TAB PO SCH (08:14)
[2021-03-29] MEDS: MEMANTINE HCL 10 MG TAB PO SCH (08:14)
[2021-03-29] MEDS: amLODIPine BESYLATE 5 MG TAB PO SCH (08:14)
[2021-03-29] MEDS ORDERED: MEMANTINE HCL 10 MG TAB PO SCH (09:00)
[2021-03-29 10:14] LABS: Hematocrit (blood only) 30.9 % (42-52); Hemoglobin 9.3 g/dL (14.0-18.0)
--- NOTE | 2021-03-29 19:56 | Hospitalist Progress Note ---
Date of Service March 29, 2021 Assessment & Plan (1) AMS (altered mental status): Plan: 80-year-old male with a PMHx of prostate cancer, basilar artery thrombosis, syncope, facial contusion, mild cognitive impairment, hypertension, asthma, hyperlipidemia, anxiety, GERD, GAVE, ischemic stroke, prostate cancer, supraclinoid carotid artery aneurysm, hiatal hernia, GI bleed, GERD without esophagitis, iron deficiency anemia, and anemia due to acute blood loss present ed with AMS. 1) Altered mental status - RESOLVED -Baseline mild cognitive impairment noted by neurology in previous outpatient visit. -- No infectious etiology found -- CXR with unchanged mild right lower lung interstitial thickening opacity which is unchanged from April 2020 - no leukocytosis or fever and will defer Abx at this time -Previous MRI: enlarged ventricles bilaterally but "does not appear to be normal pressure hydrocephalus" per neurology, also old stable aneurysms. -MRI (03/25): stable moderate ventriculomegaly. -Neurology consult: no signs of normal pressure hydrocephalus, likely just cerebral atrophy. Unchanged from last MRI. -cont. home donepezil 5mg daily -started memantine, 10mg qd x1 month followed by 10mg BID (will need dose increase on April 28 2021) -Awaiting SNF placement, could be as early as (03/29) per CM (2) Anemia, stable -Hgb 8.5 upon admission, and up to 9.3 currently -Heme-negative in ED -Iron panel: low iron, normal TIBC, low ferritin, and normal transferrin, transfused 200 mg of iron sulfate. -- Cannot seem to locate in EMR how many doses - will see if pharmacy can see how many doses -Recent few weeks of diarrhea, denies blood in stool -Protonix discontinued as no active GI bleed is present. -GI signed off - can follow as outpatient -cont aspirin since Hgb stable - Continue ferrous sulfate oral 3) GAVE (gastric antral vascular ectasia): -See above 4) Hypertension -discontinued hydralazine -cont. metoprolol -cont. amlodipine -cont. hold HCTZ, consider restarting if BP allows (isolated systolic HTN, be cautious of diastolic drop) 5) Anxiety: -cont. home donepezil and escitalopram 6) Mild cognitive impairment -See above -7) Hyperlipidemia: -cont. home atorvastatin 8) Renal Lesion - CT from 03/22 - 1.3 cm hyperdense L renal lesion - could reflect hyperdense cyst or small solid renal lesion - follow-up nonemergent renal U/S recommended and likely can order tomorrow to further assess Dispo: awaiting SNF placement; discussed with daughter at bedside (2) Anemia: (3) GAVE (gastric antral vascular ectasia): (4) GERD (gastroesophageal reflux disease): (5) Hyperlipidemia: (6) MCI (mild cognitive impairment): Admission and Anticipated Discharge Date Admission Date: March 22, 2021 Subjective Reports feeling great today. Still some fatigue but states this is improving. Still with some congestion that he was taking COricidin as outpatient. Daughter at bedside states he is back to his normal mentation and looks better than he did on Monday. He is tolerating a diet without issue. Verbalizes no new complaints Review of Systems Review of Systems: All systems reviewed & are unremarkable except as noted in Subjective Physical Exam Physical Exam: PHYSICAL EXAM General Appearance: WDWN in NAD who is A&O x 3 HEENT: Head is normocephalic/atraumatic; Hearing grossly intact; Mucous membranes moist Neck: Supple; Trachea midline; Neg JVD Heart: RRR with no M/G/R Lungs: CTA in all lung simmons bilaterally; Respirations unlabored; Neg accessory muscle use Abdomen: Soft, non-tender, non-distended; Positive BS x 4 quadrants Extremities: Neg cyanosis or edema Neurological: Speech clear; Gross motor/sensory function intact; Neg focal neurologic deficits Psychiatric: Appropriate mood/affect Skin: Normal Color; Warm/Dry Results & Data Results & Data ([facility]) Vital Signs (Past 12 Hours) Vital Signs Temp Pulse Resp BP Pulse Ox 03/29/21 17:13 37.0 C 63 16 137/74 96 03/29/21 08:06 37.3 C 71 18 159/79 H 95 PG Care Time/CCT Total # of Minutes Spent Total Time Spent with Patient: Total time spent is greater than 50% in coordination of care (as documented) at patient's floor/unit and/or counseling patient: Coding Level of Care Code 98974 Subseq Hosp Care Lvl 3 Diagnoses AMS (altered mental status) R41.0 Altered mental status type: disorientation Anemia D64.9 Anemia type: unspecified type GAVE (gastric antral vascular ectasia) K31.819 GERD (gastroesophageal reflux disease) K21.9 Hyperlipidemia E78.5 MCI (mild cognitive impairment) G31.84 (1) AMS (altered mental status) Altered mental status type: disorientation Qualified Code(s): R41.0 - Disorientation, unspecified (2) Anemia Anemia type: unspecified type Qualified Code(s): D64.9 - Anemia, unspecified
[2021-03-29] MEDS: DONEPEZIL HCL 5 MG TAB PO SCH (20:07)
[2021-03-30] MEDS: amLODIPine BESYLATE 5 MG TAB PO SCH (08:47)
[2021-03-30] MEDS: ATORVASTATIN 40 MG TAB PO SCH (08:47)
[2021-03-30] MEDS: METOPROLOL SUCC 25MG EXT REL TAB PO SCH (08:47)
[2021-03-30] MEDS: FERROUS SULFATE 325 MG TAB PO SCH (08:47)
[2021-03-30] MEDS: MEMANTINE HCL 10 MG TAB PO SCH (08:47)
[2021-03-30] MEDS: ESCITALOPRAM OXALATE 10 MG TAB PO SCH (08:47)
[2021-03-30] MEDS: ASPIRIN 81 MG ECTAB PO SCH (08:47)
[2021-03-30] MEDS: DONEPEZIL HCL 5 MG TAB PO SCH (19:49)
--- NOTE | 2021-03-30 20:30 | Hospitalist Progress Note ---
Date of Service March 30, 2021 Assessment & Plan (1) AMS (altered mental status): Plan: 80-year-old male with a PMHx of prostate cancer, basilar artery thrombosis, syncope, facial contusion, mild cognitive impairment, hypertension, asthma, hyperlipidemia, anxiety, GERD, GAVE, ischemic stroke, prostate cancer, supraclinoid carotid artery aneurysm, hiatal hernia, GI bleed, GERD without esophagitis, iron deficiency anemia, and anemia due to acute blood loss present ed with AMS. 1) Altered mental status - RESOLVED with INTERMITTENT FORGETFULNESS -Baseline mild cognitive impairment noted by neurology in previous outpatient visit. -- No infectious etiology found -- CXR with unchanged mild right lower lung interstitial thickening opacity which is unchanged from April 2020 - no leukocytosis or fever and will defer Abx at this time -Previous MRI: enlarged ventricles bilaterally but "does not appear to be normal pressure hydrocephalus" per neurology, also old stable aneurysms. -MRI (03/25): stable moderate ventriculomegaly. -Neurology consult: no signs of normal pressure hydrocephalus, likely just cerebral atrophy. Unchanged from last MRI. -cont. home donepezil 5mg daily -started memantine, 10mg qd x1 month followed by 10mg BID (will need dose increase on April 28 2021) -Awaiting SNF placement (2) Anemia, stable -Hgb 8.5 upon admission, and up to 9.3 currently; check labs in AM -Heme-negative in ED; repeat heme test negative -Iron panel: low iron, normal TIBC, low ferritin, and normal transferrin, transfused 200 mg of iron sulfate. -- Discused with pharmacy and did receive iron infusion x 1 dose -Recent few weeks of diarrhea, denies blood in stool -Protonix discontinued as no active GI bleed is present. -GI signed off - can follow as outpatient -cont aspirin since Hgb stable - Continue ferrous sulfate oral 3) GAVE (gastric antral vascular ectasia): -See above 4) Hypertension - has been very stable recently -discontinued hydralazine -cont. metoprolol -cont. amlodipine -cont. hold HCTZ, consider restarting if BP allows (isolated systolic HTN, be cautious of diastolic drop) 5) Anxiety: -cont. home donepezil and escitalopram 6) Mild cognitive impairment -See above -7) Hyperlipidemia: -cont. home atorvastatin 8) Renal Lesion - CT from 03/22 - 1.3 cm hyperdense L renal lesion - could reflect hyperdense cyst or small solid renal lesion - follow-up nonemergent renal U/S recommended and likely can order tomorrow to further assess Dispo: awaiting SNF placement; discussed with daughter at bedside on 03/29 (2) Anemia: (3) GAVE (gastric antral vascular ectasia): (4) GERD (gastroesophageal reflux disease): (5) Hyperlipidemia: (6) MCI (mild cognitive impairment): Admission and Anticipated Discharge Date Admission Date: March 22, 2021 Subjective Reports no complaints today. Still complaining of some fatigue and not having enough energy but feels that is improving. Forgetful at times. Has shown some improvement with therapy but does not cues. He verbalizes no new complaints. Tolerating his diet and maintaining a good appetite. Review of Systems Review of Systems: All systems reviewed & are unremarkable except as noted in Subjective Physical Exam Physical Exam: PHYSICAL EXAM General Appearance: WDWN in NAD who is A&O x 3 intermittently forgetful HEENT: Head is normocephalic/atraumatic; Hearing grossly intact; Mucous membranes moist Neck: Supple; Trachea midline; Neg JVD Heart: RRR with no M/G/R Lungs: CTA in all lung simmons bilaterally; Respirations unlabored; Neg accessory muscle use Abdomen: Soft, non-tender, non-distended; Positive BS x 4 quadrants Extremities: Neg cyanosis or edema Neurological: Speech clear; Gross motor/sensory function intact; Neg focal neurologic deficits Psychiatric: Appropriate mood/affect Skin: Normal Color; Warm/Dry Results & Data Results & Data ([facility]) Vital Signs (Past 12 Hours) Vital Signs Temp Pulse Resp BP Pulse Ox 03/30/21 16:18 36.5 C 72 18 139/73 99 03/30/21 08:30 37.0 C 70 18 123/63 96 PG Care Time/CCT Total # of Minutes Spent Total Time Spent with Patient: Total time spent is greater than 50% in coordination of care (as documented) at patient's floor/unit and/or counseling patient: Coding Level of Care Code 71074 Subseq Hosp Care Lvl 3 Diagnoses AMS (altered mental status) R41.0 Altered mental status type: disorientation Anemia D64.9 Anemia type: unspecified type GAVE (gastric antral vascular ectasia) K31.819 GERD (gastroesophageal reflux disease) K21.9 Hyperlipidemia E78.5 MCI (mild cognitive impairment) G31.84 (1) AMS (altered mental status) Altered mental status type: disorientation Qualified Code(s): R41.0 - Disorientation, unspecified (2) Anemia Anemia type: unspecified type Qualified Code(s): D64.9 - Anemia, unspecified
[2021-03-31 06:10] LABS: Hematocrit (blood only) 29.2 % (42-52); Hemoglobin 8.9 g/dL (14.0-18.0); Mean Corpuscular Hemoglobin 25.4 pg (25-34); Mean Corpuscular Hgb Conc 30.5 g/dL (32-36); Mean Corpuscular Volume 83.2 fL (80-100); Mean Platelet Volume 9.4 fL (7.4-10.4); Platelet Count 271 K/uL (130-400); RDW Standard Deviation 57.6 fL (36.4-46.3); Red Blood Count 3.51 M/uL (4.7-6.1)
[2021-03-31 06:44] LABS: BUN Creatinine Ratio 24.4 (10-20); Calcium 8.1 mg/dl (8.5-10.1); Creatinine Clr Calc Pharmacy 46.1 ml/min; Est GFR (African American) 56.3 ml/min; Est GFR (Non-African American) 48.5 ml/min; Potassium 3.8 mmol/L (3.5-5.1)
[2021-03-31] MEDS: METOPROLOL SUCC 25MG EXT REL TAB PO SCH (08:14)
[2021-03-31] MEDS: ESCITALOPRAM OXALATE 10 MG TAB PO SCH (08:14)
[2021-03-31] MEDS: ATORVASTATIN 40 MG TAB PO SCH (08:14)
[2021-03-31] MEDS: amLODIPine BESYLATE 5 MG TAB PO SCH (08:14)
[2021-03-31] MEDS: FERROUS SULFATE 325 MG TAB PO SCH (08:14)
[2021-03-31] MEDS: MEMANTINE HCL 10 MG TAB PO SCH (08:15)
[2021-03-31] MEDS: ASPIRIN 81 MG ECTAB PO SCH (09:58)
--- NOTE | 2021-03-31 17:42 | Hospitalist Progress Note ---
Date of Service March 31, 2021 Assessment & Plan (1) AMS (altered mental status): Plan: 80-year-old male with a PMHx of prostate cancer, basilar artery thrombosis, syncope, facial contusion, mild cognitive impairment, hypertension, asthma, hyperlipidemia, anxiety, GERD, GAVE, ischemic stroke, prostate cancer, supraclinoid carotid artery aneurysm, hiatal hernia, GI bleed, GERD without esophagitis, iron deficiency anemia, and anemia due to acute blood loss present ed with AMS. 1) Altered mental status - RESOLVED with INTERMITTENT FORGETFULNESS -Baseline mild cognitive impairment noted by neurology in previous outpatient visit. -- No infectious etiology found -- CXR with unchanged mild right lower lung interstitial thickening opacity which is unchanged from April 2020 - no leukocytosis or fever and will defer Abx at this time -Previous MRI: enlarged ventricles bilaterally but "does not appear to be normal pressure hydrocephalus" per neurology, also old stable aneurysms. -MRI (03/25): stable moderate ventriculomegaly. -Neurology consult: no signs of normal pressure hydrocephalus, likely just cerebral atrophy. Unchanged from last MRI. -cont. home donepezil 5mg daily -started memantine, 10mg qd x1 month followed by 10mg BID (will need dose increase on April 28 2021) -Awaiting SNF placement (2) Anemia, stable -Hgb 8.5 upon admission, and fluctuates between high 8-9s will monitor routinely -Heme-negative in ED; repeat heme test negative -Iron panel: low iron, normal TIBC, low ferritin, and normal transferrin, transfused 200 mg of iron sulfate. -- Discussed with pharmacy and did receive iron infusion x 1 dose -Recent few weeks of diarrhea, denies blood in stool -Protonix discontinued as no active GI bleed is present. -GI signed off - can follow as outpatient -cont aspirin since Hgb stable - Continue ferrous sulfate oral 3) GAVE (gastric antral vascular ectasia): -See above 4) Hypertension - has been very stable recently -cont. metoprolol, amlodipine, and HCTZ 5) Anxiety: -cont. home donepezil and escitalopram 6) Mild cognitive impairment -See above -7) Hyperlipidemia: -cont. home atorvastatin 8) Renal Lesion - CT from 03/22 - 1.3 cm hyperdense L renal lesion - could reflect hyperdense cyst or small solid renal lesion - follow-up nonemergent renal U/S recommended and likely can order tomorrow to further assess Dispo: awaiting SNF placement; discussed with at bedside on 03/31 (2) Anemia: (3) GAVE (gastric antral vascular ectasia): (4) GERD (gastroesophageal reflux disease): (5) Hyperlipidemia: (6) MCI (mild cognitive impairment): Admission and Anticipated Discharge Date Admission Date: March 22, 2021 Subjective Reports feeling well today. Continues to be at baseline mentation. at bedside reports he looks well. He is still having some ambulatory issues and awaiting rehab. Reports having less mucous/coughing today Physical Exam Physical Exam: PHYSICAL EXAM General Appearance: WDWN in NAD who is A&O x 3 HEENT: Head is normocephalic/atraumatic; Hearing grossly intact; Mucous membranes moist Neck: Supple; Trachea midline; Neg JVD Heart: RRR with no M/G/R Lungs: CTA in all lung simmons bilaterally; Respirations unlabored; Neg accessory muscle use Abdomen: Soft, non-tender, non-distended; Positive BS x 4 quadrants Extremities: Neg cyanosis or edema Neurological: Speech clear; Gross motor/sensory function intact; Neg focal neurologic deficits Psychiatric: Appropriate mood/affect Skin: Normal Color; Warm/Dry Results & Data Results & Data ([facility]) Vital Signs (Past 12 Hours) Vital Signs Temp Pulse Resp BP Pulse Ox 03/31/21 15:19 36.5 C 65 18 139/68 95 03/31/21 08:12 36.4 C L 64 18 127/70 96 PG Care Time/CCT Total # of Minutes Spent Total Time Spent with Patient: Total time spent is greater than 50% in coordination of care (as documented) at patient's floor/unit and/or counseling patient: Coding Level of Care Code 65881 Subseq Hosp Care Lvl 2 Diagnoses AMS (altered mental status) R41.0 Altered mental status type: disorientation Anemia D64.9 Anemia type: unspecified type GAVE (gastric antral vascular ectasia) K31.819 GERD (gastroesophageal reflux disease) K21.9 Hyperlipidemia E78.5 MCI (mild cognitive impairment) G31.84 (1) AMS (altered mental status) Altered mental status type: disorientation Qualified Code(s): R41.0 - Disorientation, unspecified (2) Anemia Anemia type: unspecified type Qualified Code(s): D64.9 - Anemia, unspecified
[2021-03-31] MEDS: DONEPEZIL HCL 5 MG TAB PO SCH (20:45)
[2021-04-01] MEDS: ATORVASTATIN 40 MG TAB PO SCH (08:01)
[2021-04-01] MEDS: ASPIRIN 81 MG ECTAB PO SCH (08:01)
[2021-04-01] MEDS: ESCITALOPRAM OXALATE 10 MG TAB PO SCH (08:01)
[2021-04-01] MEDS: amLODIPine BESYLATE 5 MG TAB PO SCH (08:01)
[2021-04-01] MEDS: FERROUS SULFATE 325 MG TAB PO SCH (08:02)
[2021-04-01] MEDS: METOPROLOL SUCC 25MG EXT REL TAB PO SCH (08:02)
[2021-04-01] MEDS: MEMANTINE HCL 10 MG TAB PO SCH (08:02)
[2021-04-01] MEDS: hydroCHLOROthiazide 25 MG TAB PO SCH (09:34)
--- NOTE | 2021-04-01 19:36 | Hospitalist Progress Note ---
Date of Service April 01, 2021 Assessment & Plan (1) AMS (altered mental status): Plan: 80-year-old male with a PMHx of prostate cancer, basilar artery thrombosis, syncope, facial contusion, mild cognitive impairment, hypertension, asthma, hyperlipidemia, anxiety, GERD, GAVE, ischemic stroke, prostate cancer, supraclinoid carotid artery aneurysm, hiatal hernia, GI bleed, GERD without esophagitis, iron deficiency anemia, and anemia due to acute blood loss present ed with AMS. 1) Altered mental status - RESOLVED with INTERMITTENT FORGETFULNESS -Baseline mild cognitive impairment noted by neurology in previous outpatient visit. -- No infectious etiology found -- CXR with unchanged mild right lower lung interstitial thickening opacity which is unchanged from April 2020 - no leukocytosis or fever and will defer Abx at this time -Previous MRI: enlarged ventricles bilaterally but "does not appear to be normal pressure hydrocephalus" per neurology, also old stable aneurysms. -MRI (03/25): stable moderate ventriculomegaly. -Neurology consult: no signs of normal pressure hydrocephalus, likely just cerebral atrophy. Unchanged from last MRI. -cont. home donepezil 5mg daily -started memantine, 10mg qd x1 month followed by 10mg BID (will need dose increase on April 28 2021) -Awaiting SNF placement (2) Anemia, stable -Hgb 8.5 upon admission, and fluctuates between high 8-9s will monitor routinely -Heme-negative in ED; repeat heme test negative -Iron panel: low iron, normal TIBC, low ferritin, and normal transferrin, transfused 200 mg of iron sulfate. -- Discussed with pharmacy and did receive iron infusion x 1 dose -Recent few weeks of diarrhea, denies blood in stool -Protonix discontinued as no active GI bleed is present. -GI signed off - can follow as outpatient -cont aspirin since Hgb stable - Continue ferrous sulfate oral 3) GAVE (gastric antral vascular ectasia): -See above 4) Hypertension - has been very stable recently -cont. metoprolol, amlodipine, and HCTZ 5) Anxiety: -cont. home donepezil and escitalopram 6) Mild cognitive impairment -See above -7) Hyperlipidemia: -cont. home atorvastatin 8) Renal Lesion - CT from 03/22 - 1.3 cm hyperdense L renal lesion - could reflect hyperdense cyst or small solid renal lesion - follow-up nonemergent renal U/S recommended and likely can order tomorrow to further assess Dispo: awaiting SNF placement; discussed with at bedside on 03/31 and talked to daughter on 04/01 (2) Anemia: (3) GAVE (gastric antral vascular ectasia): (4) GERD (gastroesophageal reflux disease): (5) Hyperlipidemia: (6) MCI (mild cognitive impairment): Admission and Anticipated Discharge Date Admission Date: March 22, 2021 Subjective Reports feeling well today. Loves the food and has been working with therapy and seems to be improving. Reports his cough has resolved and doesnt feel congested. He reported to his daughter he is having some diarrhea but did not mention that to me. Family continues to report he is at his baseline mentation. Also discussed if he continues to do well that possibly could consider home with services. Will continue to assess with therapy. Review of Systems Review of Systems: All systems reviewed & are unremarkable except as noted in Subjective Physical Exam Physical Exam: PHYSICAL EXAM General Appearance: WDWN in NAD who is A&O x 3 HEENT: Head is normocephalic/atraumatic; Hearing grossly intact; Mucous membranes moist Neck: Supple; Trachea midline; Neg JVD Heart: RRR with no M/G/R Lungs: CTA in all lung simmons bilaterally; Respirations unlabored; Neg accessory muscle use Abdomen: Soft, non-tender, non-distended; Positive BS x 4 quadrants Extremities: Neg cyanosis or edema Neurological: Speech clear; Gross motor/sensory function intact; Neg focal neurologic deficits Psychiatric: Appropriate mood/affect Skin: Normal Color; Warm/Dry Results & Data Results & Data ([facility]) Vital Signs (Past 12 Hours) Vital Signs Temp Pulse Resp BP Pulse Ox 04/01/21 16:15 36.7 C 71 18 122/66 95 04/01/21 08:13 36.7 C 64 20 161/76 H 95 PG Care Time/CCT Total # of Minutes Spent Total Time Spent with Patient: Total time spent is greater than 50% in coordination of care (as documented) at patient's floor/unit and/or counseling patient: Coding Level of Care Code 45476 Subseq Hosp Care Lvl 2 Diagnoses AMS (altered mental status) R41.0 Altered mental status type: disorientation Anemia D64.9 Anemia type: unspecified type GAVE (gastric antral vascular ectasia) K31.819 GERD (gastroesophageal reflux disease) K21.9 Hyperlipidemia E78.5 MCI (mild cognitive impairment) G31.84 (1) AMS (altered mental status) Altered mental status type: disorientation Qualified Code(s): R41.0 - Disorientation, unspecified (2) Anemia Anemia type: unspecified type Qualified Code(s): D64.9 - Anemia, unspecified
[2021-04-01] MEDS: DONEPEZIL HCL 5 MG TAB PO SCH (20:37)
[2021-04-02] MEDS: amLODIPine BESYLATE 5 MG TAB PO SCH (09:05)
[2021-04-02] MEDS: ATORVASTATIN 40 MG TAB PO SCH (09:05)
[2021-04-02] MEDS: ESCITALOPRAM OXALATE 10 MG TAB PO SCH (09:05)
[2021-04-02] MEDS: ASPIRIN 81 MG ECTAB PO SCH (09:05)
[2021-04-02] MEDS: METOPROLOL SUCC 25MG EXT REL TAB PO SCH (09:05)
[2021-04-02] MEDS: FERROUS SULFATE 325 MG TAB PO SCH (09:05)
[2021-04-02] MEDS: hydroCHLOROthiazide 25 MG TAB PO SCH (09:05)
[2021-04-02] MEDS: MEMANTINE HCL 10 MG TAB PO SCH (09:05)
--- NOTE | 2021-04-02 19:38 | Discharge Summary ---
Date of Service April 02, 2021 Admission HPI Per Admitting Provider The patient is a 80-year-old male past medical history including prostate cancer, basilar artery thrombosis, syncope, facial contusion, mild cognitive impairment, hypertension, asthma, hyperlipidemia, anxiety, GERD, GAVE, ischemic stroke, prostate cancer, supraclinoid carotid artery aneurysm, hiatal hernia, GI bleed, GERD without esophagitis, iron deficiency anemia, and anemia due to acute blood loss. The patient presents to the emergency department as noted above. Abnormal laboratories: Hemoglobin 8.5, hematocrit 27.5 creatinine 1.43 Patient is COVID-[address] scan of head shows stable changes and ventricles, and no other acute changes Admission Exam Per Admitting Provider I certify that this patient is under my care and that I, or a physicians expanded duty dental assistant working with me, had a face to-face encounter that meets the home health [id number] encounter requirements with this patient. The encounter with the patient was in whole, or in part, for the following medical condition, which is the primary reason for home health care (list medical condition): I certify that, based on my findings, the following services are medically necessary home health services: My clinical findings support the need for the above services because: OT Assess ADL Status and Restore Function w ADLs PT Eval for Safety and Mobility Further, I certify that my clinical findings support that this patient is homebound (i.e. absences from home require considerable and taxing effort and are for medical reasons or [facility] services or infrequently or of short duration when for other reasons) because: Certification for Home Health Services: Based on the above findings, I certify that this patient is confined to the home and needs intermittent group home care, physical therapy and/or speech therapy or continues to need occupational therapy. The patient is under my care, and I have initiated the establishment of the plan of care. This patient will be followed by a physician who will periodically review the plan of care. Principal Diagnosis Confusion likely due to Anemia Discharge Exam PHYSICAL EXAM General Appearance: WDWN in NAD who is A&O x 3 HEENT: Head is normocephalic/atraumatic; Hearing grossly intact; Mucous membranes moist Neck: Supple; Trachea midline; Neg JVD Heart: RRR with no M/G/R Lungs: CTA in all lung simmons bilaterally; Respirations unlabored; Neg accessory muscle use Abdomen: Soft, non-tender, non-distended; Positive BS x 4 quadrants Extremities: Neg cyanosis or edema Neurological: Speech clear; Gross motor/sensory function intact; Neg focal neurologic deficits Psychiatric: Appropriate mood/affect Skin: Normal Color; Warm/Dry Discharge Data Allergies Allergy/AdvReac Type Severity Reaction Status Date / Time No Known Allergies Allergy Verified 03/22/21 07:40 Consultations 03/22/21 05:13 ED Decision to Admit Stat 03/22/21 18:07 Consult Gastroenterology Routine 03/25/21 10:28 Consult Neurology Routine Ordered Studies Chest X-Ray 03/22/21 03:37 XR chest 1V portable CLINICAL HISTORY: weakness COMPARISON STUDY: Chest radiograph May 07, 2020. FINDINGS: Lung volumes are mildly diminished. This is unchanged. There is no pneumothorax or pleural effusion. Cardiomegaly is unchanged. There is no evidence for pulmonary edema. There is mild right basilar opacity. There is mild lower lung interstitial thickening. IMPRESSION: 1. Mild right lower lung interstitial thickening opacity. This appears similar to prior exam and may be chronic however an infectious process cannot be excluded. 2. Cardiomegaly without evidence for pulmonary edema. ACT 112: Negative or not required by law. Electronically signed by: Angel Mann M.D. 03/22/2021 6:[address] 03/22/21 03:53 CT OF THE HEAD WITHOUT CONTRAST CLINICAL HISTORY: Altered mental status. COMPARISON STUDY: Head CT May 08, 2020. CT DOSE: 960.06 mGy.cm TECHNIQUE: Helical axial images of the head were obtained without IV contrast. Automated exposure control was utilized for the study. A dose lowering technique was utilized adhering to the principles of ALARA. FINDINGS: No acute intracranial hemorrhage, midline shift or mass effect is present. The ventricular system is stable. White matter hypodensity suggests small vessel disease. The basal cisterns are patent. No extra-axial collections are present. There are no findings to suggest acute dural sinus thrombosis or acute territorial infarct. No significant calvarial abnormalities are present. There is mild sinus mucosal thickening. IMPRESSION: No acute intracranial findings. No change in appearance of the brain. ACT 112: Negative or not required by law. Electronically signed by: Angel Mann M.D. 03/22/2021 6:34 AM Abdomen/Pelvis CT 03/22/21 05:53 CT OF THE ABDOMEN AND PELVIS WITHOUT CONTRAST CLINICAL HISTORY: anemia, assess for retroperitoneal bleed COMPARISON STUDY: Right upper quadrant ultrasound May 26, 2017. TECHNIQUE: Axial images of the abdomen and pelvis were obtained without IV contrast. Images were reviewed in the axial, sagittal, and coronal planes. Automated exposure control was utilized for the study. A dose lowering technique was utilized adhering to the principles of ALARA. FINDINGS: Left lower lobe airspace opacity favors atelectasis. No pneumatosis, free air or portal venous gas is present. There is no retroperitoneal hematoma. There is no hemoperitoneum. Evaluation of the abdomen and pelvis is suboptimal on this unenhanced exam. The liver, spleen, adrenal glands and pancreas are unremarkable. There is no biliary or pancreatic ductal dilatation. No peripancreatic or pericholecystic infiltration. Moderate bilateral renal cortical thinning is noted. There is no hydronephrosis. A 3.2 cm water attenuation lesion within the lower pole of the left kidney is suboptimally assessed on this unenhanced exam but favors a cyst. There is a 1.3 cm hypodense lesion within the midpole of the left kidney. There is no urinary calculi. There is no evidence for a bowel obstruction. Colonic diverticulosis is noted without evidence for acute diverticulitis. Fat-containing bilateral inguinal hernias are present. There is no lymphadenopathy or ascites. No acute fracture or suspicious lesion is identified within the visualized skeletal structures. IMPRESSION: 1. No acute process within the abdomen or pelvis on unenhanced exam. No r etroperitoneal hematoma. 2. Colonic diverticulosis without evidence for acute diverticulitis. 3. 1.3 cm hyperdense left renal lesion. This could reflect a hyperdense cyst or small solid renal lesion. Follow-up nonemergent renal ultrasound is recommended. ACT 112: Negative or not required by law. Electronically signed by: Angel Mann M.D. 03/22/2021 7:54 AM Renal Ultrasound 03/22/21 18:07 RENAL ULTRASOUND CLINICAL HISTORY: cyst noted on L kidney COMPARISON STUDY: CT of the abdomen and pelvis March 22, 2021. TECHNIQUE: Sonography of the kidneys and the urinary bladder was performed. FINDINGS: Right kidney measures 10.4 cm in maximal dimension and the left measures 11.9 cm. There is moderate to severe bilateral renal cortical thinning. There is no hydronephrosis. There is a 9 mm right renal cyst which contains an echogenic focus. Note is made of a 3.1 cm cyst arising from the lower pole of the left kidney. This corresponds to the water attenuation lesion on CT of March 22, 2021. Note is also made of a 1.4 cm cyst within the midpole of the left kidney which corresponds to the hyperdense lesion on CT. There is an additi onal 1.1 cm left renal cyst. No solid renal lesion is identified by sonography. The ureteral jets were visualized. IMPRESSION: 1. 1.4 cm cyst within the midpole of the left kidney which corresponds to the hyperdense lesion on CT performed earlier today. Therefore, this lesion is benign. 2. Moderate to severe bilateral renal cortical thinning. 3. No hydronephrosis. ACT 112: Negative or not required by law. Electronically signed by: Angel Mann M.D. 03/23/2021 6:25 AM Brain MRI 03/25/21 02:33 Brain MRI WITH AND WITHOUT CONTRAST HISTORY: Altered mental status, previous brain aneurysms TECHNIQUE: Multiplanar multisequence MRI of the brain was performed both before and after the intravenous administration of contrast. COMPARISON STUDY: Head CT 03/22/2021. Brain MRI 09/19/2017. FINDINGS: No areas restricted diffusion to suggest acute infarction. The midline structures are intact. Mild periventricular white matter T2 hyperintensity r emains unchanged. This favors chronic microvascular ischemic change. There is no mass, hematoma, midline shift. 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 Mild mucosal thickening within the paranasal sinuses with partial opacities of the ethmoid air cells. This has progressed. The mastoid air cells are clear. The orbits are unremarkable. Old lacunar infarct within the matt/midbrain remains unchanged. Moderate ventriculomegaly remains stable. Postcontrast sequences show no areas of abnormal enhancement. IMPRESSION: 1. No acute infarct or intracranial hemorrhage. 2. 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 3. 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 4. Stable volume loss and moderate ventriculomegaly. 5. Additional findings as described above. ACT 112: Negative or not required by law. Electronically signed by: Iron Aquino M.D. 03/25/2021 7:51 AM Hospital Course (1) AMS (altered mental status): 80-year-old male with a PMHx of prostate cancer, basilar artery thrombosis, syncope, facial contusion, mild cognitive impairment, hypertension, asthma, hyperlipidemia, anxiety, GERD, GAVE, ischemic stroke, prostate cancer, supraclinoid carotid artery aneurysm, hiatal hernia, GI bleed, GERD without esophagitis, iron deficiency anemia, and anemia due to acute blood loss presented with AMS. 1) Altered mental status - RESOLVED with INTERMITTENT FORGETFULNESS -Baseline mild cognitive impairment noted by neurology in previous outpatient visit. -- No infectious etiology found -- CXR with unchanged mild right lower lung interstitial thickening opacity which is unchanged from April 2020 - no leukocytosis or fever and will defer Abx at this time -Previous MRI: enlarged ventricles bilaterally but "does not appear to be normal pressure hydrocephalus" per neurology, also old stable aneurysms. -MRI (03/25): stable moderate ventriculomegaly. -Neurology consult: no signs of normal pressure hydrocephalus, likely just cerebral atrophy. Unchanged from last MRI. -cont. home donepezil 5mg daily -started memantine, 10mg qd x1 month followed by 10mg BID (will need dose increase on April 28 2021) (2) Anemia, stable -Hgb 8.5 upon admission, and fluctuates between high 8-9s will monitor routinely -Heme-negative in ED; repeat heme test negative -Iron panel: low iron, normal TIBC, low ferritin, and normal transferrin, transfused 200 mg of iron sulfate. -- Discussed with pharmacy and did receive iron infusion x 1 dose -Recent few weeks of diarrhea, denies blood in stool -Protonix discontinued as no active GI bleed is present. -GI signed off - can follow as outpatient -cont aspirin since Hgb stable - Continue ferrous sulfate oral 3) GAVE (gastric antral vascular ectasia): -See above 4) Hypertension - has been very stable recently -cont. metoprolol, amlodipine, and HCTZ 5) Anxiety: -cont. home donepezil and escitalopram 6) Mild cognitive impairment -See above -7) Hyperlipidemia: -cont. home atorvastatin 8) Renal Lesion - CT from 03/22 - 1.3 cm hyperdense L renal lesion - could reflect hyperdense cyst or small solid renal lesion - follow-up nonemergent renal U/S recommended and likely can order tomorrow to further assess Dispo: Initial plan was for SNF however continued to do well with therapy and was at baseline ambulatory status and was D/C'd home with home services - Will need renal U/S as outpatient (2) Anemia: (3) GAVE (gastric antral vascular ectasia): (4) GERD (gastroesophageal reflux disease): (5) Hyperlipidemia: (6) MCI (mild cognitive impairment): Total Time Total Time Spent Total Time Spent (In Minutes): Spent greater than 30 minutes preparing patient for discharge. This includes discussion with patient/family, assessment, intervention, medication reconciliation, and coordination of care. Discharge Plan Discharge Items Patient Disposition: Home - Home Health Services Reason For Visit: ALTERED MENTAL STATUS, ANEMIA, GAVE Discharge Diagnosis: Confusion Activity: Resume your previous activity Non-emergency contact: Primary Care Provider Call non-emergency contact if: you have any medication questions, your symptoms worsen and you have a fever Follow-up/Referrals: Chanel Cruz MD [Primary Care Provider] - 04/06/21 12:45 pm Diet: Regular Addtl Attending Provider Instructions: Confusion: - You were admitted for confusion. Thankfully no infection was found - It is possibly the viral respiratory symptoms could have contributed as that can make you tired and a bit more confused - You were also seen by Neurology and thankfully no findings of a stroke or new changes in the brain - The neurologist did recommend starting Memantine 10 mg daily to help with memory. -- On April 28 you will need to increase this to twice a day at that time. Your family doctor can continue the prescriptions for this when that time comes - It is also suspected that your lower blood counts could have contributed. Your iron level was low so you had a dose of IV iron and will continue pills daily. You should have your iron checked in 2-3 months with your family doctor. Renal Cyst: - Incidentally your CAT scan showed a suspected cyst on your kidney. It is recommend to have an ultrasound of the kidney to further look at this to better determine if this is a cyst or something else. We will send the recommendation over to your family doctor to help arrange this ultrasound. Home Medications: - You may continue your home medications as previously prescribed. We did not change these Pending Studies at Discharge: No Stand-Alone Forms: My [facility] [employer], Smoking Cessation Medications and DC Order Prescriptions: New ferrous sulfate 325 mg (65 mg iron) Tablet,Delayed Release (Dr/Ec) 325 mg PO QAM 30 Days Qty: 30 RF: 0 memantine [Namenda] 10 mg Tablet 10 mg PO QAM 30 Days Qty: 30 RF: 0 Continued donepezil 5 mg tablet 5 mg PO HS Qty: 90 RF: 3 atorvastatin 40 mg Tablet 40 mg PO QPM Qty: 30 RF: 0 aspirin [Aspirin Low Dose] 81 mg Tablet,Delayed Release (Dr/Ec) 81 mg PO QAM Qty: 30 RF: 0 ascorbic acid (vitamin C) [Vitamin C] 500 mg Tablet 500 mg PO QAM Qty: 30 RF: 0 amlodipine 10 mg Tablet 10 mg PO QAM Qty: 30 RF: 0 pantoprazole 40 mg Tablet,Delayed Release (Dr/Ec) 40 mg PO QAM Qty: 30 RF: 0 metoprolol succinate 25 mg Tablet Extended Release 24 Hr 25 mg PO QAM Qty: 30 RF: 0 docusate sodium 100 mg Tablet 100 mg PO QAM Qty: 30 RF: 0 escitalopram oxalate 10 mg tablet 10 mg PO QPM Qty: 30 RF: 0 Centrum Silver 0.4-300-250 mg-mcg-mcg Tablet 1 tab PO QAM Qty: 30 RF: 0 hydrochlorothiazide 12.5 mg Tablet 12.5 mg PO QAM Qty: 30 RF: 0 Discharge Orders: Discharge Order (Routine); Ordered 04/02/21 Ordered By: Jennifer Johnson Admission Data Admit Date/Time: 03/22/21 05:38 Attending Provider: Ward Hector Admit Provider: Ramiro Alamo Primary Care Provider: Chanel Cruz Other Providers: Ramiro Alamo ; Gael Elliott ; Jakob Barrientos ; [facility] ; [place] Other Interventions: Discharge Summary Assessment (RN) Last Done: 04/02/21 14:56 Supervising Physician Co-Signing Physician Notes Attending note: patient seen and examined with Jennifer Johnson PA-C. I agree with her discharge summary. I personally reviewed the labs and imaging findings. patient doing well, cooperative, eating, worked up his memory issues, cognitive impairment, likely at his baseline per family - Cognitive impairment: no infection, electrolytes stable, MRI brain without new changes continue Namenda at home family to take home Coding Level of Care Code D/C DAY MANAGEMENT >30 MINS Diagnoses AMS (altered mental status) R41.0 Altered mental status type: disorientation Anemia D64.9 Anemia type: unspecified type GAVE (gastric antral vascular ectasia) K31.819 GERD (gastroesophageal reflux disease) K21.9 Hyperlipidemia E78.5 MCI (mild cognitive impairment) G31.84
== END 2021-04-02 16:58 | disposition home health service (06) | DRG 812 ==
LOC: ED 03:11 → SUATTDRO 05:38 → EDINP 05:38 → 2N 17:38 → 3W 03-24 02:22

== ENCOUNTER 2023-05-10 18:22 | Inpatient (IN) ==
--- NOTE | 2023-05-10 19:22 | XRay Report ---
SINGLE VIEW CHEST CLINICAL HISTORY: Cough FINDINGS: 2 AP, portable, upright chest radiographs are compared to study dated 03/22/2021. The heart is enlarged noting atherosclerotic calcification of the thoracic aorta. The pulmonary vasculature is noncongested. Chronic interstitial thickening is similar to previous. There is bibasilar scarring/at electasis. No airspace consolidation or large pleural effusion is identified. No pneumothorax is seen . The skeletal structures are osteopenic. There are chronic/healed left-sided rib fractures. IMPRESSION: 1. Cardiomegaly without radiographic evidence of congestive failure. 2. Question enlargement of the aortic silhouette. This is not well assessed by x-ray and an aneurysm is not excluded. If there is clinical concern for a thoracic aneurysm a CT angiogram of the chest ivory uld be obtained. 3. No airspace consolidation or large pleural effusion is identified. ACT 112: Negative or not required by law. Electronically signed by: Edwin Chavez M.D. 05/10/2023 7:20 PM
[2023-05-10 19:23] LABS: Basophils # (auto) 0.02 K/uL (0.00-0.20); Basophils % (auto) 0.2 %; Eosinophils # (auto) 0.15 K/uL (0.00-0.50); Eosinophils % (auto) 1.8 %; Hematocrit (blood only) 42.7 % (42.0-52.0); Hemoglobin 14.3 g/dl (14.0-18.0); Immature Granulocytes # (auto) 0.05 K/uL (0.01-0.20); Immature Granulocytes % (auto) 0.6 %; Lymphocytes # (auto) 2.23 K/uL (1.20-3.40); Lymphocytes % (auto) 26.1 %; Mean Corpuscular Hemoglobin 31.2 pg (25.0-34.0); Mean Corpuscular Hgb Conc 33.5 g/dL (32.0-36.0); Mean Corpuscular Volume 93.2 fL (80.0-100.0); Mean Platelet Volume 10.2 fL (9.4-12.4); Monocytes # (auto) 1.21 K/uL (0.11-0.59); Monocytes % (auto) 14.1 %; Neutrophils % (auto) 57.2 %; Platelet Count 159 K/uL (130-400); RDW Standard Deviation 47.7 fL (36.4-46.3); Red Blood Count 4.58 M/uL (4.70-6.10); White Blood Count 8.56 K/ul (4.8-10.8)
--- NOTE | 2023-05-10 19:42 | Emergency Department Note ---
History of Present Illness General Chief complaint: Illness Time Seen by Provider: 05/10/23 19:32 History of Present Illness 82-year-old male presents emergency department via EMS reportedly with fever cough urinary symptoms lethargy the weakness. Patient's family at bedside the daughter is a nurse and she states that this occurred within the past 24 hours he is been febrile has had a cough cold congestion symptoms they did send a urine to [facility] they do not know the result today. Patient's had no chest pain no shortness of breath no nausea vomiting diarrhea no recent infections. There were concerned due to generalized weakness and fever Home Medications Medication Instructions Recorded Confirmed Type amlodipine 10 mg tablet 10 mg PO QAM #30 tabs 05/13/20 03/01/23 Rx ascorbic acid (vitamin C) 500 mg 500 mg PO QAM #30 tabs 05/13/20 03/01/23 Rx tablet (Vitamin C) aspirin 81 mg tablet,delayed 81 mg PO QAM #30 tabs 05/13/20 03/01/23 Rx release (Christina Low Dose Aspirin) atorvastatin 40 mg tablet 40 mg PO QPM #30 tabs 05/13/20 03/01/23 Rx docusate sodium 100 mg tablet 100 mg PO QAM #30 tabs 05/13/20 03/01/23 Rx escitalopram oxalate 10 mg tablet 10 mg PO QPM #30 tabs 05/13/20 03/01/23 Rx hydrochlorothiazide 12.5 mg tablet 12.5 mg PO QAM #30 tabs 05/13/20 03/01/23 Rx metoprolol succinate 25 mg 25 mg PO QAM #30 tabs 05/13/20 03/01/23 Rx tablet,extended release 24 hr vqyxowqy-cco-egygj acid 0.4 1 tab PO QAM #30 tabs 05/13/20 03/01/23 Rx mg-lycopene 300 mcg-lutein 250 mcg tablet (Centrum Silver) pantoprazole 40 mg tablet,delayed 40 mg PO QAM #30 tabs 05/13/20 03/01/23 Rx release donepezil 5 mg tablet 5 mg PO HS #90 tabs 11/10/22 03/01/23 Rx memantine 5 mg tablet 5 mg PO BID 90 days #180 tabs 11/29/22 03/01/23 Rx Allergies Allergy/AdvReac Type Severity Reaction Status Date / Time No Known Allergies Allergy Verified 03/01/23 09:57 Past Med/Surg History Medical History AMS (altered mental status) Anxiety Prostate cancer 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 Hernandes Hypertension Hyperlipidemia Shortness of breath Iron deficiency GI bleed CVA (cerebral vascular accident) Anemia Surgical History History of colonoscopy History of esophagogastroduodenoscopy (EGD) History of tooth extraction all upper and some lower Family History Mother Family history of diabetes mellitus Other No family history of adverse response to anesthesia Social History Smoking Status: Former smoker Second Hand Exposure: No; Do You Dip or Chew Tobacco: No; Hx Alcohol Use: No Hx Substance Use: No Preferred Language: Greenlandic Communication Ability: Effective Freel[employer] Required: No Beliefs That Will Affect Care: None marital status: Current Living Situation: Spouse Feels Safe at Home: Yes Assistive Devices: Denture - Upper, Denture - Lower and Glasses Review of Systems Unobtainable due to cognitive status Physical Exam Vital Signs Vital Signs - 24 hr 05/10/23 18:31 05/10/23 18:34 05/10/23 18:52 Temperature 37.1 C Temperature Source Oral Pulse Rate 74 74 75 Pulse Rate from SpO2 Sensor 75 Pulse Rhythm Regular Pulse Strength Normal Respiratory Rate 12 20 Respiratory Effort / Characteristics Non-Labored Spontaneous Respiratory Depth Normal Respiratory Pattern Regular Blood Pressure 168/83 H 168/83 H Blood Pressure Mean 111 111 Pulse Oximetry 95 94 Oxygen Delivery Method Room Air Room Air Sepsis Recent Fever Within 48 Hours Yes Sepsis New/Unexplained Change in Mental Status N/A Sepsis Action Taken by Nursing No Action Required 05/10/23 20:02 05/10/23 20:09 05/10/23 20:48 Temperature 37.3 C Temperature Source Rectal Pulse Rate 72 74 Pulse Rate from SpO2 Sensor 74 Pulse Rhythm Pulse Strength Respiratory Rate 19 24 Respiratory Effort / Characteristics Respiratory Depth Respiratory Pattern Blood Pressure 158/77 H 164/93 H Blood Pressure Mean 104 116 Pulse Oximetry 96 94 Oxygen Delivery Method Room Air Room Air Sepsis Recent Fever Within 48 Hours Sepsis New/Unexplained Change in Mental Status Sepsis Action Taken by Nursing GENERAL: Patient is awake alert in no acute distress patient is resting comfortably and showing no signs of anxiety EYES: The conjunctivae are clear. The pupils are round and reactive. EARS, NOSE, MOUTH AND THROAT: The nose is without any evidence of any deformity. Mucous membranes are moist. Tongue is midline. NECK: The neck is nontender and supple. RESPIRATORY: Normal respiratory effort is noted there is no evidence of wheezing rhonchi or rales CARDIOVASCULAR: Regular rate and rhythm noted there no murmurs rubs or gallops normal S1 normal S2. GASTROINTESTINAL: The abdomen is soft. Abdomen is nontender. PELVIS: The Pelvis is stable. No tenderness to palpation is noted. BACK: No midline tenderness or or step-off noted range of motion in flexion extension as well as rotation no signs of muscle spasm noted MUSCULOSKELETAL/EXTREMITIES: There is no evidence of gross deformity full range of motion is noted in the hips and shoulders. SKIN: There is no obvious evidence of any rash. There are no petechiae, pallor or cyanosis noted. NEUROLOGIC: Patient is awake alert and oriented x3 strength is symmetric patellar reflexes are 2+ bilaterally Medical Decision Making Medical Records Attestation: I reviewed the patient's medical records. Home Medications Current Medication List: was personally reviewed by me Laboratory Data Attestation: I reviewed the patient's lab results. 05/10/23 18:40 05/10/23 18:40 Lab Results 05/10/23 05/10/23 05/10/23 Range/Units 18:40 19:02 19:50 WBC 8.56 (4.8-10.8) K/ul RBC 4.58 L (4.70-6.10) M/uL Hgb 14.3 (14.0-18.0) g/dl Hct 42.7 (42.0-52.0) % MCV 93.2 (80.0-100.0) fL MCH 31.2 (25.0-34.0) pg MCHC 33.5 (32.0-36.0) g/dL RDW Std Deviation 47.7 H (36.4-46.3) fL RDW Coeff of [place] 14.0 (11.5-14.5) % Plt Count 159 (130-400) K/uL MPV 10.2 (9.4-12.4) fL Immature Gran % (Auto) 0.6 % Neut % (Auto) 57.2 % Lymph % (Auto) 26.1 % [place] % (Auto) 14.1 % Eos % (Auto) 1.8 % Baso % (Auto) 0.2 % Neut # (Auto) 4.90 (1.40-6.50) K/uL Lymph # (Auto) 2.23 (1.20-3.40) K/uL [place] # (Auto) 1.21 H (0.11-0.59) K/uL Eos # (Auto) 0.15 (0.00-0.50) K/uL Baso # (Auto) 0.02 (0.00-0.20) K/uL Immature Gran # (Auto) 0.05 (0.01-0.20) K/uL Sodium 136 (136-145) mmol/L Potassium 3.4 L (3.5-5.1) mmol/L Chloride 101 (98-107) mmol/L Carbon Dioxide 26 (21-32) mmol/L Anion Gap 9 (3-11) BUN 25 H (6-23) mg/dl Creatinine 1.36 (0.6-1.4) mg/dl Est Cr Clr Drug Dosing 46.9 ml/min Est GFR ( Amer) 55.0 ml/min Est GFR (Non-Af Amer) 47.4 ml/min BUN/Creatinine Ratio 18.4 (10-20) Glucose 119 H (70-99(Fasting)) mg/dl Lactate (0.4-2.0) mmol/L Calcium 8.8 (8.6-10.3) mg/dl Magnesium 2.1 (1.7-2.4) mg/dl Total Bilirubin 0.8 (0.2-1.0) mg/dl AST 23 (13-39) U/L ALT 21 (7-52) U/L Alkaline Phosphatase 96 (34-104) U/L Troponin I High Sens 15.4 (0-20) pg/ml Total Protein 8.2 (6.0-8.3) gm/dl Albumin 4.2 (3.4-5.0) gm/dl Globulin 4.0 (2.5-4.0) gm/dl Albumin/Globulin Ratio 1.1 (0.9-2) Procalcitonin 0.07 (0-0.5) ng/ml Urine Color Yellow Urine Appearance Clear (Clear) Urine pH 6.5 (4.5-7.5) Ur Specific [place] 1.014 (1.000-1.030) Urine Protein 1+ H (Negative) Urine Glucose (UA) Negative (Negative) Urine Ketones Negative (Negative) Urine Blood Negative (Negative) Urine Nitrite Negative (Negative) Urine Bilirubin Negative (Negative) Urine Urobilinogen Negative (Negative) Ur Leukocyte Esterase Negative (Negative) Urine WBC (Auto) 0 (0-5) /hpf Urine RBC (Auto) 0-4 (0-4) /hpf U Hyaline Cast (Auto) 0 (0-5) /lpf U Epithel Cells (Auto) 0-5 (0-5) /lpf Urine Bacteria (Auto) Negative (Negative) SARS-CoV-2 (PCR) POSITIVE A* (Negative) Influenza Type A (PCR) Negative (Neg) Influenza Type B (PCR) Negative (Neg) RSV (RT-PCR) Negative (Neg) 05/10/23 Range/Units Unknown WBC (4.8-10.8) K/ul RBC (4.70-6.10) M/uL Hgb (14.0-18.0) g/dl Hct (42.0-52.0) % MCV (80.0-100.0) fL MCH (25.0-34.0) pg MCHC (32.0-36.0) g/dL RDW Std Deviation (36.4-46.3) fL RDW Coeff of [place] (11.5-14.5) % Plt Count (130-400) K/uL MPV (9.4-12.4) fL Immature Gran % (Auto) % Neut % (Auto) % Lymph % (Auto) % [place] % (Auto) % Eos % (Auto) % Baso % (Auto) % Neut # (Auto) (1.40-6.50) K/uL Lymph # (Auto) (1.20-3.40) K/uL [place] # (Auto) (0.11-0.59) K/uL Eos # (Auto) (0.00-0.50) K/uL Baso # (Auto) (0.00-0.20) K/uL Immature Gran # (Auto) (0.01-0.20) K/uL Sodium (136-145) mmol/L Potassium (3.5-5.1) mmol/L Chloride (98-107) mmol/L Carbon Dioxide (21-32) mmol/L Anion Gap (3-11) BUN (6-23) mg/dl Creatinine (0.6-1.4) mg/dl Est Cr Clr Drug Dosing ml/min Est GFR ( Amer) ml/min Est GFR (Non-Af Amer) ml/min BUN/Creatinine Ratio (10-20) Glucose (70-99(Fasting)) mg/dl Lactate 1.3 (0.4-2.0) mmol/L Calcium (8.6-10.3) mg/dl Magnesium (1.7-2.4) mg/dl Total Bilirubin (0.2-1.0) mg/dl AST (13-39) U/L ALT (7-52) U/L Alkaline Phosphatase (34-104) U/L Troponin I High Sens (0-20) pg/ml Total Protein (6.0-8.3) gm/dl Albumin (3.4-5.0) gm/dl Globulin (2.5-4.0) gm/dl Albumin/Globulin Ratio (0.9-2) Procalcitonin (0-0.5) ng/ml Urine Color Urine Appearance (Clear) Urine pH (4.5-7.5) Ur Specific [place] (1.000-1.030) Urine Protein (Negative) Urine Glucose (UA) (Negative) Urine Ketones (Negative) Urine Blood (Negative) Urine Nitrite (Negative) Urine Bilirubin (Negative) Urine Urobilinogen (Negative) Ur Leukocyte Esterase (Negative) Urine WBC (Auto) (0-5) /hpf Urine RBC (Auto) (0-4) /hpf U Hyaline Cast (Auto) (0-5) /lpf U Epithel Cells (Auto) (0-5) /lpf Urine Bacteria (Auto) (Negative) SARS-CoV-2 (PCR) (Negative) Influenza Type A (PCR) (Neg) Influenza Type B (PCR) (Neg) RSV (RT-PCR) (Neg) Imaging Data Attestation: I personally reviewed and interpreted this imaging study as follows: My Impression: Chest x-ray interpreted by me negative for infiltrate Radiologist's Impression: Chest X-Ray 05/10/23 18:56 SINGLE VIEW CHEST CLINICAL HISTORY: Cough FINDINGS: 2 AP, portable, upright chest radiographs are compared to study dated 03/22/2021. The heart is enlarged noting atherosclerotic calcification of the thoracic aorta. The pulmonary vasculature is noncongested. Chronic interstitial thickening is similar to previous. There is bibasilar scarring/atelectasis. No airspace consolidation or large pleural effusion is identified. No pneumothorax is seen. The skeletal structures are osteopenic. There are chronic/healed left- sided rib fractures. IMPRESSION: 1. Cardiomegaly without radiographic evidence of congestive failure. 2. Question enlargement of the aortic silhouette. This is not well assessed by x-ray and an aneurysm is not excluded. If there is clinical concern for a thoracic aneurysm a CT angiogram of the chest should be obtained. 3. No airspace consolidation or large pleural effusion is identified. ACT 112: Negative or not required by law. Electronically signed by: Edwin Chavez M.D. 05/10/2023 7:20 PM [facility] Narrative Medical decision making differential diagnosis includes sepsis, pneumonia, upper respiratory tract infection, urinary tract infection, electrolyte abnormality, dehydration Plan is to initiate sepsis orders, CT brain Family at bedside gave me history -patient has a history of dementia, concern for urinary tract infection as the daughter is a nurse Impression & Plan COVID-19, AMS (altered mental status) Discharge Plan Visit Data Chief Complaint: Illness ED Provider: Shun Barber Discharge Problem: COVID-19, AMS (altered mental status) Patient Disposition: Admitted As Inpatient Forms Stand Alone Forms: My [facility] Prescriptions Prescriptions: No Action donepezil 5 mg tablet 5 mg PO HS Qty: 90 3RF memantine 5 mg tablet 5 mg PO BID 90 Days Qty: 180 3RF atorvastatin 40 mg Tablet 40 mg PO QPM Qty: 30 0RF aspirin [Christina Low Dose Aspirin] 81 mg Tablet,Delayed Release (Dr/Ec) 81 mg PO QAM Qty: 30 0RF ascorbic acid (vitamin C) [Vitamin C] 500 mg Tablet 500 mg PO QAM Qty: 30 0RF amlodipine 10 mg Tablet 10 mg PO QAM Qty: 30 0RF pantoprazole 40 mg Tablet,Delayed Release (Dr/Ec) 40 mg PO QAM Qty: 30 0RF metoprolol succinate 25 mg Tablet Extended Release 24 Hr 25 mg PO QAM Qty: 30 0RF docusate sodium 100 mg Tablet 100 mg PO QAM Qty: 30 0RF escitalopram oxalate 10 mg tablet 10 mg PO QPM Qty: 30 0RF Centrum Silver 0.4-300-250 mg-mcg-mcg Tablet 1 tab PO QAM Qty: 30 0RF hydrochlorothiazide 12.5 mg Tablet 12.5 mg PO QAM Qty: 30 0RF Referrals Referrals: Chanel Cruz MD [Primary Care Provider] -
[2023-05-10 19:45] LABS: Albumin Globulin Ratio 1.1 (0.9-2); Albumin Level 4.2 gm/dl (3.4-5.0); BUN Creatinine Ratio 18.4 (10-20); Bilirubin,Total 0.8 mg/dl (0.2-1.0); Calcium 8.8 mg/dl (8.6-10.3); Creatinine Clr Calc Pharmacy 46.9 ml/min; Est GFR (Non-African American) 47.4 ml/min; Potassium 3.4 mmol/L (3.5-5.1); Total Protein 8.2 gm/dl (6.0-8.3)
[2023-05-10 19:55] LABS: Magnesium 2.1 mg/dl (1.7-2.4)
[2023-05-10 20:01] LABS: Troponin I High Sensitivity 15.4 pg/ml (0-20)
[2023-05-10 20:08] LABS: Influenza A virus by PCR Negative (Neg); Influenza B virus by PCR Negative (Neg); RSV by PCR Negative (Neg)
[2023-05-10 20:09] LABS: Appearance Urine Clear (Clear); Bacteria Urine Automated Negative (Negative); Bilirubin Urine Negative (Negative); Blood Urine Negative (Negative); Cast Urine Automated 0 /lpf (0-5); Color Urine Yellow; Epithelial Cell Urine Auto 0-5 /lpf (0-5); Glucose Urine UA Negative (Negative); Ketones Urine Negative (Negative); Leukocyte Esterase Urine Negative (Negative); Nitrite Urine Negative (Negative); Protein Urine 1+ (Negative); RBC Urine Automated 0-4 /hpf (0-4); Specific Gravity Urine 1.014 (1.000-1.030); Urobilinogen Urine Negative (Negative); WBC Urine Automated 0 /hpf (0-5); pH Urine 6.5 (4.5-7.5)
[2023-05-10 20:15] LABS: SARS CoV2 RNA(COVID-19) Ceph POSITIVE (Negative)
--- NOTE | 2023-05-10 20:58 | CT Scan Report ---
Exam(s): CT HEAD Without Contrast EXAM: CT Head Without Intravenous Contrast CLINICAL HISTORY: Reason for exam: ams. TECHNIQUE: Axial computed tomography images of the head/brain without intravenous contrast. CTDI is 37.69 mGy and DLP is 702.46 mGy-cm. Automated exposure control was utilized for the study. A dose lowering technique was utilized adhering to the principles of ALARA. COMPARISON: 03/22/21 FINDINGS: Brain: Generalized parenchymal volume loss. Chronic small vessel ischemic changes in the cerebral white matter. Flaherty-white matter differentiation maintained. No acute intracranial hemorrhage. No mass- effect or shift. Ventricles: Unremarkable. No hydrocephalus. Bones/joints: Unremarkable. No acute fracture. Soft tissues: Unremarkable. Vasculature: Intracranial atherosclerosis. Sinuses: Unremarkable as visualized. No acute sinusitis. Mastoid air cells: Unremarkable as visualized. No mastoid effusion. IMPRESSION: No acute intracranial process. Electronically signed by: Edwar Castrejon M.D. 05/10/23 20:57 PM
[2023-05-10] MEDS ORDERED: POTASSIUM CHLORIDE CRTAB 20 MEQ TABCR PO STA (21:18)
--- NOTE | 2023-05-10 21:26 | History & Physical Report ---
Date of Service May 10, 2023 Assessment & Plan (1) COVID-19: Plan: 82yo male presenting with two days of progressive weakness and confusion as well as cough and subjective fever. Found to be POSITIVE for Covid-19 infection. Patient lives at home with his elderly . Is unable to ambulate or care for himself at this time. -Admit to medical -Maintain isolation precautions -No hypoxia - no indication for treatment with Dexamethasone or Remdesivir at this time. -Symptomatic management - Tylenol, Robitussin PRN -Lovenox for DVT prophylaxis -PT/OT evaluation -Case management consultation for placement needs (2) Dementia: Plan: Patient oriented to self and location. Family reports increased confusion -Continue Aricept and Namenda -Frequent orientation (3) GERD (gastroesophageal reflux disease): Plan: Chronic. Stable -Continue Protonix 40mg po daily (4) Hypertension: Plan: Blood pressure mildly elevated -Continue home medications, Metoprolol HCTZ and Amlodipine -Monitor (5) Abnormal chest x-ray: Plan: Noted to have question of enlargement of the aortic silhouette. Likely positional but consideration for aneurysm. Patient denies chest pain or back pain -Consider outpatient imaging History of Present Illness Chief Complaint: weakness Primary Care Provider: Chanel Cruz MD Ceasar Correia is an 82yo male with history of HTN, HLP, GERD and Dementia presenting with diffuse, generalized weakness as well as confusion, cough and subjective fever. Patient had a doctor's appointment yesterday and he had a difficult time ambulating secondary to weakness. His symptoms worsened today which prompted his family to bring him to the ER. Patient had a worsening cough today as well and is more confused than usual. No report of chest pain, palpitations, nausea, vomiting, diarrhea. In the ER he is afebrile, HD stable. Adequate oxygenation on room air with no respiratory distress. Allergies Allergy/AdvReac Type Severity Reaction Status Date / Time No Known Allergies Allergy Verified 05/10/23 21:37 Home Medications Medication Instructions Recorded Confirmed Type amlodipine 10 mg tablet 10 mg PO QAM #30 tabs 05/13/20 05/10/23 Rx aspirin 81 mg tablet,delayed 81 mg PO QAM #30 tabs 05/13/20 05/10/23 Rx release (Christina Low Dose Aspirin) atorvastatin 40 mg tablet 40 mg PO QPM #30 tabs 05/13/20 05/10/23 Rx escitalopram oxalate 10 mg tablet 10 mg PO QPM #30 tabs 05/13/20 05/10/23 Rx hydrochlorothiazide 12.5 mg tablet 12.5 mg PO QAM #30 tabs 05/13/20 05/10/23 Rx lzijirxb-wln-aptnq acid 0.4 1 tab PO QAM #30 tabs 05/13/20 05/10/23 Rx mg-lycopene 300 mcg-lutein 250 mcg tablet (Centrum Silver) pantoprazole 40 mg tablet,delayed 40 mg PO QAM #30 tabs 05/13/20 05/10/23 Rx release donepezil 5 mg tablet 5 mg PO HS #90 tabs 11/10/22 05/10/23 Rx dorzolamide 22.3 mg-timolol 6.8 1 drp OPB BID 05/10/23 05/10/23 History mg/mL eye drops ferrous sulfate 325 mg (65 mg 325 mg PO DAILY 05/10/23 05/10/23 History iron) tablet latanoprost 0.005 % eye drops 1 drp OPB HS 05/10/23 05/10/23 History memantine 5 mg tablet 10 mg PO QAM 05/10/23 05/10/23 History metoprolol succinate 25 mg 25 mg PO QPM 05/10/23 05/10/23 History tablet,extended release 24 hr potassium chloride 10 mEq 10 meq PO QAM 05/10/23 05/10/23 History tablet,extended release Past Med/Surg History Medical History AMS (altered mental status) Anxiety Prostate cancer 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 Hernandes Hypertension Hyperlipidemia Shortness of breath Iron deficiency GI bleed CVA (cerebral vascular accident) Anemia Surgical History History of colonoscopy History of esophagogastroduodenoscopy (EGD) History of tooth extraction all upper and some lower Family History Mother Family history of diabetes mellitus Other No family history of adverse response to anesthesia Social History Smoking Status: Former smoker Second Hand Exposure: No; Do You Dip or Chew Tobacco: No; Hx Alcohol Use: No Hx Substance Use: No Preferred Language: Martiniquais Communication Ability: Effective Pot Room Supervisor Required: No Beliefs That Will Affect Care: None marital status: Current Living Situation: Spouse Other Information That Helps Us Care for You: No Feels Safe at Home: Yes Safety Concerns: Feels Safe At This Time Assistive Devices: Denture - Upper, Denture - Lower and Glasses Review of Systems Review of Systems: All systems reviewed & are unremarkable except as noted in HPI & below Physical Exam Physical Exam: General: patient resting comfortably, NAD, non-toxic in appearance, AA&O to self Skin: warm, dry, intact, no rashes or lesions HEENT: NC/AT, PERRL, EOMI, anicteric sclera, conjunctiva without injection, external ear normal to inspection and nontender, nares patent, moist mucus membranes, dentition intact, no oropharyngeal lesions, neck supple, trachea midline, no LAD, no thyromegaly, no JVD Heart: +S1/S2, regular, no m/r/g Lungs: equal air entry bilaterally, no rales/rhonchi/wheezes Abd: +BS, soft, NT/ND, no masses/organomegaly/ascites Ext: warm, 2+ pulses in UE/LE bilaterally, no clubbing/cyanosis or edema Neuro: nonfocal, speech intact, no facial droop, moving all extremities on command with equal strength 5/5 Results & Data Results & Data Vital Signs (Past 12 Hours) Vital Signs Temp Pulse Resp BP Pulse Ox O2 Del Method 05/10/23 20:48 74 24 164/93 H 94 Room Air 05/10/23 20:09 72 19 158/77 H 96 Room Air 05/10/23 20:02 37.3 C 05/10/23 18:52 37.1 C 75 20 168/83 H 94 Room Air 05/10/23 18:34 74 05/10/23 18:31 74 12 168/83 H 95 Room Air Laboratory Results Laboratory Results WBC 8.56 K/ul (4.8-10.8) 05/10/23 18:40 RBC 4.58 M/uL (4.70-6.10) L 05/10/23 18:40 Hgb 14.3 g/dl (14.0-18.0) 05/10/23 18:40 Hct 42.7 % (42.0-52.0) 05/10/23 18:40 MCV 93.2 fL (80.0-100.0) 05/10/23 18:40 MCH 31.2 pg (25.0-34.0) 05/10/23 18:40 MCHC 33.5 g/dL (32.0-36.0) 05/10/23 18:40 RDW Std Deviation 47.7 fL (36.4-46.3) H 05/10/23 18:40 RDW Coeff of [place] 14.0 % (11.5-14.5) 05/10/23 18:40 Plt Count 159 K/uL (130-400) 05/10/23 18:40 MPV 10.2 fL (9.4-12.4) 05/10/23 18:40 Immature Gran % (Auto) 0.6 % 05/10/23 18:40 Neut % (Auto) 57.2 % 05/10/23 18:40 Lymph % (Auto) 26.1 % 05/10/23 18:40 [place] % (Auto) 14.1 % 05/10/23 18:40 Eos % (Auto) 1.8 % 05/10/23 18:40 Baso % (Auto) 0.2 % 05/10/23 18:40 Neut # (Auto) 4.90 K/uL (1.40-6.50) 05/10/23 18:40 Lymph # (Auto) 2.23 K/uL (1.20-3.40) 05/10/23 18:40 [place] # (Auto) 1.21 K/uL (0.11-0.59) H 05/10/23 18:40 Eos # (Auto) 0.15 K/uL (0.00-0.50) 05/10/23 18:40 Baso # (Auto) 0.02 K/uL (0.00-0.20) 05/10/23 18:40 Immature Gran # (Auto) 0.05 K/uL (0.01-0.20) 05/10/23 18:40 Sodium 136 mmol/L (136-145) 05/10/23 18:40 Potassium 3.4 mmol/L (3.5-5.1) L 05/10/23 18:40 Chloride 101 mmol/L (98-107) 05/10/23 18:40 Carbon Dioxide 26 mmol/L (21-32) 05/10/23 18:40 Anion Gap 9 (3-11) 05/10/23 18:40 BUN 25 mg/dl (6-23) H 05/10/23 18:40 Creatinine 1.36 mg/dl (0.6-1.4) 05/10/23 18:40 Est Cr Clr Drug Dosing 46.9 ml/min 05/10/23 18:40 Est GFR ( Amer) 55.0 ml/min 05/10/23 18:40 Est GFR (Non-Af Amer) 47.4 ml/min 05/10/23 18:40 BUN/Creatinine Ratio 18.4 (10-20) 05/10/23 18:40 Glucose 119 mg/dl (70-99(Fasting)) H 05/10/23 18:40 Lactate 1.3 mmol/L (0.4-2.0) 05/10/23 Unknown Calcium 8.8 mg/dl (8.6-10.3) 05/10/23 18:40 Magnesium 2.1 mg/dl (1.7-2.4) 05/10/23 18:40 Total Bilirubin 0.8 mg/dl (0.2-1.0) 05/10/23 18:40 AST 23 U/L (13-39) 05/10/23 18:40 ALT 21 U/L (7-52) 05/10/23 18:40 Alkaline Phosphatase 96 U/L (34-104) 05/10/23 18:40 Troponin I High Sens 15.4 pg/ml (0-20) 05/10/23 18:40 Total Protein 8.2 gm/dl (6.0-8.3) 05/10/23 18:40 Albumin 4.2 gm/dl (3.4-5.0) 05/10/23 18:40 Globulin 4.0 gm/dl (2.5-4.0) 05/10/23 18:40 Albumin/Globulin Ratio 1.1 (0.9-2) 05/10/23 18:40 Procalcitonin 0.07 ng/ml (0-0.5) 05/10/23 18:40 TSH 1.848 uIu/ml (0.300-4.500) 05/10/23 18:40 Urine Color Yellow 05/10/23 19:50 Urine Appearance Clear (Clear) 05/10/23 19:50 Urine pH 6.5 (4.5-7.5) 05/10/23 19:50 Ur Specific [place] 1.014 (1.000-1.030) 05/10/23 19:50 Urine Protein 1+ (Negative) H 05/10/23 19:50 Urine Glucose (UA) Negative (Negative) 05/10/23 19:50 Urine Ketones Negative (Negative) 05/10/23 19:50 Urine Blood Negative (Negative) 05/10/23 19:50 Urine Nitrite Negative (Negative) 05/10/23 19:50 Urine Bilirubin Negative (Negative) 05/10/23 19:50 Urine Urobilinogen Negative (Negative) 05/10/23 19:50 Ur Leukocyte Esterase Negative (Negative) 05/10/23 19:50 Urine WBC (Auto) 0 /hpf (0-5) 05/10/23 19:50 Urine RBC (Auto) 0-4 /hpf (0-4) 05/10/23 19:50 U Hyaline Cast (Auto) 0 /lpf (0-5) 05/10/23 19:50 U Epithel Cells (Auto) 0-5 /lpf (0-5) 05/10/23 19:50 Urine Bacteria (Auto) Negative (Negative) 05/10/23 19:50 SARS-CoV-2 (PCR) POSITIVE (Negative) A* 05/10/23 19:02 Influenza Type A (PCR) Negative (Neg) 05/10/23 19:02 Influenza Type B (PCR) Negative (Neg) 05/10/23 19:02 RSV (RT-PCR) Negative (Neg) 05/10/23 19:02 Impressions Chest X-Ray 05/10/23 18:56 SINGLE VIEW CHEST CLINICAL HISTORY: Cough FINDINGS: 2 AP, portable, upright chest radiographs are compared to study dated 03/22/2021. The heart is enlarged noting atherosclerotic calcification of the thoracic aorta. The pulmonary vasculature is noncongested. Chronic interstitial thickening is similar to previous. There is bibasilar scarring/atelectasis. No airspace consolidation or large pleural effusion is identified. No pneumothorax is seen. The skeletal structures are osteopenic. There are chronic/healed left- sided rib fractures. IMPRESSION: 1. Cardiomegaly without radiographic evidence of congestive failure. 2. Question enlargement of the aortic silhouette. This is not well assessed by x-ray and an aneurysm is not excluded. If there is clinical concern for a thoracic aneurysm a CT angiogram of the chest should be obtained. 3. No airspace consolidation or large pleural effusion is identified. ACT 112: Negative or not required by law. Electronically signed by: Edwin Chavez M.D. 05/10/2023 7:[address] 05/10/23 19:44 Exam(s): CT HEAD Without Contrast EXAM: CT Head Without Intravenous Contrast CLINICAL HISTORY: Reason for exam: ams. TECHNIQUE: Axial computed tomography images of the head/brain without intravenous contrast. CTDI is 37.69 mGy and DLP is 702.46 mGy-cm. Automated exposure control was utilized for the study. A dose lowering technique was utilized adhering to the principles of ALARA. COMPARISON: 03/22/21 FINDINGS: Brain: Generalized parenchymal volume loss. Chronic small vessel ischemic changes in the cerebral white matter. Flaherty-white matter differentiation maintained. No acute intracranial hemorrhage. No mass- effect or shift. Ventricles: Unremarkable. No hydrocephalus. Bones/joints: Unremarkable. No acute fracture. Soft tissues: Unremarkable. Vasculature: Intracranial atherosclerosis. Sinuses: Unremarkable as visualized. No acute sinusitis. Mastoid air cells: Unremarkable as visualized. No mastoid effusion. IMPRESSION: No acute intracranial process. Electronically signed by: Edwar Castrejon M.D. 05/10/23 20:57 PM Code Status & VTE Plan VTE Prophylaxis Plan VTE Prophylaxis will be ordered: Yes PG Care Time/CCT Total # of Minutes Spent Total Time Spent with Patient: Total time spent is greater than 50% in coordination of care (as documented) at patient's floor/unit and/or counseling patient: Coding Level of Care Code 93387 INT INP/OBS CARE Diagnoses COVID-19 U07.1 Dementia F03.90 GERD (gastroesophageal reflux disease) K21.9 Hypertension I10 Abnormal chest x-ray R93.89
[2023-05-10] MEDS ORDERED: METOPROLOL SUCC 25MG EXT REL TAB PO STA (21:45)
[2023-05-10] MEDS ORDERED: ATORVASTATIN 40 MG TAB PO STA (21:45)
[2023-05-10] MEDS ORDERED: DONEPEZIL HCL 5 MG TAB PO STA (21:45)
[2023-05-10] MEDS ORDERED: ESCITALOPRAM OXALATE 10 MG TAB PO STA (21:45)
[2023-05-10] MEDS ORDERED: ONDANSETRON INJ 2 MG/ML 2 ML VIAL IV PRN (23:24)
[2023-05-10] MEDS ORDERED: ACETAMINOPHEN 325 MG TAB PO PRN (23:24)
[2023-05-11 00:10] LABS: Thyroid Stimulating Hormone 1.848 uIu/ml (0.300-4.500)
[2023-05-11] MEDS: ENOXAPARIN INJ 40 MG/0.4 ML SYR SQ SCH ×2 (00:52→20:20)
[2023-05-11] MEDS ORDERED: guaiFENesin SUGAR FREE 100 MG/5 ML UDC PO PRN (02:52)
[2023-05-11 05:59] LABS: Hematocrit (blood only) 38.6 % (42.0-52.0); Mean Corpuscular Hemoglobin 31.6 pg (25.0-34.0); Mean Corpuscular Hgb Conc 33.7 g/dL (32.0-36.0); Mean Corpuscular Volume 93.9 fL (80.0-100.0); Mean Platelet Volume 10.4 fL (9.4-12.4); Platelet Count 151 K/uL (130-400); RDW Standard Deviation 47.8 fL (36.4-46.3); Red Blood Count 4.11 M/uL (4.70-6.10); White Blood Count 7.33 K/ul (4.8-10.8)
[2023-05-11 06:18] LABS: BUN Creatinine Ratio 21.2 (10-20); Calcium 8.6 mg/dl (8.6-10.3); Creatinine Clr Calc Pharmacy 46.6 ml/min; Est GFR (African American) 65.3 ml/min; Est GFR (Non-African American) 56.3 ml/min; Potassium 3.7 mmol/L (3.5-5.1)
[2023-05-11] MEDS: PANTOprazole 40 MG TAB PO SCH (08:21)
[2023-05-11] MEDS: amLODIPine BESYLATE 5 MG TAB PO SCH (08:21)
[2023-05-11] MEDS: MEMANTINE HCL 10 MG TAB PO SCH (08:21)
[2023-05-11] MEDS: ASPIRIN 81 MG ECTAB PO SCH (08:21)
[2023-05-11] MEDS: hydroCHLOROthiazide 25 MG TAB PO SCH (08:23)
[2023-05-11] MEDS: DORZOLAMIDE/TIMOLOL 22.3/6.8MG/ML 10 ML BTL OPB SCH ×2 (08:24→20:19)
--- NOTE | 2023-05-11 08:33 | Hospitalist Progress Note ---
Date of Service May 11, 2023 Assessment & Plan (1) COVID-19: Plan: 82yo male presenting with two days of progressive weakness and confusion as well as cough and subjective fever. Found to be POSITIVE for Covid-19 infection. Patient lives at home with his elderly . Is unable to ambulate or care for himself at this time. - no defined pneumonia seen on CXR -Maintain isolation precautions -No hypoxia - no indication for treatment with Dexamethasone -Symptomatic management - Tylenol, Robitussin PRN -Lovenox for DVT prophylaxis -PT/OT evaluation -Case management consultation for placement needs Patient's loose bowel movements may be a sign of his COVID will continue to watch for volume depletion with diarrhea and consider if he becomes febrile expanded testing for infectious etiology of diarrhea (2) Dementia: Plan: Patient oriented to self and location. Family reports increased confusion maybe metabolic encephalopathy from covid infection -Continue Aricept and Namenda -Frequent orientation (3) GERD (gastroesophageal reflux disease): Plan: Chronic. Stable -Continue Protonix 40mg po daily (4) Hypertension: Plan: Blood pressure mildly elevated -Continue home medications, Metoprolol HCTZ and Amlodipine -Monitor (5) Abnormal chest x-ray: Plan: Noted to have question of enlargement of the aortic silhouette. Likely positional but consideration for aneurysm. Patient denies chest pain or back pain -Consider outpatient imaging Admission and Anticipated Discharge Date Admission Date: May 10, 2023 Subjective Pleasantly confused gentleman still with some diarrhea according to nursing. Patient is not oriented to place or time He offers no focal complaint Physical Exam Physical Exam: Physical exam shows him to be in no distress cardiac exam is regular with a systolic murmur lungs are clear anteriorly and laterally abdomen is with hyperactive bowel sounds soft nontender no guarding Results & Data Results & Data Vital Signs (Past 12 Hours) Vital Signs Temp Pulse Pulse Resp BP BP Pulse Ox 05/11/23 08:20 98.6 F 71 16 157/76 H 95 05/11/23 05:53 71 05/11/23 02:47 98.2 F 75 18 143/74 H 94 05/10/23 23:38 72 05/10/23 23:26 72 05/10/23 23:25 99.0 F 18 170/81 H 94 05/10/23 23:15 05/10/23 23:15 99.0 F 72 18 170/81 H 94 05/10/23 23:09 05/10/23 22:42 78 16 147/89 H 92 05/10/23 22:42 76 05/10/23 22:30 181/96 H 05/10/23 22:00 73 26 H 173/128 H 94 05/10/23 21:30 71 22 161/88 H 05/10/23 21:00 71 21 164/86 H 95 05/10/23 20:48 74 24 164/93 H 94 O2 Del Method 05/11/23 08:20 Room Air 05/11/23 05:53 05/11/23 02:47 Room Air 05/10/23 23:38 05/10/23 23:26 05/10/23 23:25 Room Air 05/10/23 23:15 Room Air 05/10/23 23:15 Room Air 05/10/23 23:09 Room Air 05/10/23 22:42 Room Air 05/10/23 22:42 05/10/23 22:30 05/10/23 22:00 Room Air 05/10/23 21:30 05/10/23 21:00 Room Air 05/10/23 20:48 Room Air Laboratory Results Reviewed CBC reviewed chemistry PG Care Time/CCT Total # of Minutes Spent Total Time Spent with Patient: Total time spent is greater than 50% in coordination of care (as documented) at patient's floor/unit and/or counseling patient: Coding Level of Care Code 75849 SUB INP/OBS CARE 2/35MIN Diagnoses COVID-19 U07.1 Dementia F03.90 GERD (gastroesophageal reflux disease) K21.9 Hypertension I10 Abnormal chest x-ray R93.89
[2023-05-11] MEDS: LATANOPROST 0.005% OP SOLN 2.5 ML BTL OPB SCH (20:19)
[2023-05-11] MEDS: METOPROLOL SUCC 25MG EXT REL TAB PO SCH (20:20)
[2023-05-11] MEDS: ATORVASTATIN 40 MG TAB PO SCH (20:20)
[2023-05-11] MEDS: DONEPEZIL HCL 5 MG TAB PO SCH (20:20)
[2023-05-11] MEDS: ESCITALOPRAM OXALATE 10 MG TAB PO SCH (20:20)
[2023-05-12] MEDS: ASPIRIN 81 MG ECTAB PO SCH (08:32)
[2023-05-12] MEDS: amLODIPine BESYLATE 5 MG TAB PO SCH (08:32)
[2023-05-12] MEDS: MEMANTINE HCL 10 MG TAB PO SCH (08:32)
[2023-05-12] MEDS: hydroCHLOROthiazide 25 MG TAB PO SCH (08:33)
[2023-05-12] MEDS: DORZOLAMIDE/TIMOLOL 22.3/6.8MG/ML 10 ML BTL OPB SCH ×2 (08:33→19:52)
[2023-05-12] MEDS: PANTOprazole 40 MG TAB PO SCH (08:33)
[2023-05-12] MEDS ORDERED: LOPERAMIDE HCL 2 MG CAP PO PRN (12:19)
--- NOTE | 2023-05-12 17:21 | Hospitalist Progress Note ---
Date of Service May 12, 2023 Assessment & Plan (1) COVID-19: Plan: 82yo male presenting with two days of progressive weakness and confusion as well as cough and subjective fever. Found to be POSITIVE for Covid-19 infection. Patient lives at home with his elderly . Is unable to ambulate or care for himself at this time. - no defined pneumonia seen on CXR -Maintain isolation precautions -No hypoxia - no indication for treatment with Dexamethasone -Symptomatic management - Tylenol, Robitussin PRN -Lovenox for DVT prophylaxis -PT/OT evaluation recommending inpt rehab -Case management consultation for placement needs Patient's loose bowel movements may be a sign of his COVID will try a dose of Imodium (2) Dementia: Plan: Patient oriented to self and location. Family reports increased confusion maybe metabolic encephalopathy from covid infection -Continue Aricept and Namenda -Frequent orientation, improving (3) GERD (gastroesophageal reflux disease): Plan: Chronic. Stable -Continue Protonix 40mg po daily (4) Hypertension: Plan: Blood pressure mildly elevated -Continue home medications, Metoprolol HCTZ and Amlodipine (5) Abnormal chest x-ray: Plan: Noted to have question of enlargement of the aortic silhouette. Likely positional but consideration for aneurysm. Patient denies chest pain or back pain -Consider outpatient imaging Admission and Anticipated Discharge Date Admission Date: May 10, 2023 Subjective Pleasantly confused gentleman, with improving diarrhea Patient is now oriented to place He offers no focal complaint Physical Exam Physical Exam: Physical exam shows him to be in no distress cardiac exam is regular with a systolic murmur lungs are clear anteriorly and laterally abdomen is with hyperactive bowel sounds soft nontender no guarding Results & Data Results & Data Vital Signs (Past 12 Hours) Vital Signs Temp Pulse Pulse Resp BP Pulse Ox O2 Del Method 05/12/23 15:56 98.4 F 67 18 154/75 H 95 Room Air 05/12/23 15:27 97.9 F 68 16 131/71 95 Room Air 05/12/23 14:04 67 05/12/23 11:20 97.9 F 66 16 160/83 H 94 Room Air 05/12/23 09:18 93 Nasal Cannula 05/12/23 08:31 98.2 F 64 16 168/82 H 94 Room Air 05/12/23 06:07 65 O2 Flow Rate 05/12/23 15:56 05/12/23 15:27 05/12/23 14:04 05/12/23 11:20 05/12/23 09:18 3 05/12/23 08:31 05/12/23 06:07 PG Care Time/CCT Total # of Minutes Spent Total Time Spent with Patient: Total time spent is greater than 50% in coordination of care (as documented) at patient's floor/unit and/or counseling patient: Coding Level of Care Code 69662 SUB INP/OBS CARE 2/35MIN Diagnoses COVID-19 U07.1 Dementia F03.90 GERD (gastroesophageal reflux disease) K21.9 Hypertension I10 Abnormal chest x-ray R93.89
[2023-05-12] MEDS: LATANOPROST 0.005% OP SOLN 2.5 ML BTL OPB SCH (19:52)
[2023-05-12] MEDS: ENOXAPARIN INJ 40 MG/0.4 ML SYR SQ SCH (19:52)
[2023-05-12] MEDS: ESCITALOPRAM OXALATE 10 MG TAB PO SCH (19:53)
[2023-05-12] MEDS: DONEPEZIL HCL 5 MG TAB PO SCH (19:53)
[2023-05-12] MEDS: METOPROLOL SUCC 25MG EXT REL TAB PO SCH (19:54)
[2023-05-12] MEDS: ATORVASTATIN 40 MG TAB PO SCH (19:54)
--- NOTE | 2023-05-12 22:25 | Electrocardiogram Report ---
Test Reason : Blood Pressure : / mmHG Vent. Rate : 073 BPM Atrial Rate : 073 BPM P-R Int : 252 ms QRS Dur : 092 ms QT Int : 434 ms P-R-T Axes : 053 003 019 degrees QTc Int : 478 ms Sinus rhythm with 1st degree A-V block Otherwise normal ECG When compared with ECG of 22-MAR-2021 03:16, No significant change Confirmed by Johnathan Maldonado ([id number]) on 05/12/2023 10:24:40 PM Referred By: REFERRED SELF Confirmed By:Johnathan Maldonado
[2023-05-13 06:49] LABS: BUN Creatinine Ratio 22.1 (10-20); Creatinine Clr Calc Pharmacy 39.3 ml/min; Est GFR (African American) 53.1 ml/min; Est GFR (Non-African American) 45.8 ml/min; Magnesium 2.3 mg/dl (1.7-2.4); Potassium 3.1 mmol/L (3.5-5.1)
--- NOTE | 2023-05-13 07:51 | Hospitalist Progress Note ---
Date of Service May 13, 2023 Assessment & Plan (1) COVID-19: Plan: 82yo male presenting with two days of progressive weakness and confusion as well as cough and subjective fever. Found to be POSITIVE for Covid-19 infection. Patient lives at home with his elderly . Is unable to ambulate or care for himself at this time. - no defined pneumonia seen on CXR -Maintain isolation precautions 5 days at least -No hypoxia - no indication for treatment with Dexamethasone -Lovenox for DVT prophylaxis -PT/OT evaluation recommending inpt rehab -Case management consultation for placement needs Targeting [facility] Patient's loose bowel movements have resolved (2) Dementia: Plan: Patient oriented to self and location. Family reports increased confusion maybe metabolic encephalopathy from covid infection -Continue Aricept and Namenda -Frequent orientation, improving daily (3) GERD (gastroesophageal reflux disease): Plan: Chronic. Stable -Continue Protonix 40mg po daily (4) Hypertension: Plan: Blood pressure mildly elevated, likely situational and due to illness -Continue home medications, Metoprolol HCTZ and Amlodipine (5) Abnormal chest x-ray: Plan: Noted to have question of enlargement of the aortic silhouette. Likely positional but consideration for aneurysm. Patient denies chest pain or back pain -Consider outpatient imaging Plan PT/OT recommending rehab, looking for [facility] as [facility] home and family, no beds this weekend Admission and Anticipated Discharge Date Admission Date: May 10, 2023 Subjective Patient continues to make improvement daily much more clear mental state. Good conversation. Resolved diarrhea no respiratory distress Physical Exam Physical Exam: Awake alert and oriented x 2 Lungs are clear with good excursion Card exam is regular with slight systolic murmur Abdomen NABS soft and nontender Extremities with trace edema Results & Data Results & Data Vital Signs (Past 12 Hours) Vital Signs Temp Pulse Resp BP Pulse Ox O2 Del Method 05/13/23 07:32 97.5 F L 58 L 16 154/79 H 95 Room Air 05/12/23 19:49 97.7 F 69 16 126/67 95 Room Air Laboratory Results reviewed chemistry, ordered augmented potassium, receck in am magnesium reviewed and replete PG Care Time/CCT Total # of Minutes Spent Total Time Spent with Patient: Total time spent is greater than 50% in coordination of care (as documented) at patient's floor/unit and/or counseling patient: Coding Level of Care Code 84128 SUB INP/OBS CARE MIN Diagnoses COVID-19 U07.1 Dementia F03.90 GERD (gastroesophageal reflux disease) K21.9 Hypertension I10 Abnormal chest x-ray R93.89
[2023-05-13] MEDS: POTASSIUM CHLORIDE CRTAB 20 MEQ TABCR PO SCH ×3 (09:05→21:03)
[2023-05-13] MEDS: DORZOLAMIDE/TIMOLOL 22.3/6.8MG/ML 10 ML BTL OPB SCH ×2 (09:06→21:05)
[2023-05-13] MEDS: MEMANTINE HCL 10 MG TAB PO SCH (09:06)
[2023-05-13] MEDS: PANTOprazole 40 MG TAB PO SCH (09:07)
[2023-05-13] MEDS: ASPIRIN 81 MG ECTAB PO SCH (09:07)
[2023-05-13] MEDS: amLODIPine BESYLATE 5 MG TAB PO SCH (09:07)
[2023-05-13] MEDS: METOPROLOL SUCC 25MG EXT REL TAB PO SCH (21:04)
[2023-05-13] MEDS: DONEPEZIL HCL 5 MG TAB PO SCH (21:04)
[2023-05-13] MEDS: ESCITALOPRAM OXALATE 10 MG TAB PO SCH (21:04)
[2023-05-13] MEDS: ATORVASTATIN 40 MG TAB PO SCH (21:04)
[2023-05-13] MEDS: LATANOPROST 0.005% OP SOLN 2.5 ML BTL OPB SCH (21:05)
[2023-05-13] MEDS: ENOXAPARIN INJ 40 MG/0.4 ML SYR SQ SCH (21:06)
[2023-05-14 06:23] LABS: Creatinine Clr Calc Pharmacy 35.9 ml/min; Est GFR (African American) 47.7 ml/min; Est GFR (Non-African American) 41.1 ml/min
[2023-05-14] MEDS: PANTOprazole 40 MG TAB PO SCH (08:40)
[2023-05-14] MEDS: POTASSIUM CHLORIDE CRTAB 20 MEQ TABCR PO SCH (08:40)
[2023-05-14] MEDS: DORZOLAMIDE/TIMOLOL 22.3/6.8MG/ML 10 ML BTL OPB SCH ×2 (08:40→21:12)
[2023-05-14] MEDS: MEMANTINE HCL 10 MG TAB PO SCH (08:41)
[2023-05-14] MEDS: amLODIPine BESYLATE 5 MG TAB PO SCH (08:41)
[2023-05-14] MEDS: ASPIRIN 81 MG ECTAB PO SCH (08:41)
--- NOTE | 2023-05-14 11:48 | Hospitalist Progress Note ---
Date of Service May 14, 2023 Assessment & Plan (1) COVID-19: Plan: 82yo male presenting with two days of progressive weakness and confusion as well as cough and subjective fever. Found to be POSITIVE for Covid-19 infection. Patient lives at home with his elderly . she is also ill at home Is unable to ambulate or care for himself, however some improvement - no defined pneumonia seen on CXR -Maintain isolation precautions 5 days at least -No hypoxia - no indication for treatment with Dexamethasone -Lovenox for DVT prophylaxis -PT/OT evaluation recommending inpt rehab -Case management consultation for placement needs Targeting [facility] Patient's loose bowel movements have resolved (2) Dementia: Plan: Patient oriented to self and location. Family reports increased confusion maybe metabolic encephalopathy from covid infection -Continue Aricept and Namenda -Frequent orientation, improving daily (3) GERD (gastroesophageal reflux disease): Plan: Chronic. Stable -Continue Protonix 40mg po daily (4) Hypertension: Plan: Blood pressure mildly elevated, likely situational and due to illness -Continue home medications, Metoprolol HCTZ and Amlodipine (5) Abnormal chest x-ray: Plan: Noted to have question of enlargement of the aortic silhouette. Likely positional but consideration for aneurysm. Patient denies chest pain or back pain -Consider outpatient imaging Plan PT/OT recommending rehab, looking for [facility] as near home and family, no beds this weekend Admission and Anticipated Discharge Date Admission Date: May 10, 2023 Subjective Patient continues to be more oriented every daily much more clear mental state. Good conversation. Resolved diarrhea no respiratory distress Physical Exam Physical Exam: Awake alert and oriented x 2 Lungs are clear with good excursion Card exam is regular with slight systolic murmur Abdomen NABS soft and nontender Extremities with trace edema Results & Data Results & Data Vital Signs (Past 12 Hours) Vital Signs Temp Pulse Resp BP Pulse Ox O2 Del Method 05/14/23 07:35 Room Air 05/14/23 07:32 98.6 F 65 18 137/83 96 Room Air Laboratory Results reviewed creatinine PG Care Time/CCT Total # of Minutes Spent Total Time Spent with Patient: Total time spent is greater than 50% in coordination of care (as documented) at patient's floor/unit and/or counseling patient: Coding Level of Care Code 26881 SUB INP/OBS CARE 2/35MIN Diagnoses COVID-19 U07.1 Dementia F03.90 GERD (gastroesophageal reflux disease) K21.9 Hypertension I10 Abnormal chest x-ray R93.89
[2023-05-14] MEDS: LATANOPROST 0.005% OP SOLN 2.5 ML BTL OPB SCH (21:12)
[2023-05-14] MEDS: ENOXAPARIN INJ 40 MG/0.4 ML SYR SQ SCH (21:13)
[2023-05-14] MEDS: ESCITALOPRAM OXALATE 10 MG TAB PO SCH (21:14)
[2023-05-14] MEDS: DONEPEZIL HCL 5 MG TAB PO SCH (21:14)
[2023-05-14] MEDS: METOPROLOL SUCC 25MG EXT REL TAB PO SCH (21:14)
[2023-05-14] MEDS: ATORVASTATIN 40 MG TAB PO SCH (21:14)
[2023-05-15] MEDS: amLODIPine BESYLATE 5 MG TAB PO SCH (08:33)
[2023-05-15] MEDS: PANTOprazole 40 MG TAB PO SCH (08:33)
[2023-05-15] MEDS: ASPIRIN 81 MG ECTAB PO SCH (08:34)
[2023-05-15] MEDS: DORZOLAMIDE/TIMOLOL 22.3/6.8MG/ML 10 ML BTL OPB SCH ×2 (08:34→22:22)
[2023-05-15] MEDS: MEMANTINE HCL 10 MG TAB PO SCH (08:34)
--- NOTE | 2023-05-15 14:49 | Hospitalist Progress Note ---
Date of Service May 15, 2023 Assessment & Plan (1) COVID-19: Plan: 82yo male presenting with two days of progressive weakness and confusion as well as cough and subjective fever. Found to be POSITIVE for Covid-19 infection. Patient lives at home with his elderly . she is also ill at home Is unable to ambulate or care for himself, however some improvement but not to independent state - no defined pneumonia seen on CXR -Maintain isolation precautions 11 days at least -No hypoxia - no indication for treatment with Dexamethasone -Lovenox for DVT prophylaxis -PT/OT evaluation recommending inpt rehab -Case management consultation for placement needs Targeting [facility] Patient's loose bowel movements have resolved (2) Dementia: Plan: Patient oriented to self and location. Family reports increased confusion maybe metabolic encephalopathy from covid infection -Continue Aricept and Namenda -Frequent orientation, better each day (3) GERD (gastroesophageal reflux disease): Plan: Chronic. Stable -Continue Protonix 40mg po daily (4) Hypertension: Plan: Blood pressure mildly elevated, likely situational and due to illness -Continue home medications, Metoprolol HCTZ and Amlodipine (5) Abnormal chest x-ray: Plan: Noted to have question of enlargement of the aortic silhouette. Likely positional but consideration for aneurysm. Patient denies chest pain or back pain -Consider outpatient imaging Plan PT/OT recommending rehab, looking for [facility] as [facility] home and family, no beds at present Admission and Anticipated Discharge Date Admission Date: May 10, 2023 Subjective Patient continues to be more oriented every daily clear mental stateoreinted 2/3. Good conversation. Resolved diarrhea no respiratory distress Physical Exam Physical Exam: Awake alert and oriented x 2 Lungs are clear with good excursion Card exam is regular with slight systolic murmur Abdomen NABS soft and nontender Extremities with trace edema Results & Data Results & Data Vital Signs (Past 12 Hours) Vital Signs Temp Pulse Resp BP Pulse Ox O2 Del Method 05/15/23 07:30 Room Air 05/15/23 07:25 97.9 F 66 16 134/79 95 Room Air PG Care Time/CCT Total # of Minutes Spent Total Time Spent with Patient: Total time spent is greater than 50% in coordination of care (as documented) at patient's floor/unit and/or counseling patient: Coding Level of Care Code 36148 SUB INP/OBS CARE MIN Diagnoses COVID-19 U07.1 Dementia F03.90 GERD (gastroesophageal reflux disease) K21.9 Hypertension I10 Abnormal chest x-ray R93.89
[2023-05-15] MEDS: ESCITALOPRAM OXALATE 10 MG TAB PO SCH (22:21)
[2023-05-15] MEDS: DONEPEZIL HCL 5 MG TAB PO SCH (22:22)
[2023-05-15] MEDS: ATORVASTATIN 40 MG TAB PO SCH (22:22)
[2023-05-15] MEDS: METOPROLOL SUCC 25MG EXT REL TAB PO SCH (22:22)
[2023-05-15] MEDS: LATANOPROST 0.005% OP SOLN 2.5 ML BTL OPB SCH (22:23)
[2023-05-15] MEDS: ENOXAPARIN INJ 40 MG/0.4 ML SYR SQ SCH (22:23)
[2023-05-16] MEDS: amLODIPine BESYLATE 5 MG TAB PO SCH (08:23)
[2023-05-16] MEDS: ASPIRIN 81 MG ECTAB PO SCH (08:23)
[2023-05-16] MEDS: MEMANTINE HCL 10 MG TAB PO SCH (08:24)
[2023-05-16] MEDS: PANTOprazole 40 MG TAB PO SCH (08:24)
[2023-05-16] MEDS: DORZOLAMIDE/TIMOLOL 22.3/6.8MG/ML 10 ML BTL OPB SCH (08:24)
--- NOTE | 2023-05-16 18:43 | Discharge Summary ---
Date of Service May 16, 2023 Admission HPI Per Admitting Provider Ceasar Correia is an 82yo male with history of HTN, HLP, GERD and Dementia presenting with diffuse, generalized weakness as well as confusion, cough and subjective fever. Patient had a doctor's appointment yesterday and he had a difficult time ambulating secondary to weakness. His symptoms worsened today which prompted his family to bring him to the ER. Patient had a worsening cough today as well and is more confused than usual. No report of chest pain, palpitations, nausea, vomiting, diarrhea. In the ER he is afebrile, HD stable. Adequate oxygenation on room air with no respiratory distress. Principal Diagnosis metabolic encephalopathy-resolved covid infection diarrhea resolved Discharge Exam awake and alert, no complaints lungs are clear Discharge Data Allergies Allergy/AdvReac Type Severity Reaction Status Date / Time No Known Allergies Allergy Verified 05/10/23 21:37 Consultations 05/10/23 20:48 ED Decision to Admit Stat Ordered Studies 05/10/23 19:44 CT head/brain wo con Stat Hospital Course (1) COVID-19: 82yo male presenting with two days of progressive weakness and confusion as well as cough and subjective fever. Found to be POSITIVE for Covid-19 infection. Patient lives at home with his elderly . she is also ill at home Is unable to ambulate or care for himself, however some improvement but not to independent state transfer to supported living situation - no defined pneumonia seen on CXR -Maintain isolation precautions 11 days at least -No hypoxia - -PT/OT evaluation recommending inpt rehab - Patient's loose bowel movements have resolved (2) Dementia: Patient oriented to self and location. Family reports increased confusion maybe metabolic encephalopathy from covid infection -Continue Aricept and Namenda -Frequent orientation, better each day (3) GERD (gastroesophageal reflux disease): Chronic. Stable -Continue Protonix 40mg po daily (4) Hypertension: Blood pressure mildly elevated, likely situational and due to illness -Continue home medications, Metoprolol HCTZ and Amlodipine (5) Abnormal chest x-ray: Noted to have question of enlargement of the aortic silhouette. Likely positional but consideration for aneurysm. Patient denies chest pain or back pain -Consider outpatient imaging Total Time Total Time Spent Total Time Spent (In Minutes): Discharge required less than 30 minutes to create this discharge Discharge Plan Discharge Items Patient Disposition: Transfer Nursing Home Fac Reason For Visit: COVID-19, WEAKNESS, CONFUSION Discharge Diagnosis: metabolic encephalopathy-resolved covid infection diarrhea resolved Activity: Per Instructions section Activity Comment: PT/OT evaluation Non-emergency contact: Primary Care Provider Call non-emergency contact if: your symptoms worsen Follow-up/Referrals: Chanel Cruz MD [Primary Care Provider] - Diet: Regular Addtl Attending Provider Instructions: Pt was diagnosed with covid, his presentation was increased confusion on top of baseline dementia, he has improved. He did not have any respiratory symptoms c/w covid except for diarrhea, and no imaging to suggest pneumonia certainly continue to observe your facility infection control recommendations Addtl Chief Information Security Officer Provider Instructions: CXR Noted to have question of enlargement of the aortic silhouette. Likely positional but consideration for aneurysm. Patient denies chest pain or back pain -Consider outpatient imaging Pending Studies at Discharge: No Stand-Alone Forms: My [facility] Skilled Items Patient informed of condition?: Yes DNR: Yes (conditional code no intubation or ventilation all other resus permitted ) Discharge Level of Care: Skilled Communicable Disease: Yes Discharge Prognosis: Stable Lines: None Urinary Catheter: No Medications and DC Order Prescriptions: Continued donepezil 5 mg tablet 5 mg PO HS Qty: 90 3RF atorvastatin 40 mg Tablet 40 mg PO QPM Qty: 30 0RF aspirin [Christina Low Dose Aspirin] 81 mg Tablet,Delayed Release (Dr/Ec) 81 mg PO QAM Qty: 30 0RF amlodipine 10 mg Tablet 10 mg PO QAM Qty: 30 0RF pantoprazole 40 mg Tablet,Delayed Release (Dr/Ec) 40 mg PO QAM Qty: 30 0RF escitalopram oxalate 10 mg tablet 10 mg PO QPM Qty: 30 0RF Centrum Silver 0.4-300-250 mg-mcg-mcg Tablet 1 tab PO QAM Qty: 30 0RF latanoprost 0.005 % drops 1 drp OPB HS ferrous sulfate 325 mg (65 mg iron) Tablet 325 mg PO DAILY dorzolamide-timolol 22.3-6.8 mg/mL drops 1 drp OPB BID metoprolol succinate 25 mg tablet extended release 24 hr 25 mg PO QPM memantine 5 mg tablet 10 mg PO QAM Discontinued hydrochlorothiazide 12.5 mg Tablet 12.5 mg PO QAM Qty: 30 0RF potassium chloride 10 mEq tablet extended release 10 meq PO QAM Discharge Orders: Discharge Order (Routine); Ordered 05/16/23 Ordered By: Krunal Santoyo/Other Patient Handouts: 2019 Novel Coronavirus Admission Data Admit Date/Time: 05/10/23 21:25 Attending Provider: Krunal Truong Admit Provider: Caryl Chapa Primary Care Provider: Chanel Cruz Other Providers: Caryl Chapa Other Interventions: Discharge Summary Assessment (RN) Last Done: 05/16/23 10:43 Coding Level of Care Code 17644 IN/OBS DISCH 30 MIN/LESS Diagnoses COVID-19 U07.1 Dementia F03.90 GERD (gastroesophageal reflux disease) K21.9 Hypertension I10 Abnormal chest x-ray R93.89
== END 2023-05-16 13:18 | DRG 177 ==
LOC: ED 18:22 → SUATTDRO 21:25 → 2W 21:25 → 3E 05-12 15:52